=== PATIENT | male | born 1945 | race Caucasian/White ===

== ENCOUNTER 2016-09-15 10:58 | Emergency (ER) | payer OTHER ==
[~2016-09-15] VITALS: Wt 64.0 kg
[2016-09-15] MEDS ORDERED: ACETAMINOPHEN 500 MG TAB PO STA (11:46)
[2016-09-15] MEDS ORDERED: ACET500C5 PO (14:24)
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
== END 2016-09-15 14:50 | disposition home or self-care (01) ==
LOC: FTE 10:58
DX: S46.212A Strain of muscle, fascia and tendon of other parts of biceps, left arm, initial encounter (principal); V49.49XA Driver injured in collision with other motor vehicles in traffic accident, initial encounter
CPT/HCPCS: 72040; 73060; 73630

== ENCOUNTER 2018-10-30 17:58 | Inpatient (IN) | payer OTHER ==
[~2018-10-30] VITALS: Ht 167.6 cm; Wt 63.7 kg
[~2018-10-30 17:58] MED LIST: ACET500C5 PO
[2018-10-30] MEDS ORDERED: PIPER-TAZO 3.375 GM IV (PMX) 100 ML IVPB STA (23:57)
[2018-10-30] MEDS ORDERED: VANCOMYCIN 1 GM (PMX) 250 ML IVPB STA (23:57)
[2018-10-31] MEDS ORDERED: morphine 4 MG/ML VIAL IV STA (01:59)
[2018-10-31] MEDS ORDERED: ONDANSETRON 4 MG INJ IV PRN ×2 (02:00→04:00)
[2018-10-31] MEDS ORDERED: ACETAMINOPHEN 325 MG TAB PO PRN (02:00)
[2018-10-31 03:08] VITALS: Ht 167.6 cm; Wt 63.7 kg
[2018-10-31 03:32] VITALS: BP 159/72; PULSE 85; RESP 18
[2018-10-31] MEDS ORDERED: MTF1000T PO (03:39)
[2018-10-31] MEDS ORDERED: ASPI-831 PO (03:39)
[2018-10-31] MEDS ORDERED: HYDR-3980 PO (03:40)
[2018-10-31] MEDS ORDERED: ATOR20TA38 PO (03:41)
[2018-10-31] MEDS ORDERED: BENA20TA4 PO (03:43)
[2018-10-31] MEDS ORDERED: SITA100T11 PO (03:43)
[2018-10-31] MEDS ORDERED: GLIP10TA14 PO (03:43)
[2018-10-31] MEDS ORDERED: CLOP75TA27 PO (03:43)
[2018-10-31] MEDS ORDERED: GLUCOSE GEL 15 GRAM TUBE PO PRN ×2 (04:00)
[2018-10-31] MEDS ORDERED: DEXTROSE 50% 50 ML SYRINGE IV PRN ×2 (04:00)
[2018-10-31] MEDS ORDERED: HYDROCODONE/APAP (5/325) TAB PO PRN (04:00)
[2018-10-31] MEDS ORDERED: NACL 0.9% 3 ML SYG IV SCH (04:00)
[2018-10-31] MEDS ORDERED: GLUCAGON 1 MG INJ IM PRN (04:00)
[2018-10-31] MEDS ORDERED: GLUCOSE GEL 15 GRAM TUBE BUCCAL PRN (04:00)
[2018-10-31] MEDS ORDERED: PENDING SANTYL ORDER FOR WOUND CARE XX PRN (05:30)
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
--- NOTE | 2018-10-31 06:52 | HP ---
Date/Time of Note Date/Time of Note DATE: 10/31/18 TIME: 06:49 Assessment/Plan VTE Prophylaxis Pharmacological prophylaxis: heparin Lines/Catheters IV Catheter Type (from Nrsg): Saline Lock Assessment/Plan Assessment/Plan 1. Right great toe infection -IV antibiotic -Podiatry and ID consult -X-ray of foot. Additional imaging as needed 2. Hypertension: Continue home meds. Adjust as needed 3. Type 2 diabetes: Insulin while in-house Result Diagram: 10/31/18 0544 10/31/18 0010 Results 24hrs Laboratory Tests Test 10/31/18 00:10 10/31/18 05:44 White Blood Count 8.4 8.2 Red Blood Count 4.51 L 4.70 Hemoglobin 12.1 L 12.5 L Hematocrit 37.0 L 38.5 L Mean Corpuscular Volume 82.0 81.9 L Mean Corpuscular Hemoglobin 26.8 L 26.6 L Mean Corpuscular Hemoglobin Concent 32.7 32.5 Red Cell Distribution Width 13.2 13.3 Platelet Count 176 190 Mean Platelet Volume 10.8 H 11.3 H Immature Granulocytes % 0.400 0.400 Neutrophils % 55.0 60.2 Lymphocytes % 25.1 21.4 Monocytes % 6.6 6.4 Eosinophils % 12.3 H 11.1 H Basophils % 0.6 0.5 Nucleated Red Blood Cells % 0.0 0.0 Immature Granulocytes # 0.030 0.030 Neutrophils # 4.6 5.0 Lymphocytes # 2.1 1.8 Monocytes # 0.6 0.5 Eosinophils # 1.0 H 0.9 H Basophils # 0.1 0.0 Nucleated Red Blood Cells # 0.0 0.0 Prothrombin Time 12.7 Prothrombin Time Ratio 1.0 INR International Normalized Ratio 0.94 Activated Partial Thromboplast Time 27.0 Sodium Level 136 Potassium Level 4.1 Chloride Level 100 Carbon Dioxide Level 23 Anion Gap 13 Blood Urea Nitrogen 10 Creatinine 0.66 Est Glomerular Filtrat Rate mL/min Glucose Level 164 Calcium Level 9.3 Total Bilirubin 0.2 Direct Bilirubin 0.00 Indirect Bilirubin 0.2 Aspartate Amino Transf (AST/SGOT) 25 Alanine Aminotransferase (ALT/SGPT) 22 Alkaline Phosphatase 80 Total Protein 7.3 Albumin 4.3 Globulin 3.00 Albumin/Globulin Ratio 1.43 HPI/ROS Admit Date/Time Admit Date/Time Oct 31, 2018 at 02:00 Hx of Present Illness This is a 73-year-old male with a history of hypertension, type 2 diabetes, dyslipidemia who presented to the ER complaining of right great toe infection of almost 2 months duration. Patient denied trauma. Patient afebrile, normal WBC. PMH/Family/Social Past Medical History Past Surgical Hx: other (See HPI) Family History Significant Family History: no pertinent family hx Social History Alcohol Use: other Smoking Status: Never smoker Drug Use: none Exam/Review of Systems Vital Signs Exam Constitutional: alert, oriented, well developed, other (No acute distress. Answering questions appropriately) Head: normocephalic, atraumatic Eyes: EOMI, PERRL Respiratory: clear to auscultation, normal air movement Cardiovascular: regular rate and rhythm, nl pulses Gastrointestinal: soft, other (Tenderness in the epigastric area) Extremities: other (Trace pitting edema noted) Medications Current Medications Ondansetron HCl (Zofran Inj) 4 mg BRIDGE ORDER PRN IV NAUSEA/VOMITING; Start 10/31/18 at 02:00; Stop 11/01/18 at 01:59 Acetaminophen (Tylenol Tab) 650 mg ER BRIDGE PRN PO .MILD PAIN 1-3 OR TEMP; Start 10/31/18 at 02:00; Stop 11/01/18 at 01:59 IV Flush (NS 3 ml) 3 ml PER PROTOCOL IV ; Start 10/31/18 at 04:00 Ondansetron HCl (Zofran Inj) 4 mg Q6H PRN IV NAUSEA/VOMITING; Start 10/31/18 at 04:00 Acetaminophen (Tylenol Tab) 650 mg Q6H PRN PO .PAIN 1-3 OR TEMP; Start 10/31/18 at 04:00 Acetaminophen/ Hydrocodone Bitart ([place] (5/325)) 1 tab Q6H PRN PO .MOD PAIN 4- 6; Start 10/31/18 at 04:00 Acetaminophen/ Hydrocodone Bitart ([place] (5/325)) 2 tab Q6H PRN PO .SEVERE PAIN 7-10; Start 10/31/18 at 04:00 Heparin Sodium (Porcine) (Heparin (5000 Units/1ml)) 5,000 unit Q12 SC ; Start 10/31/18 at 09:00 Diagnostic Test (Pha) (Accu-Chek) 1 ea 02 XX ; Start 11/01/18 at 02:00 Insulin Glargine (Lantus) 10 units DAILY@2000 SC ; Start 10/31/18 at 20:00 Insulin Aspart (Novolog Insulin Pen) NOVOLOG *MODERATE* ALGORITHM WITH MEALS BEDTIME SC ; Start 10/31/18 at 08:00 Miscellaneous Information 1 ea NOTE XX ; Start 10/31/18 at 04:00 Glucose (Glutose) 15 gm Q15M PRN PO DECREASED GLUCOSE; Start 10/31/18 at 04:00 Glucose (Glutose) 22.5 gm Q15M PRN PO DECREASED GLUCOSE; Start 10/31/18 at 04:00 Dextrose (D50w Syringe) 25 ml Q15M PRN IV DECREASED GLUCOSE; Start 10/31/18 at 04:00 Dextrose (D50w Syringe) 50 ml Q15M PRN IV DECREASED GLUCOSE; Start 10/31/18 at 04:00 Glucagon (Glucagen) 1 mg Q15M PRN IM DECREASED GLUCOSE; Start 10/31/18 at 04:00 Glucose (Glutose) 15 gm Q15M PRN BUCCAL DECREASED GLUCOSE; Start 10/31/18 at 04:00 [facility]iscellaneous Information [facility] This patient emery... PRN PRN XX WOUND CARE; Start 10/31/18 at 05:30 Coded Allergies: No Known Allergy (Unverified , 10/30/18) Social History Smoking Status: Never smoker Exam/Review of Systems Vital Signs Vitals Vital Signs Date Temp Pulse Resp B/P (MAP) Pulse Ox O2 O2 Flow FiO2 Time Delivery Rate 10/31/18 98.0 85 18 159/72 97 Room Air 03:32 (101) TORRES ALMONTE MD Oct 31, 2018 06:52
[2018-10-31] MEDS: INSULIN ASPART [NOVOLOG] 3 ML PEN SC SCH ×4 (08:00→20:29)
[2018-10-31] MEDS: HEPARIN 5,000 UNIT/1 ML VIAL SC SCH ×2 (08:09→20:29)
[2018-10-31 08:26] VITALS: BP 159/72; PULSE 80; RESP 18
--- NOTE | 2018-10-31 12:54 | PN ---
Date/Time of Note Date/Time of Note DATE: 10/31/18 TIME: 12:50 Assessment/Plan VTE Prophylaxis Risk score (from Ns)>0 risk: 3 SCD applied (from Ns): Yes Pharmacological prophylaxis: other Lines/Catheters IV Catheter Type (from [facility]): [place] Assessment/Plan Hospital Course S: Patient had no acute events, waiting for MRI to be performed. O: VS - see below PE: Gen: No acute distress Head: Atraumatic Eyes: Normal Conjunctiva ENT: Normal External Ears, Nose and Mouth. Neck: Full range of motion. No meningismus. Resp: Clear to auscultation bilaterally Cardio: Regular rate and rhythm, no murmurs Abd: Soft, non tender, non distended. Normal bowel sounds Ext: Right big toe with necrotic tip and surrounding purulent drainage from the wound. Distal foot with erythema, warmth, swelling, and tenderness to palpation. Very faint DP and PT pulses bilaterally. Bilateral feet warm to touch. The rest of the legs are nonedematous. No cyanosis. Neur: No focal deficits Assessment/Plan: 73-year-old male who presents with: 1. Right great toe infection: No fevers, white blood cell count is normal -For now continue IV antibiotic -Follow-up recommendations from podiatry and ID consult -consider vascular surgery consult as patient states he does see a vascular surgeon as an outpatient but does not remember the name of this doctor. -Awaiting MRI of the foot, follow-up results of this 2. Hypertension: Presently stable - continue home meds. Adjust as needed 3. Type 2 diabetes: A1c was 6.7 -Monitor, continue insulin while in-house Result Diagram: 10/31/18 0544 10/31/18 0544 Results 24hrs Laboratory Tests Test 10/31/18 00:10 10/31/18 05:44 10/31/18 08:02 10/31/18 12:06 White Blood Count 8.4 8.2 Red Blood Count 4.51 L 4.70 Hemoglobin 12.1 L 12.5 L Hematocrit 37.0 L 38.5 L Mean Corpuscular 82.0 81.9 L Volume Mean Corpuscular 26.8 L 26.6 L Hemoglobin Mean Corpuscular 32.7 32.5 Hemoglobin Concent Red Cell 13.2 13.3 Distribution Width Platelet Count 176 190 Mean Platelet Volume 10.8 H 11.3 H Immature 0.400 0.400 Granulocytes % Neutrophils % 55.0 60.2 Lymphocytes % 25.1 21.4 Monocytes % 6.6 6.4 Eosinophils % 12.3 H 11.1 H Basophils % 0.6 0.5 Nucleated Red Blood 0.0 0.0 Cells % Immature 0.030 0.030 Granulocytes # Neutrophils # 4.6 5.0 Lymphocytes # 2.1 1.8 Monocytes # 0.6 0.5 Eosinophils # 1.0 H 0.9 H Basophils # 0.1 0.0 Nucleated Red Blood 0.0 0.0 Cells # Prothrombin Time 12.7 Prothrombin Time 1.0 Ratio INR International 0.94 Normalized Ratio Activated 27.0 Partial Thromboplast Time Sodium Level 136 142 Potassium Level 4.1 4.2 Chloride Level 100 106 Carbon Dioxide Level 23 25 Anion Gap 13 11 Blood Urea Nitrogen 10 10 Creatinine 0.66 0.63 Est Glomerular Filtrat Rate mL/min Glucose Level 164 67 #L Calcium Level 9.3 9.5 Total Bilirubin 0.2 0.2 Direct Bilirubin 0.00 0.00 Indirect Bilirubin 0.2 0.2 Aspartate Amino 25 21 Transf (AST/SGOT) Alanine 22 20 Aminotransferase (AL T/SGPT) Alkaline Phosphatase 80 78 Total Protein 7.3 7.0 Albumin 4.3 4.1 Globulin 3.00 2.90 Albumin/Globulin 1.43 1.41 Ratio Hemoglobin A1c 6.7 H Phosphorus Level 4.3 Magnesium Level 1.9 Triglycerides Level 111 Cholesterol Level 71 L LDL Cholesterol, 17 Calculated HDL Cholesterol 32 Cholesterol/HDL 2.2 Ratio Bedside Glucose 110 141 Exam/Review of Systems Exam Vitals Vital Signs Date Temp Pulse Resp B/P (MAP) Pulse Ox O2 O2 Flow FiO2 Time Delivery Rate 10/31/18 97.5 80 18 159/72 97 08:26 (101) 10/31/18 Room Air 03:32 Results Results 24hrs Laboratory Tests Test 10/31/18 00:10 10/31/18 05:44 10/31/18 08:02 10/31/18 12:06 White Blood Count 8.4 8.2 Red Blood Count 4.51 L 4.70 Hemoglobin 12.1 L 12.5 L Hematocrit 37.0 L 38.5 L Mean Corpuscular 82.0 81.9 L Volume Mean Corpuscular 26.8 L 26.6 L Hemoglobin Mean Corpuscular 32.7 32.5 Hemoglobin Concent Red Cell 13.2 13.3 Distribution Width Platelet Count 176 190 Mean Platelet Volume 10.8 H 11.3 H Immature 0.400 0.400 Granulocytes % Neutrophils % 55.0 60.2 Lymphocytes % 25.1 21.4 Monocytes % 6.6 6.4 Eosinophils % 12.3 H 11.1 H Basophils % 0.6 0.5 Nucleated Red Blood 0.0 0.0 Cells % Immature 0.030 0.030 Granulocytes # Neutrophils # 4.6 5.0 Lymphocytes # 2.1 1.8 Monocytes # 0.6 0.5 Eosinophils # 1.0 H 0.9 H Basophils # 0.1 0.0 Nucleated Red Blood 0.0 0.0 Cells # Prothrombin Time 12.7 Prothrombin Time 1.0 Ratio INR International 0.94 Normalized Ratio Activated 27.0 Partial Thromboplast Time Sodium Level 136 142 Potassium Level 4.1 4.2 Chloride Level 100 106 Carbon Dioxide Level 23 25 Anion Gap 13 11 Blood Urea Nitrogen 10 10 Creatinine 0.66 0.63 Est Glomerular Filtrat Rate mL/min Glucose Level 164 67 #L Calcium Level 9.3 9.5 Total Bilirubin 0.2 0.2 Direct Bilirubin 0.00 0.00 Indirect Bilirubin 0.2 0.2 Aspartate Amino 25 21 Transf (AST/SGOT) Alanine 22 20 Aminotransferase (AL T/SGPT) Alkaline Phosphatase 80 78 Total Protein 7.3 7.0 Albumin 4.3 4.1 Globulin 3.00 2.90 Albumin/Globulin 1.43 1.41 Ratio Hemoglobin A1c 6.7 H Phosphorus Level 4.3 Magnesium Level 1.9 Triglycerides Level 111 Cholesterol Level 71 L LDL Cholesterol, 17 Calculated HDL Cholesterol 32 Cholesterol/HDL 2.2 Ratio Bedside Glucose 110 141 Medications Medication Current Medications Ondansetron HCl (Zofran Inj) 4 mg BRIDGE ORDER PRN IV NAUSEA/VOMITING; Start 10/31/18 at 02:00; Stop 11/01/18 at 01:59 Acetaminophen (Tylenol Tab) 650 mg ER BRIDGE PRN PO .MILD PAIN 1-3 OR TEMP; Start 10/31/18 at 02:00; Stop 11/01/18 at 01:59 IV Flush (NS 3 ml) 3 ml PER PROTOCOL IV ; Start 10/31/18 at 04:00 Ondansetron HCl (Zofran Inj) 4 mg Q6H PRN IV NAUSEA/VOMITING; Start 10/31/18 at 04:00 Acetaminophen (Tylenol Tab) 650 mg Q6H PRN PO .PAIN 1-3 OR TEMP; Start 10/31/18 at 04:00 Acetaminophen/ Hydrocodone Bitart ([place] (5/325)) 1 tab Q6H PRN PO .MOD PAIN 4- 6; Start 10/31/18 at 04:00 Acetaminophen/ Hydrocodone Bitart ([place] (5/325)) 2 tab Q6H PRN PO .SEVERE PAIN 7-10; Start 10/31/18 at 04:00 Heparin Sodium (Porcine) (Heparin (5000 Units/1ml)) 5,000 unit Q12 SC Last administered on 10/31/18at 08:09; Admin Dose 5,000 UNIT; Start 10/31/18 at 09:00 Diagnostic Test (Pha) (Accu-Chek) 1 ea 02 XX ; Start 11/01/18 at 02:00 Insulin Glargine (Lantus) 10 units DAILY@2000 SC ; Start 10/31/18 at 20:00 Insulin Aspart (Novolog Insulin Pen) NOVOLOG *MODERATE* ALGORITHM WITH MEALS BEDTIME SC Last administered on 10/31/18at 12:12; Admin Dose 2 UNIT; Start 10/31/18 at 08:00 Miscellaneous Information 1 ea NOTE XX ; Start 10/31/18 at 04:00 Glucose (Glutose) 15 gm Q15M PRN PO DECREASED GLUCOSE; Start 10/31/18 at 04:00 Glucose (Glutose) 22.5 gm Q15M PRN PO DECREASED GLUCOSE; Start 10/31/18 at 04:00 Dextrose (D50w Syringe) 25 ml Q15M PRN IV DECREASED GLUCOSE; Start 10/31/18 at 04:00 Dextrose (D50w Syringe) 50 ml Q15M PRN IV DECREASED GLUCOSE; Start 10/31/18 at 04:00 Glucagon (Glucagen) 1 mg Q15M PRN IM DECREASED GLUCOSE; Start 10/31/18 at 04:00 Glucose (Glutose) 15 gm Q15M PRN BUCCAL DECREASED GLUCOSE; Start 10/31/18 at 04:00 Miscellaneous Information (Pending [facility] Order For Wound Care) This patient emery... PRN PRN XX WOUND CARE; Start 10/31/18 at 05:30 MARIANA PAUL Oct 31, 2018 12:54
--- NOTE | 2018-10-31 13:46 | CONS ---
Assessment/Plan Assessment/Plan Assessment/Plan (Daily) Known PVD s/p RLE angio in past few weeks, w/ improvement in R 1st toe wound/pain but now worsening symptoms again Plan: -Appreciate medial management -Agree w/ abx -Will plan for outpatient RLE angiogram - d/w pt who agrees w/ plan -Cont wound care as per Dr. Wilhelm -D/w Dr. Paul Consultation Date/Type/Reason Admit Date/Time Oct 31, 2018 at 02:00 Date of Consultation: Oct 31, 2018 Reason for Consultation R 1st toe wound Requesting Provider: MARIANA PAUL Date/Time of Note DATE: 10/31/18 TIME: 13:28 Hx of Present Illness 73-year-old male with hypertension, diabetes and known PVD s/p RLE angio w/ revascularization of R AT but poor pedal flow but improvement in R 1st toe wound/pain previously but now presents w/ worsening R 1st toe pain and wound w/ possible infection s/p abx now w/ improved symptoms. He denies issues w/ LLE. All systems reviewed and are negative except as per history of present illness. Past Medical History As per HPI Home Meds Active Scripts Acetaminophen* (Tylophen*) 500 Mg Capsule, 1 CAP PO Q6H PRN for PAIN AND OR ELEVATED TEMP, #18 CAP Prov:EVGENY ZUNIGA MD 09/15/16 Reported Medications Sitagliptin* (Januvia*) 100 Mg Tablet, 100 MG PO DAILY, #30 TAB 10/31/18 Glipizide* (Glipizide*) 10 Mg Tablet, 10 MG PO BID, TAB 10/31/18 Benazepril Hcl* (Benazepril Hcl*) 20 Mg Tablet, 20 MG PO DAILY, #30 TAB 10/31/18 Clopidogrel Bisulfate (Clopidogrel) 75 Mg Tablet, 75 MG PO DAILY, #30 TAB 10/31/18 Atorvastatin Calcium* (Atorvastatin Calcium*) 20 Mg Tablet, 1 MG PO QHS, #30 TAB 10/31/18 Hydrocodone/Acetaminophen ([place] 10-325 Tablet) 1 Each Tablet, 1 EACH PO Q6, TAB 10/31/18 Aspirin (Aspirin) 81 Mg Chew, 81 MG PO DAILY, TAB.CHEW 10/31/18 Metformin* (Glucophage*) 1,000 Mg Tablet, 1000 MG PO BID, TAB 10/31/18 Medications Current Medications Ondansetron HCl (Zofran Inj) 4 mg BRIDGE ORDER PRN IV NAUSEA/VOMITING; Start 10/31/18 at 02:00; Stop 11/01/18 at 01:59 Acetaminophen (Tylenol Tab) 650 mg ER BRIDGE PRN PO .MILD PAIN 1-3 OR TEMP; Start 10/31/18 at 02:00; Stop 11/01/18 at 01:59 IV Flush (NS 3 ml) 3 ml PER PROTOCOL IV ; Start 10/31/18 at 04:00 Ondansetron HCl (Zofran Inj) 4 mg Q6H PRN IV NAUSEA/VOMITING; Start 10/31/18 at 04:00 Acetaminophen (Tylenol Tab) 650 mg Q6H PRN PO .PAIN 1-3 OR TEMP; Start 10/31/18 at 04:00 Acetaminophen/ Hydrocodone Bitart ([place] (5/325)) 1 tab Q6H PRN PO .MOD PAIN 4- 6; Start 10/31/18 at 04:00 Acetaminophen/ Hydrocodone Bitart ([place] (5/325)) 2 tab Q6H PRN PO .SEVERE PAIN 7-10; Start 10/31/18 at 04:00 Heparin Sodium (Porcine) (Heparin (5000 Units/1ml)) 5,000 unit Q12 SC Last administered on 10/31/18at 08:09; Admin Dose 5,000 UNIT; Start 10/31/18 at 09:00 Diagnostic Test (Pha) (Accu-Chek) 1 ea 02 XX ; Start 11/01/18 at 02:00 Insulin Glargine (Lantus) 10 units DAILY@2000 SC ; Start 10/31/18 at 20:00 Insulin Aspart (Novolog Insulin Pen) NOVOLOG *MODERATE* ALGORITHM WITH MEALS BEDTIME SC Last administered on 10/31/18at 12:12; Admin Dose 2 UNIT; Start 10/31/18 at 08:00 Miscellaneous Information 1 ea NOTE XX ; Start 10/31/18 at 04:00 Glucose (Glutose) 15 gm Q15M PRN PO DECREASED GLUCOSE; Start 10/31/18 at 04:00 Glucose (Glutose) 22.5 gm Q15M PRN PO DECREASED GLUCOSE; Start 10/31/18 at 04:00 Dextrose (D50w Syringe) 25 ml Q15M PRN IV DECREASED GLUCOSE; Start 10/31/18 at 04:00 Dextrose (D50w Syringe) 50 ml Q15M PRN IV DECREASED GLUCOSE; Start 10/31/18 at 04:00 Glucagon (Glucagen) 1 mg Q15M PRN IM DECREASED GLUCOSE; Start 10/31/18 at 04:00 Glucose (Glutose) 15 gm Q15M PRN BUCCAL DECREASED GLUCOSE; Start 10/31/18 at 04:00 Miscellaneous Information (Pending Santyl Order For Wound Care) This patient emery... PRN PRN XX WOUND CARE; Start 10/31/18 at 05:30 Atorvastatin Calcium (Lipitor) 1 mg QHS PO ; Start 10/31/18 at 21:00; Status UNV Allergies: Coded Allergies: No Known Allergy (Unverified , 10/30/18) Past Surgical History RLE angiogram w/ revascularization to R SUDHAKAR but poor pedal flow Eye surgery Social History Alcohol Use: occasionally Smoking Status: Never smoker Exam/Review of Systems Exam Vitals Vital Signs Date Temp Pulse Resp B/P (MAP) Pulse Ox O2 O2 Flow FiO2 Time Delivery Rate 10/31/18 97.5 80 18 159/72 97 08:26 (101) 10/31/18 Room Air 03:32 Exam Gen: AAOx3, NAD Neck: supple Heart: Reg Lungs: clear Abd: soft, NT, ND Extr: BLE warm, no edema. R 1st toe tip gangrenous wound w/ mild erythema and tenderness, no drainage Pulses: 2+ bilateral femoral and popliteal pulses, non-palp pedal pulses bilaterally Results Result Diagram: 10/31/18 0544 10/31/18 0544 Results 24hrs Laboratory Tests Test 10/31/18 00:10 10/31/18 05:44 10/31/18 08:02 10/31/18 12:06 White Blood Count 8.4 8.2 Red Blood Count 4.51 L 4.70 Hemoglobin 12.1 L 12.5 L Hematocrit 37.0 L 38.5 L Mean Corpuscular 82.0 81.9 L Volume Mean Corpuscular 26.8 L 26.6 L Hemoglobin Mean Corpuscular 32.7 32.5 Hemoglobin Concent Red Cell 13.2 13.3 Distribution Width Platelet Count 176 190 Mean Platelet Volume 10.8 H 11.3 H Immature 0.400 0.400 Granulocytes % Neutrophils % 55.0 60.2 Lymphocytes % 25.1 21.4 Monocytes % 6.6 6.4 Eosinophils % 12.3 H 11.1 H Basophils % 0.6 0.5 Nucleated Red Blood 0.0 0.0 Cells % Immature 0.030 0.030 Granulocytes # Neutrophils # 4.6 5.0 Lymphocytes # 2.1 1.8 Monocytes # 0.6 0.5 Eosinophils # 1.0 H 0.9 H Basophils # 0.1 0.0 Nucleated Red Blood 0.0 0.0 Cells # Prothrombin Time 12.7 Prothrombin Time 1.0 Ratio INR International 0.94 Normalized Ratio Activated 27.0 Partial Thromboplast Time Sodium Level 136 142 Potassium Level 4.1 4.2 Chloride Level 100 106 Carbon Dioxide Level 23 25 Anion Gap 13 11 Blood Urea Nitrogen 10 10 Creatinine 0.66 0.63 Est Glomerular Filtrat Rate mL/min Glucose Level 164 67 #L Calcium Level 9.3 9.5 Total Bilirubin 0.2 0.2 Direct Bilirubin 0.00 0.00 Indirect Bilirubin 0.2 0.2 Aspartate Amino 25 21 Transf (AST/SGOT) Alanine 22 20 Aminotransferase (AL T/SGPT) Alkaline Phosphatase 80 78 Total Protein 7.3 7.0 Albumin 4.3 4.1 Globulin 3.00 2.90 Albumin/Globulin 1.43 1.41 Ratio Hemoglobin A1c 6.7 H Phosphorus Level 4.3 Magnesium Level 1.9 Triglycerides Level 111 Cholesterol Level 71 L LDL Cholesterol, 17 Calculated HDL Cholesterol 32 Cholesterol/HDL 2.2 Ratio Bedside Glucose 110 141 Medications Medication Current Medications Ondansetron HCl (Zofran Inj) 4 mg BRIDGE ORDER PRN IV NAUSEA/VOMITING; Start 10/31/18 at 02:00; Stop 11/01/18 at 01:59 Acetaminophen (Tylenol Tab) 650 mg ER BRIDGE PRN PO .MILD PAIN 1-3 OR TEMP; Start 10/31/18 at 02:00; Stop 11/01/18 at 01:59 IV Flush (NS 3 ml) 3 ml PER PROTOCOL IV ; Start 10/31/18 at 04:00 Ondansetron HCl (Zofran Inj) 4 mg Q6H PRN IV NAUSEA/VOMITING; Start 10/31/18 at 04:00 Acetaminophen (Tylenol Tab) 650 mg Q6H PRN PO .PAIN 1-3 OR TEMP; Start 10/31/18 at 04:00 Acetaminophen/ Hydrocodone Bitart ([place] (5/325)) 1 tab Q6H PRN PO .MOD PAIN 4- 6; Start 10/31/18 at 04:00 Acetaminophen/ Hydrocodone Bitart ([place] (5/325)) 2 tab Q6H PRN PO .SEVERE PAIN 7-10; Start 10/31/18 at 04:00 Heparin Sodium (Porcine) (Heparin (5000 Units/1ml)) 5,000 unit Q12 SC Last administered on 10/31/18at 08:09; Admin Dose 5,000 UNIT; Start 10/31/18 at 09:00 Diagnostic Test (Pha) (Accu-Chek) 1 ea 02 XX ; Start 11/01/18 at 02:00 Insulin Glargine (Lantus) 10 units DAILY@2000 SC ; Start 10/31/18 at 20:00 Insulin Aspart (Novolog Insulin Pen) NOVOLOG *MODERATE* ALGORITHM WITH MEALS BEDTIME SC Last administered on 10/31/18at 12:12; Admin Dose 2 UNIT; Start 10/31/18 at 08:00 Miscellaneous Information 1 ea NOTE XX ; Start 10/31/18 at 04:00 Glucose (Glutose) 15 gm Q15M PRN PO DECREASED GLUCOSE; Start 10/31/18 at 04:00 Glucose (Glutose) 22.5 gm Q15M PRN PO DECREASED GLUCOSE; Start 10/31/18 at 04:00 Dextrose (D50w Syringe) 25 ml Q15M PRN IV DECREASED GLUCOSE; Start 10/31/18 at 04:00 Dextrose (D50w Syringe) 50 ml Q15M PRN IV DECREASED GLUCOSE; Start 10/31/18 at 04:00 Glucagon (Glucagen) 1 mg Q15M PRN IM DECREASED GLUCOSE; Start 10/31/18 at 04:00 Glucose (Glutose) 15 gm Q15M PRN BUCCAL DECREASED GLUCOSE; Start 10/31/18 at 04:00 Miscellaneous Information (Pending Santyl Order For Wound Care) This patient emery... PRN PRN XX WOUND CARE; Start 10/31/18 at 05:30 Atorvastatin Calcium (Lipitor) 1 mg QHS PO ; Start 10/31/18 at 21:00; Status UN SAMANTA FROST MD Oct 31, 2018 13:45
[2018-10-31 14:54] VITALS: BP 158/72; PULSE 83; RESP 18
[2018-10-31] MEDS: HYDROCODONE/APAP (5/325) TAB PO PRN ×2 (17:51→22:01)
[2018-10-31] MEDS ORDERED: ATORVASTATIN 20 MG TAB ONE (19:50)
[2018-10-31 20:00] VITALS: BP 148/70; PULSE 78; RESP 18
[2018-10-31] MEDS: INSULIN GLARGINE [LANTus] (100 UNITS/ML) SYG SC SCH (20:29)
[2018-10-31] MEDS: ATORVASTATIN 20 MG TAB PO SCH (20:30)
--- NOTE | 2018-10-31 20:55 | CONS ---
Assessment/Plan Assessment/Plan Assessment/Plan (Daily) Dry gangrene right hallux Cellulitis right foot DM2 with peripheral neuropathy PAD Plan Discussed case with Dr. 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 Not advised for any debridements at this time. Recommend daily betadine with dry sterile dressings to the right hallux. Recommend surgical shoe during ambulation. Offload heels while resting in bed. Continue with IV abx. Consultation Date/Type/Reason Admit Date/Time Oct 31, 2018 at 02:00 Date/Time of Note DATE: 10/31/18 TIME: 20:54 Hx of Present Illness 73 y/o M patient presents to the floor with right distal gangrene of great toe. Patient states it's been present for nearly two months and had noticed redness around the toe. He notices aches and pains to the area. Patient had previous vascular work up done and was noted to have decreased blood flow to the lower extremities. Patient denies f/c/n/v no chest pains or shortness of breath. ROS Negative except for HPI Past Medical History hypertension, type 2 diabetes, dyslipidemia Home Meds Active Scripts Acetaminophen* (Tylophen*) 500 Mg Capsule, 1 CAP PO Q6H PRN for PAIN AND OR ELEVATED TEMP, #18 CAP Prov:EVGENY ZUNIGA MD 09/15/16 Reported Medications Sitagliptin* (Januvia*) 100 Mg Tablet, 100 MG PO DAILY, #30 TAB 10/31/18 Glipizide* (Glipizide*) 10 Mg Tablet, 10 MG PO BID, TAB 10/31/18 Benazepril Hcl* (Benazepril Hcl*) 20 Mg Tablet, 20 MG PO DAILY, #30 TAB 10/31/18 Clopidogrel Bisulfate (Clopidogrel) 75 Mg Tablet, 75 MG PO DAILY, #30 TAB 10/31/18 Atorvastatin Calcium* (Atorvastatin Calcium*) 20 Mg Tablet, 1 MG PO QHS, #30 TAB 10/31/18 Hydrocodone/Acetaminophen ([place] 10-325 Tablet) 1 Each Tablet, 1 EACH PO Q6, TAB 10/31/18 Aspirin (Aspirin) 81 Mg Chew, 81 MG PO DAILY, TAB.CHEW 10/31/18 Metformin* (Glucophage*) 1,000 Mg Tablet, 1000 MG PO BID, TAB 10/31/18 Medications Current Medications Ondansetron HCl (Zofran Inj) 4 mg BRIDGE ORDER PRN IV NAUSEA/VOMITING; Start 10/31/18 at 02:00; Stop 11/01/18 at 01:59 Acetaminophen (Tylenol Tab) 650 mg ER BRIDGE PRN PO .MILD PAIN 1-3 OR TEMP; Start 10/31/18 at 02:00; Stop 11/01/18 at 01:59 IV Flush (NS 3 ml) 3 ml PER PROTOCOL IV ; Start 10/31/18 at 04:00 Ondansetron HCl (Zofran Inj) 4 mg Q6H PRN IV NAUSEA/VOMITING; Start 10/31/18 at 04:00 Acetaminophen (Tylenol Tab) 650 mg Q6H PRN PO .PAIN 1-3 OR TEMP; Start 10/31/18 at 04:00 Acetaminophen/ Hydrocodone Bitart ([place] (5/325)) 1 tab Q6H PRN PO .MOD PAIN 4- 6; Start 10/31/18 at 04:00 Acetaminophen/ Hydrocodone Bitart ([place] (5/325)) 2 tab Q6H PRN PO .SEVERE PAIN 7-10 Last administered on 10/31/18at 17:51; Admin Dose 2 TAB; Start 10/31/18 at 04:00 Heparin Sodium (Porcine) (Heparin (5000 Units/1ml)) 5,000 unit Q12 SC Last administered on 10/31/18at 20:29; Admin Dose 5,000 UNIT; Start 10/31/18 at 09:00 Diagnostic Test (Pha) (Accu-Chek) 1 ea 02 XX ; Start 11/01/18 at 02:00 Insulin Glargine (Lantus) 10 units DAILY@2000 SC Last administered on 10/31/18at 20:29; Admin Dose 10 UNITS; Start 10/31/18 at 20:00 Insulin Aspart (Novolog Insulin Pen) NOVOLOG *MODERATE* ALGORITHM WITH MEALS BEDTIME SC Last administered on 10/31/18at 20:29; Admin Dose 1 UNIT; Start 10/31/18 at 08:00 Miscellaneous Information 1 ea NOTE XX ; Start 10/31/18 at 04:00 Glucose (Glutose) 15 gm Q15M PRN PO DECREASED GLUCOSE; Start 10/31/18 at 04:00 Glucose (Glutose) 22.5 gm Q15M PRN PO DECREASED GLUCOSE; Start 10/31/18 at 04:00 Dextrose (D50w Syringe) 25 ml Q15M PRN IV DECREASED GLUCOSE; Start 10/31/18 at 04:00 Dextrose (D50w Syringe) 50 ml Q15M PRN IV DECREASED GLUCOSE; Start 10/31/18 at 04:00 Glucagon (Glucagen) 1 mg Q15M PRN IM DECREASED GLUCOSE; Start 10/31/18 at 04:00 Glucose (Glutose) 15 gm Q15M PRN BUCCAL DECREASED GLUCOSE; Start 10/31/18 at 04:00 Miscellaneous Information (Pending Santyl Order For Wound Care) This patient emery... PRN PRN XX WOUND CARE; Start 10/31/18 at 05:30 Atorvastatin Calcium (Lipitor) 20 mg QHS PO Last administered on 10/31/18at 20:30; Admin Dose 20 MG; Start 10/31/18 at 21:00 Allergies: Coded Allergies: No Known Allergy (Unverified , 10/30/18) Past Surgical History Previous angiogram Social History Alcohol Use: occasionally Smoking Status: Never smoker Exam/Review of Systems Exam Vitals Vital Signs Date Temp Pulse Resp B/P (MAP) Pulse Ox O2 O2 Flow FiO2 Time Delivery Rate 10/31/18 98.1 78 18 148/70 96 Room Air 20:00 (96) Exam Non palpable pedal pulses Skin temperature gradient warm to cool Erythema at the hallux site of the right foot Dry gangrene to the distal tip of hallux 1.5 x 1.5cm indeterminate depth. Absent protective sensations mild pain on palpation to the hallux Muscle strength 5/5 in all compartments of the foot. Results Result Diagram: 10/31/18 0544 10/31/18 0544 Results 24hrs Laboratory Tests Test 10/31/18 00:10 10/31/18 05:44 10/31/18 08:02 10/31/18 12:06 White Blood Count 8.4 8.2 Red Blood Count 4.51 L 4.70 Hemoglobin 12.1 L 12.5 L Hematocrit 37.0 L 38.5 L Mean Corpuscular 82.0 81.9 L Volume Mean Corpuscular 26.8 L 26.6 L Hemoglobin Mean Corpuscular 32.7 32.5 Hemoglobin Concent Red Cell 13.2 13.3 Distribution Width Platelet Count 176 190 Mean Platelet Volume 10.8 H 11.3 H Immature 0.400 0.400 Granulocytes % Neutrophils % 55.0 60.2 Lymphocytes % 25.1 21.4 Monocytes % 6.6 6.4 Eosinophils % 12.3 H 11.1 H Basophils % 0.6 0.5 Nucleated Red Blood 0.0 0.0 Cells % Immature 0.030 0.030 Granulocytes # Neutrophils # 4.6 5.0 Lymphocytes # 2.1 1.8 Monocytes # 0.6 0.5 Eosinophils # 1.0 H 0.9 H Basophils # 0.1 0.0 Nucleated Red Blood 0.0 0.0 Cells # Prothrombin Time 12.7 Prothrombin Time 1.0 Ratio INR International 0.94 Normalized Ratio Activated 27.0 Partial Thromboplast Time Sodium Level 136 142 Potassium Level 4.1 4.2 Chloride Level 100 106 Carbon Dioxide Level 23 25 Anion Gap 13 11 Blood Urea Nitrogen 10 10 Creatinine 0.66 0.63 Est Glomerular Filtrat Rate mL/min Glucose Level 164 67 #L Calcium Level 9.3 9.5 Total Bilirubin 0.2 0.2 Direct Bilirubin 0.00 0.00 Indirect Bilirubin 0.2 0.2 Aspartate Amino 25 21 Transf (AST/SGOT) Alanine 22 20 Aminotransferase (AL T/SGPT) Alkaline Phosphatase 80 78 Total Protein 7.3 7.0 Albumin 4.3 4.1 Globulin 3.00 2.90 Albumin/Globulin 1.43 1.41 Ratio Hemoglobin A1c 6.7 H Phosphorus Level 4.3 Magnesium Level 1.9 Triglycerides Level 111 Cholesterol Level 71 L LDL Cholesterol, 17 Calculated HDL Cholesterol 32 Cholesterol/HDL 2.2 Ratio Bedside Glucose 110 141 Test 10/31/18 17:43 10/31/18 20:25 Bedside Glucose 127 185 Medications Medication Current Medications Ondansetron HCl (Zofran Inj) 4 mg BRIDGE ORDER PRN IV NAUSEA/VOMITING; Start 10/31/18 at 02:00; Stop 11/01/18 at 01:59 Acetaminophen (Tylenol Tab) 650 mg ER BRIDGE PRN PO .MILD PAIN 1-3 OR TEMP; Start 10/31/18 at 02:00; Stop 11/01/18 at 01:59 IV Flush (NS 3 ml) 3 ml PER PROTOCOL IV ; Start 10/31/18 at 04:00 Ondansetron HCl (Zofran Inj) 4 mg Q6H PRN IV NAUSEA/VOMITING; Start 10/31/18 at 04:00 Acetaminophen (Tylenol Tab) 650 mg Q6H PRN PO .PAIN 1-3 OR TEMP; Start 10/31/18 at 04:00 Acetaminophen/ Hydrocodone Bitart ([place] (5/325)) 1 tab Q6H PRN PO .MOD PAIN 4-6; Start 10/31/18 at 04:00 Acetaminophen/ Hydrocodone Bitart ([place] (5/325)) 2 tab Q6H PRN PO .SEVERE PAIN 7-10 Last administered on 10/31/18at 17:51; Admin Dose 2 TAB; Start 10/31/18 at 04:00 Heparin Sodium (Porcine) (Heparin (5000 Units/1ml)) 5,000 unit Q12 SC Last administered on 10/31/18at 20:29; Admin Dose 5,000 UNIT; Start 10/31/18 at 09:00 Diagnostic Test (Pha) (Accu-Chek) 1 ea 02 XX ; Start 11/01/18 at 02:00 Insulin Glargine (Lantus) 10 units DAILY@2000 SC Last administered on 10/31/18at 20:29; Admin Dose 10 UNITS; Start 10/31/18 at 20:00 Insulin Aspart (Novolog Insulin Pen) NOVOLOG *MODERATE* ALGORITHM WITH MEALS BEDTIME SC Last administered on 10/31/18at 20:29; Admin Dose 1 UNIT; Start 10/31/18 at 08:00 Miscellaneous Information 1 ea NOTE XX ; Start 10/31/18 at 04:00 Glucose (Glutose) 15 gm Q15M PRN PO DECREASED GLUCOSE; Start 10/31/18 at 04:00 Glucose (Glutose) 22.5 gm Q15M PRN PO DECREASED GLUCOSE; Start 10/31/18 at 04:00 Dextrose (D50w Syringe) 25 ml Q15M PRN IV DECREASED GLUCOSE; Start 10/31/18 at 04:00 Dextrose (D50w Syringe) 50 ml Q15M PRN IV DECREASED GLUCOSE; Start 10/31/18 at 04:00 Glucagon (Glucagen) 1 mg Q15M PRN IM DECREASED GLUCOSE; Start 10/31/18 at 04:00 Glucose (Glutose) 15 gm Q15M PRN BUCCAL DECREASED GLUCOSE; Start 10/31/18 at 04:00 Miscellaneous Information (Pending Santyl Order For Wound Care) This patient emery... PRN PRN XX WOUND CARE; Start 10/31/18 at 05:30 Atorvastatin Calcium (Lipitor) 20 mg QHS PO Last administered on 10/31/18at 20:30; Admin Dose 20 MG; Start 10/31/18 at 21:00 JESUS RAMÍREZ DPM Oct 31, 2018 20:55
[2018-11-01 02:00] VITALS: BP 134/61; PULSE 65; RESP 18
[2018-11-01] MEDS: ACCU-CHEK XX SCH (02:15)
[2018-11-01] MEDS: ACETAMINOPHEN 325 MG TAB PO PRN ×3 (02:16→15:31)
[2018-11-01] MEDS: HYDROCODONE/APAP (5/325) TAB PO PRN ×2 (05:19→20:11)
[2018-11-01 07:15] VITALS: BP 137/67; PULSE 66; RESP 18
[2018-11-01] MEDS: INSULIN ASPART [NOVOLOG] 3 ML PEN SC SCH ×4 (08:00→20:35)
[2018-11-01] MEDS: HEPARIN 5,000 UNIT/1 ML VIAL SC SCH ×2 (08:52→20:36)
[2018-11-01 14:00] VITALS: BP 138/67; PULSE 64; RESP 18
--- NOTE | 2018-11-01 16:55 | PN ---
Date/Time of Note Date/Time of Note DATE: 11/01/18 TIME: 16:50 Assessment/Plan VTE Prophylaxis Risk score (from Ns)>0 risk: 3 SCD applied (from [facility]): No SCD contraindicated: other Pharmacological prophylaxis: heparin Lines/Catheters IV Catheter Type (from [facility]): [place] Assessment/Plan Hospital Course S: Patient had no acute events, waiting for MRI to be performed. O: VS - see below PE: Gen: No acute distress Head: Atraumatic Eyes: Normal Conjunctiva ENT: Normal External Ears, Nose and Mouth. Neck: Full range of motion. No meningismus. Resp: Clear to auscultation bilaterally Cardio: Regular rate and rhythm, no murmurs Abd: Soft, non tender, non distended. Normal bowel sounds Ext: Right big toe with necrotic tip and surrounding purulent drainage from t he wound. Distal foot with erythema, warmth, swelling, and tenderness to palpation. Very faint DP and PT pulses bilaterally. Bilateral feet warm to touch. No cyanosis. Neur: No focal deficits MRI right foot: IMPRESSION: 1. Subcutaneous edema and skin ulcer in the first digit. 2. Diffuse reactive osteitis in the first distal phalanx with a focus of faint intermediate T1 signal, and early osteomyelitis cannot be completely excluded. 3. Diffuse muscle edema and areas of mild atrophy and fatty infiltration likely neuropathic. 4. Degenerative changes as above. Assessment/Plan: 73-year-old male who presents with: 1. Right great toe infection: No fevers, white blood cell count is normal. MRI results noted. -For now continue IV antibiotics -Follow-up recommendations from podiatry and ID consult -consider vascular surgery consult as patient states he does see a vascular surgeon as an outpatient but does not remember the name of this doctor. -Awaiting MRI of the foot, follow-up results of this 2. Hypertension: Presently stable - continue home meds. Adjust as needed 3. Type 2 diabetes: A1c was 6.7 -Monitor, continue insulin while in-house Result Diagram: 11/01/18 0509 11/01/18 0509 Results 24hrs Laboratory Tests Test 10/31/18 17:43 10/31/18 20:25 11/01/18 02:14 11/01/18 05:09 Bedside Glucose 127 185 89 White Blood Count 6.5 # Red Blood Count 4.41 L Hemoglobin 11.9 L Hematocrit 35.9 L Mean Corpuscular 81.4 L Volume Mean Corpuscular 27.0 L Hemoglobin Mean Corpuscular 33.1 Hemoglobin Concent Red Cell 13.2 Distribution Width Platelet Count 188 Mean Platelet Volume 11.4 H Immature 0.500 H Granulocytes % Neutrophils % 43.3 Lymphocytes % 34.0 Monocytes % 8.6 Eosinophils % 13.0 H Basophils % 0.6 Nucleated Red Blood 0.0 Cells % Immature 0.030 Granulocytes # Neutrophils # 2.8 Lymphocytes # 2.2 Monocytes # 0.6 Eosinophils # 0.9 H Basophils # 0.0 Nucleated Red Blood 0.0 Cells # Sodium Level 138 Potassium Level 4.3 Chloride Level 102 Carbon Dioxide Level 25 Anion Gap 11 Blood Urea Nitrogen 11 Creatinine 0.63 Est Glomerular Filtrat Rate mL/min Glucose Level 94 Calcium Level 9.4 Phosphorus Level 5.3 H Magnesium Level 1.9 Test 11/01/18 07:57 11/01/18 11:48 Bedside Glucose 109 183 Exam/Review of Systems Exam Vitals Vital Signs Date Temp Pulse Resp B/P (MAP) Pulse Ox O2 O2 Flow FiO2 Time Delivery Rate 11/01/18 98.3 64 18 138/67 95 Room Air 14:00 (90) Intake and Output 10/31/18 10/31/18 11/01/18 1515:00 23:00 07:00 IntakeIntake Total 480 ml 240 ml BalanceBalance 480 ml 240 ml Results Results 24hrs Laboratory Tests Test 10/31/18 17:43 10/31/18 20:25 11/01/18 02:14 11/01/18 05:09 Bedside Glucose 127 185 89 White Blood Count 6.5 # Red Blood Count 4.41 L Hemoglobin 11.9 L Hematocrit 35.9 L Mean Corpuscular 81.4 L Volume Mean Corpuscular 27.0 L Hemoglobin Mean Corpuscular 33.1 Hemoglobin Concent Red Cell 13.2 Distribution Width Platelet Count 188 Mean Platelet Volume 11.4 H Immature 0.500 H Granulocytes % Neutrophils % 43.3 Lymphocytes % 34.0 Monocytes % 8.6 Eosinophils % 13.0 H Basophils % 0.6 Nucleated Red Blood 0.0 Cells % Immature 0.030 Granulocytes # Neutrophils # 2.8 Lymphocytes # 2.2 Monocytes # 0.6 Eosinophils # 0.9 H Basophils # 0.0 Nucleated Red Blood 0.0 Cells # Sodium Level 138 Potassium Level 4.3 Chloride Level 102 Carbon Dioxide Level 25 Anion Gap 11 Blood Urea Nitrogen 11 Creatinine 0.63 Est Glomerular Filtrat Rate mL/min Glucose Level 94 Calcium Level 9.4 Phosphorus Level 5.3 H Magnesium Level 1.9 Test 11/01/18 07:57 11/01/18 11:48 Bedside Glucose 109 183 Medications Medication Current Medications IV Flush (NS 3 ml) 3 ml PER PROTOCOL IV ; Start 10/31/18 at 04:00 Ondansetron HCl (Zofran Inj) 4 mg Q6H PRN IV NAUSEA/VOMITING; Start 10/31/18 at 04:00 Acetaminophen (Tylenol Tab) 650 mg Q6H PRN PO .PAIN 1-3 OR TEMP Last administered on 11/01/18at 15:31; Admin Dose 650 MG; Start 10/31/18 at 04:00 Acetaminophen/ Hydrocodone Bitart ([place] (5/325)) 1 tab Q6H PRN PO .MOD PAIN 4- 6 Last administered on 11/01/18 11:53; Admin Dose 1 TAB; Start 10/31/18 at 04:00 Acetaminophen/ Hydrocodone Bitart ([place] (5/325)) 2 tab Q6H PRN PO .SEVERE PAIN 7-10 Last administered on 11/01/18 05:19; Admin Dose 2 TAB; Start 10/31/18 at 04:00 Heparin Sodium (Porcine) (Heparin (5000 Units/1ml)) 5,000 unit Q12 SC Last administered on 11/01/18 08:52; Admin Dose 5,000 UNIT; Start 10/31/18 at 09:00 Diagnostic Test (Pha) (Accu-Chek) 1 ea 02 XX Last administered on 11/01/18at 02:15; Admin Dose 1 EA; Start 11/01/18 at 02:00 Insulin Glargine (Lantus) 10 units DAILY@2000 SC Last administered on 10/31/18at 20:29; Admin Dose 10 UNITS; Start 10/31/18 at 20:00 Insulin Aspart (Novolog Insulin Pen) NOVOLOG *MODERATE* ALGORITHM WITH MEALS BEDTIME SC Last administered on 11/01/18at 12:00; Admin Dose 4 UNIT; Start at 08:00 Miscellaneous Information 1 ea NOTE XX ; Start 10/31/18 at 04:00 Glucose (Glutose) 15 gm Q15M PRN PO DECREASED GLUCOSE; Start 10/31/18 at 04:00 Glucose (Glutose) 22.5 gm Q15M PRN PO DECREASED GLUCOSE; Start 10/31/18 at 04:00 Dextrose (D50w Syringe) 25 ml Q15M PRN IV DECREASED GLUCOSE; Start 10/31/18 at 04:00 Dextrose (D50w Syringe) 50 ml Q15M PRN IV DECREASED GLUCOSE; Start 10/31/18 at 04:00 Glucagon (Glucagen) 1 mg Q15M PRN IM DECREASED GLUCOSE; Start 10/31/18 at 04:00 Glucose (Glutose) 15 gm Q15M PRN BUCCAL DECREASED GLUCOSE; Start 10/31/18 at 04:00 Miscellaneous Information (Pending Santyl Order For Wound Care) This patient emery... PRN PRN XX WOUND CARE; Start 10/31/18 at 05:30 Atorvastatin Calcium (Lipitor) 20 mg QHS PO Last administered on 10/31/18at 20:30; Admin Dose 20 MG; Start 10/31/18 at 21:00 MARIANA PAUL Nov 01, 2018 16:55
[2018-11-01] MEDS ORDERED: VANCOMYCIN IV PER PHARMACY XX SCH (17:00)
[2018-11-01] MEDS: PIPER-TAZO 3.375 GM IV (PMX) 100 ML IVPB SCH ×2 (17:17→23:32)
[2018-11-01] MEDS ORDERED: VANCOMYCIN HCL 1.25 GM in SOD CHLORIDE 0.9% 250 ML IVPB ONE (18:00)
[2018-11-01 20:00] VITALS: BP 177/74; PULSE 70; RESP 18
[2018-11-01] MEDS: INSULIN GLARGINE [LANTus] (100 UNITS/ML) SYG SC SCH (20:35)
[2018-11-01] MEDS: ATORVASTATIN 20 MG TAB PO SCH (20:39)
[2018-11-01 20:51] VITALS: BP 167/75; PULSE 65
[2018-11-02 02:00] VITALS: BP 144/67; PULSE 63; RESP 18
[2018-11-02] MEDS: ACCU-CHEK XX SCH (02:00)
[2018-11-02] MEDS: HYDROCODONE/APAP (5/325) TAB PO PRN (03:59)
[2018-11-02] MEDS: PIPER-TAZO 3.375 GM IV (PMX) 100 ML IVPB SCH ×2 (05:57→12:24)
[2018-11-02] MEDS ORDERED: morphine 4 MG/ML VIAL IV ONE (06:30)
[2018-11-02] MEDS: INSULIN ASPART [NOVOLOG] 3 ML PEN SC SCH ×2 (08:00→12:28)
[2018-11-02 08:24] VITALS: BP 123/59; PULSE 59; RESP 18
[2018-11-02] MEDS: HEPARIN 5,000 UNIT/1 ML VIAL SC SCH (08:33)
[2018-11-02] MEDS ORDERED: VANCOMYCIN 1 GM 250 ML IVPB SCH (12:00)
--- NOTE | 2018-11-02 12:02 | PDOCDIS ---
Discharge Instructions CONDITION [id number] Patient Condition: [id number] Stable HOME CARE INSTRUCTIONS: [id number] Diet Instructions: [id number] Low Fat /Cholesterol ACTIVITY: [id number] Activity Restrictions: [id number] Slowly Increase Activity Rest between Activity Avoid heavy lifting FOLLOW UP/APPOINTMENTS Follow-up Plan Please follow-up with your vascular surgeon in the clinic in the next few days for your outpatient appointment. Please take your medications as prescribed. MARIANA PAUL Nov 02, 2018 12:02
[2018-11-02] MEDS ORDERED: HYDR4TAB51 PO (12:03)
[2018-11-02] MEDS ORDERED: LEVO750T25 PO (12:03)
--- NOTE | 2018-11-02 12:08 | DS ---
Date/Time of Note Date/Time of Note DATE: 11/02/18 TIME: 12:05 Discharge Summary Admission/Discharge Info Admit Date/Time Oct 31, 2018 at 02:00 Discharge Date/Time Discharge Diagnosis 1. Dry gangrene right first digit: No fevers, white blood cell count is normal. MRI results noted. 2. Right first digit mild cellulitis: Improving 3. Hypertension: Presently stable - continue home meds. Adjust as needed 4. Type 2 diabetes: A1c was 6.7 -Monitor, continue insulin while in-house Patient Condition: Stable Procedures MRI right foot: IMPRESSION: 1. Subcutaneous edema and skin ulcer in the first digit. 2. Diffuse reactive osteitis in the first distal phalanx with a focus of faint intermediate T1 signal, and early osteomyelitis cannot be completely excluded. 3. Diffuse muscle edema and areas of mild atrophy and fatty infiltration likely neuropathic. 4. Degenerative changes as above. Hx of Present Illness 73-year-old male with hypertension, diabetes and known PVD s/p RLE angio w/ revascularization of R AT but poor pedal flow but improvement in R 1st toe wound/pain previously but now presents w/ worsening R 1st toe pain and wound w/ possible infection s/p abx now w/ improved symptoms. He denies issues w/ LLE. Hospital Course Patient was admitted and seen by both vascular surgery team and podiatry team. He was started on antibiotics and MRI of the right foot was performed and results noted above. Patient's cellulitis and gangrene slowly improved but the gangrenous was still present by the time of discharge. Upon discussion between vascular surgery and podiatry teams, they indicated no debridement at this time the patient would follow-up as an outpatient to get an angiogram for further evaluation. Patient agreed to this. In the meantime his pain symptoms were controlled with appropriate medications, vital signs are stable, labs are stable. After getting clearance from the corporate consultant teams he will be discharged home today in improved condition. See below for full list of discharge medications. Of note he will follow-up with vascular surgery team in the clinic in 5 days as well. Home Meds Active Scripts Levofloxacin* (Levaquin*) 750 Mg Tablet, 750 MG PO DAILY for 5 Days, #5 TAB Prov:MARIANA PAUL S. 11/02/18 Acetaminophen* (Tylophen*) 500 Mg Capsule, 1 CAP PO Q6H PRN for PAIN AND OR ELEVATED TEMP, #18 CAP Prov:EVGENY ZUNIGA MD 09/15/16 Reported Medications Sitagliptin* (Januvia*) 100 Mg Tablet, 100 MG PO DAILY, #30 TAB 10/31/18 Glipizide* (Glipizide*) 10 Mg Tablet, 10 MG PO BID, TAB 10/31/18 Benazepril Hcl* (Benazepril Hcl*) 20 Mg Tablet, 20 MG PO DAILY, #30 TAB 10/31/18 Clopidogrel Bisulfate (Clopidogrel) 75 Mg Tablet, 75 MG PO DAILY, #30 TAB 10/31/18 Atorvastatin Calcium* (Atorvastatin Calcium*) 20 Mg Tablet, 1 MG PO QHS, #30 TAB 10/31/18 Hydrocodone/Acetaminophen ([place] 10-325 Tablet) 1 Each Tablet, 1 EACH PO Q6, TAB 10/31/18 Aspirin (Aspirin) 81 Mg Chew, 81 MG PO DAILY, TAB.CHEW 10/31/18 Metformin* (Glucophage*) 1,000 Mg Tablet, 1000 MG PO BID, TAB 10/31/18 Follow-up Plan Please follow-up with your vascular surgeon in the clinic in the next few days for your outpatient appointment. Please take your medications as prescribed. Primary Care Provider Not On Staff Doctor Time spent on discharge: > 30 minutes Pending Labs Laboratory Tests Test 11/01/18 16:56 11/01/18 20:33 11/02/18 02:08 11/02/18 05:55 Bedside 231 218 114 Glucose mg/dL (70-220) mg/dL (70-220) mg/dL (70-220) White Blood 7.0 Count 10^3/ul (4.8-1 0.8) Red Blood 4.49 Count 10^6/ul (4.70- 6.10) Hemoglobin 12.0 g/dl (14.0-18. 0) Hematocrit 36.9 % (42.0-52.0) Mean 82.2 Corpuscular fl (82.0-101.0 Volume ) Mean 26.7 Corpuscular pg (29.0-33.0) Hemoglobin Mean 32.5 Corpuscular g/dl (32.0-37. Hemoglobin Conc 0) ent Red Cell 13.2 Distribution % (11.5-14.5) Width Platelet Count 186 10^3/UL (140-4 15) Mean Platelet 10.9 Volume fl (7.4-10.4) Immature 0.100 Granulocytes % % (0.001-0.429 ) Neutrophils % 44.0 % (39.0-77.0) Lymphocytes % 34.5 % (15.0-51.0) Monocytes % 8.6 % (0.0-11.0) Eosinophils % 12.1 % (0.0-7.0) Basophils % 0.7 % (0.0-2.0) Nucleated Red 0.0 Blood Cells % /100WBC (0.0-0 .0) Immature 0.010 Granulocytes # 10^3/ul (0.0-0 .031) Neutrophils # 3.1 10^3/ul (1.6-7 .5) Lymphocytes # 2.4 10^3/ul (0.8-2 .9) Monocytes # 0.6 10^3/ul (0.3-0 .9) Eosinophils # 0.9 10^3/ul (0.0-0 .5) Basophils # 0.1 10^3/ul (0.0-0 .1) Nucleated Red 0.0 Blood Cells # 10^3/ul (0.0-0 .0) Sodium Level 141 mmol/L (135-14 4) Potassium 4.7 Level mmol/L (3.5-5. 1) Chloride Level 106 mmol/L (97-110 ) Carbon Dioxide 27 Level mmol/L (21-31) Anion Gap 8 (5-13) Blood Urea 11 Nitrogen mg/dl (7-20) Creatinine 0.75 mg/dl (0.61-1. 24) Est Glomerular mL/min (>60) Filtrat Rate mL/min Glucose Level 127 mg/dl (70-220) Calcium Level 9.5 mg/dl (8.4-10. 2) Phosphorus 5.2 Level mg/dl (2.5-4.9 ) Magnesium 2.0 Level mg/dl (1.7-2.5 ) Test 11/02/18 07:55 11/02/18 11:47 Bedside 124 234 Glucose mg/dL (70-220) mg/dL (70-220) MARIANA PAUL Nov 02, 2018 12:08
[2018-11-02 14:42] VITALS: BP 120/60; PULSE 58; RESP 18
== END 2018-11-02 14:26 | disposition home or self-care (01) | DRG 300 ==
LOC: E/R 17:58 → PP2 10-31 02:00
PROVIDERS: ADMIT Internal Medicine; ATTEND Hospitalist
DX: E11.52 Type 2 diabetes mellitus with diabetic peripheral angiopathy with gangrene (principal); I70.261 Atherosclerosis of native arteries of extremities with gangrene, right leg; L03.031 Cellulitis of right toe; I10 Essential (primary) hypertension; E78.5 Hyperlipidemia, unspecified; Z79.4 Long term (current) use of insulin
CPT/HCPCS: 36415; 73718; 80048; 80053; 80061; 82962; 83036; 83735; 84100; 85025; 85610; 85730; 96374; 96375; J1644; J1815; J2270; J2543; J3370; J7050

== ENCOUNTER 2018-11-08 23:40 | Inpatient (IN) | payer OTHER ==
[~2018-11-08] VITALS: Ht 167.6 cm; Wt 66.0 kg
[~2018-11-08 23:40] MED LIST changes: +ASPI-831 PO; +ATOR20TA38 PO; +BENA20TA4 PO; +CLOP75TA27 PO; +GLIP10TA14 PO; +HYDR4TAB51 PO; +LEVO750T25 PO; +MTF1000T PO; +SITA100T11 PO
[2018-11-09] MEDS ORDERED: HYDROmorphONE 1 MG/ML SYG IV STA (01:58)
--- NOTE | 2018-11-09 02:59 | ERD ---
ER Documentation Chief Complaint Chief Complaint right foot pain/redness/swelling x 3 days HPI 73-year-old male with a history of diabetes, hypertension, and known peripheral arterial disease being managed by Dr. Feliz, presenting with pain in his right big toe. The patient was recently admitted for dry gangrene of the right big t oe and associated cellulitis. He was placed on IV antibiotics with improvement of his cellulitis and discharged on 5 days of Levaquin. After he finished the Levaquin about 2 days ago, he started noticing worsening of the redness of his right foot. He states that he has severe pain that is constant, throbbing, 10 out of 10, not alleviated with the Dilaudid that he was discharged with. His pain seems to be worsening as well. He has an appointment with the vascular physician in about 1 week but states that he cannot wait. He is complaining of pain in his left lower extremity as well with burning pain at the bottom of his left foot. Denies any numbness or tingling in the left lower extremity but has some tingling in the right foot. No weakness. His pain is worsened with ambulation, no alleviating factors. ROS All systems reviewed and are negative except as per history of present illness. Medications Home Meds Active Scripts Levofloxacin* (Levaquin*) 750 Mg Tablet, 750 MG PO DAILY for 5 Days, #5 TAB Prov:MARIANA PAUL S. 11/02/18 Hydromorphone Hcl* (Dilaudid*) 4 Mg Tablet, 4 MG PO Q6H PRN for PAIN, #30 TAB Prov:MARIANA PAUL S. 11/02/18 Acetaminophen* (Tylophen*) 500 Mg Capsule, 1 CAP PO Q6H PRN for PAIN AND OR ELEVATED TEMP, #18 CAP Prov:EVGENY ZUNIGA MD 09/15/16 Reported Medications Sitagliptin* (Januvia*) 100 Mg Tablet, 100 MG PO DAILY, #30 TAB 10/31/18 Glipizide* (Glipizide*) 10 Mg Tablet, 10 MG PO BID, TAB 10/31/18 Benazepril Hcl* (Benazepril Hcl*) 20 Mg Tablet, 20 MG PO DAILY, #30 TAB 10/31/18 Clopidogrel Bisulfate (Clopidogrel) 75 Mg Tablet, 75 MG PO DAILY, #30 TAB 10/31/18 Atorvastatin Calcium* (Atorvastatin Calcium*) 20 Mg Tablet, 1 MG PO QHS, #30 TAB 10/31/18 Aspirin (Aspirin) 81 Mg Chew, 81 MG PO DAILY, TAB.CHEW 10/31/18 Metformin* (Glucophage*) 1,000 Mg Tablet, 1000 MG PO BID, TAB 10/31/18 Discontinued Reported Medications Hydrocodone/Acetaminophen ([place] 10-325 Tablet) 1 Each Tablet, 1 EACH PO Q6, TAB 10/31/18 Allergies Allergies: Coded Allergies: No Known Allergy (Unverified , 10/30/18) PMhx/Soc History of Surgery: Yes (LASER EYE SX 2008, angiogram) Hx Neurological Disorder: No Hx Respiratory Disorders: No Hx Cardiac Disorders: Yes (HTN, 2008) Hx Psychiatric Problems: No Hx Miscellaneous Medical Probl: No Hx Alcohol Use: Yes (OCCASSIONAL DRINKER, LAST DRINK 3 MOS AGO ) Hx Substance Use: No Hx Tobacco Use: No Smoking Status: Never smoker FmHx Family History: diabetes Physical Exam Vitals Vital Signs Date Temp Pulse Resp B/P (MAP) Pulse Ox O2 O2 Flow FiO2 Time Delivery Rate 11/08/18 98.9 92 18 160/66 98 23:51 (97) Physical Exam Const: No acute distress Head: Atraumatic Eyes: Normal Conjunctiva ENT: Normal External Ears, Nose and Mouth. Neck: Full range of motion. Resp: Clear to auscultation bilaterally Cardio: Regular rate and rhythm, no murmurs Abd: Soft, non tender, non distended. Normal bowel sounds Skin: See extremity exam. No other petechiae or rashes Back: No midline or flank tenderness Ext: Unable to palpate DP or PT pulses bilaterally. Right big toe has dry gangrene of the tip of the toe. There is redness that extends from the toe to the midfoot. Cool to palpation with tenderness. Left lower extremity and foot with normal color, warmer to palpation in the right, no erythema or wounds noted. 2+ femoral and popliteal pulses bilaterally. Normal plantar and dorsiflexion bilaterally. Neur: Awake and alert, no facial asymmetry, normal speech, moving all extremities spontaneously. 5 out of 5 strength grossly in bilateral lower extremities. Psych: Normal Mood and Affect Result Diagram: 11/09/1820211/09/18202 Results 24 hrs Laboratory Tests Test 11/09/18 02:03 White Blood Count 9.2 10^3/ul Red Blood Count 4.41 10^6/ul Hemoglobin 11.8 g/dl Hematocrit 35.6 % Mean Corpuscular Volume 80.7 fl Mean Corpuscular Hemoglobin 26.8 pg Mean Corpuscular Hemoglobin Concent 33.1 g/dl Red Cell Distribution Width 12.9 % Platelet Count 169 10^3/UL Mean Platelet Volume 10.3 fl Immature Granulocytes % 0.400 % Neutrophils % 64.5 % Lymphocytes % 21.2 % Monocytes % 7.2 % Eosinophils % 6.4 % Basophils % 0.3 % Nucleated Red Blood Cells % 0.0 /100WBC Immature Granulocytes # 0.040 10^3/ul Neutrophils # 5.9 10^3/ul Lymphocytes # 2.0 10^3/ul Monocytes # 0.7 10^3/ul Eosinophils # 0.6 10^3/ul Basophils # 0.0 10^3/ul Nucleated Red Blood Cells # 0.0 10^3/ul Prothrombin Time 13.2 Sec Prothrombin Time Ratio 1.0 INR International Normalized Ratio 0.99 Activated Partial Thromboplast Time 25.6 Sec Sodium Level 136 mmol/L Potassium Level 4.6 mmol/L Chloride Level 102 mmol/L Carbon Dioxide Level 22 mmol/L Anion Gap 12 Blood Urea Nitrogen 11 mg/dl Creatinine 0.81 mg/dl Est Glomerular Filtrat Rate mL/min mL/min Glucose Level 133 mg/dl Calcium Level 9.4 mg/dl Current Medications Medications Dose Sig/Sheri Start Time Status Last (Trade) Ordered Route PRN Stop Time Admin Dose Reason Admin 1 mg ONCE STAT 11/09/18 DC 11/09/18 Hydromorphone IV 01:58 11/09/18 02:15 HCl 02:01 (Dilaudid) IV Flush 10 ml STK-MED 11/09/18 DC (NS 10 ml) ONCE .ROUTE 03:07 11/09/18 03:08 Sodium 100 ml @ ud STK-MED 11/09/18 DC Chloride ONCE .ROUTE 03:07 11/09/18 03:08 Iohexol 100 ml @ ud STK-MED 11/09/18 DC ONCE .ROUTE 03:07 11/09/18 03:08 Ondansetron 4 mg BRIDGE ORDER 11/09/18 HCl (Zofran PRN IV 05:30 11/10/18 Inj) NAUSEA/VOMITI 05:29 NG 650 mg ER BRIDGE 11/09/18 Acetaminophen PRN PO 05:30 11/10/18 (Tylenol .MILD PAIN 05:29 Tab) 1-3 OR TEMP Procedures/MDM EMERGENT LABS AND DIAGNOSTIC STUDIES: Lab Results above were reviewed and interpreted by me. CBC: Mild anemia. No evidence of infection BMP: No e/o clinically significant electrolyte abnormality severe acidosis, alkalosis, renal failure, diabetic ketoacidosis UA: no evidence of infection. Radiology Results as interpreted by Radiology below were reviewed by Clau Holden MD: CT angiogram right lower extremity: Pending Initial Nursing notes reviewed. Previous Medical Records requested via the Electronic Health Record. EMERGENCY DEPARTMENT COURSE / MEDICAL DECISION MAKING: Patient is presenting with likely chronic right limb ischemia that is not with pain that is not well controlled with home Dilaudid. He is hemodynamically stable. Although his foot is erythematous, I do not think this is due to infection as it is cool to touch. It is more likely secondary to chronic limb ischemia. He is neurovascularly intact on exam. I do not suspect acute critical ischemic limb. However patient will require admission for further work-up and management. A CT angiogram of the right lower extremity has been done and results are pending. I have notified his vascular surgeon of the patient being in the ER and the fact that he is being admitted. He agrees to see the patient. I do not think IV heparin drip is necessary at this time but the patient will likely require some type of intervention in order to alleviate his pain Accepting Care Team: Current data and ongoing care discussed. Time: Time of admission Primary Provider: Dr. Hunt Consulting: Dr. Feliz with vascular surgery Outstanding Data: none Departure Diagnosis: Primary Impression: Ischemia of right lower extremity Additional Impression: Intractable neuropathic pain of right lower extremity Condition: Serious JACQUELINE HOLDEN MD November 09, 2018 02:59
[2018-11-09] MEDS ORDERED: SOD CHLORIDE 0.9% 100 ML ONE (03:07)
[2018-11-09] MEDS ORDERED: IOHEXOL 100 ML ONE (03:07)
[2018-11-09] MEDS ORDERED: ACETAMINOPHEN 325 MG TAB PO PRN ×2 (05:30→07:00)
[2018-11-09] MEDS ORDERED: ONDANSETRON 4 MG INJ IV PRN ×2 (05:30→07:00)
--- NOTE | 2018-11-09 06:31 | HP ---
Date/Time of Note Date/Time of Note DATE: 11/09/18 TIME: 06:21 Assessment/Plan VTE Prophylaxis Pharmacological prophylaxis: heparin Lines/Catheters IV Catheter Type (from Nrsg): Saline Lock Assessment/Plan Assessment/Plan 1. 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 Feliz for angiogram. He is returning back complaining of pain. He finished a 5 days course of Levaquin -Dr. Feliz was notified in the ER 2. Hypertension: Continue home meds. Adjust as needed 3. Type 2 diabetes: Continue metformin and Januvia 4. Normocytic anemia: Likely of chronic disease. -Upon discharge, he will be instructed to follow-up with his PCP for FOBT and to check iron/ferritin 5. PVD: Continue antiplatelet and statin Result Diagram: 11/09/18 0203 11/09/18 0203 Results 24hrs Laboratory Tests Test 11/09/18 02:03 White Blood Count 9.2 # Red Blood Count 4.41 L Hemoglobin 11.8 L Hematocrit 35.6 L Mean Corpuscular Volume 80.7 L Mean Corpuscular Hemoglobin 26.8 L Mean Corpuscular Hemoglobin Concent 33.1 Red Cell Distribution Width 12.9 Platelet Count 169 Mean Platelet Volume 10.3 Immature Granulocytes % 0.400 Neutrophils % 64.5 Lymphocytes % 21.2 Monocytes % 7.2 Eosinophils % 6.4 Basophils % 0.3 Nucleated Red Blood Cells % 0.0 Immature Granulocytes # 0.040 H Neutrophils # 5.9 Lymphocytes # 2.0 Monocytes # 0.7 Eosinophils # 0.6 H Basophils # 0.0 Nucleated Red Blood Cells # 0.0 Prothrombin Time 13.2 Prothrombin Time Ratio 1.0 INR International Normalized Ratio 0.99 Activated Partial Thromboplast Time 25.6 Sodium Level 136 Potassium Level 4.6 Chloride Level 102 Carbon Dioxide Level 22 Anion Gap 12 Blood Urea Nitrogen 11 Creatinine 0.81 Est Glomerular Filtrat Rate mL/min Glucose Level 133 Calcium Level 9.4 HPI/ROS Admit Date/Time Admit Date/Time Hx of Present Illness This is a 73-year-old male with a history of hypertension, type 2 diabetes, PVD, dry gangrene of the right great toe. Patient was just admitted by myself last week for his gangrene with overlying cellulitis. At that time MRI shows Subcutaneous edema and skin ulcer in the first digit, diffuse reactive osteitis in the first distal phalanx with a focus of faint intermediate T1 signal, and early osteomyelitis cannot be completely excluded and diffuse muscle edema and areas of mild atrophy and fatty infiltration likely neuropathic. Patient was managed in consultation with Dr. Feliz. At the time of discharge, plan was for outpatient follow-up and also for angiogram. Patient returned back saying that his pain is not relieved with his pain medication, which includes Dilaudid 4 mg. He finished 5 days course of Le vaquin. He has an appointment with vascular surgeon the following week, but he said he could not wait until then. PMH/Family/Social Past Medical History Past Surgical Hx: other (see hpi) Family History Significant Family History: no pertinent family hx Social History Alcohol Use: heavy (2 beers a day) Smoking Status: Never smoker Drug Use: none Exam Constitutional: other (no acute distress) ENMT: nl external ears & nose Neck: supple, non-tender Respiratory: normal air movement Cardiovascular: nl pulses Gastrointestinal: soft Extremities: normal pulses Medications Current Medications Ondansetron HCl (Zofran Inj) 4 mg BRIDGE ORDER PRN IV NAUSEA/VOMITING; Start 11/09/18 at 05:30; Stop 11/10/18 at 05:29 Acetaminophen (Tylenol Tab) 650 mg ER BRIDGE PRN PO .MILD PAIN 1-3 OR TEMP; Start 11/09/18 at 05:30; Stop 11/10/18 at 05:29 Coded Allergies: No Known Allergy (Unverified , 10/30/18) Social History Smoking Status: Never smoker Exam/Review of Systems Vital Signs Vitals Vital Signs Date Temp Pulse Resp B/P (MAP) Pulse Ox O2 O2 Flow FiO2 Time Delivery Rate 11/08/18 98.9 92 18 160/66 98 23:51 (97) TORRES ALMONTE MD November 09, 2018 06:31
[2018-11-09] MEDS ORDERED: VANCOMYCIN IV PER PHARMACY XX SCH (07:00)
[2018-11-09] MEDS ORDERED: HYDROCODONE/APAP (5/325) TAB PO PRN (07:00)
[2018-11-09] MEDS ORDERED: NACL 0.9% 3 ML SYG IV SCH (07:00)
[2018-11-09] MEDS ORDERED: GLUCOSE GEL 15 GRAM TUBE PO PRN ×2 (08:00)
[2018-11-09] MEDS ORDERED: VANCOMYCIN HCL 1.25 GM in SOD CHLORIDE 0.9% 250 ML IVPB SCH (08:00)
[2018-11-09] MEDS ORDERED: GLUCAGON 1 MG INJ IM PRN (08:00)
[2018-11-09] MEDS ORDERED: DEXTROSE 50% 50 ML SYRINGE IV PRN ×2 (08:00)
[2018-11-09] MEDS ORDERED: GLUCOSE GEL 15 GRAM TUBE BUCCAL PRN (08:00)
[2018-11-09 08:22] VITALS: BP 145/64; PULSE 77; RESP 18
[2018-11-09 08:23] VITALS: BP 145/64; PULSE 77; RESP 18
[2018-11-09] MEDS: KETOROLAC 30 MG INJ IV PRN ×2 (09:33→15:26)
[2018-11-09] MEDS: BENAZEPRIL 20 MG TAB PO SCH (09:35)
[2018-11-09] MEDS: HYDROCODONE/APAP (5/325) TAB PO PRN ×2 (09:36→15:27)
[2018-11-09] MEDS: metFORMIN 500 MG TAB PO SCH ×2 (09:37→17:56)
[2018-11-09] MEDS: LINAGLIPTIN 5 MG TABLET PO SCH (09:37)
[2018-11-09] MEDS: ASPIRIN 81 MG TAB PO SCH (09:37)
[2018-11-09] MEDS: CLOPIDOGREL 75 MG TAB PO SCH (09:38)
[2018-11-09] MEDS: HEPARIN 5,000 UNIT/1 ML VIAL SC SCH ×2 (09:39→21:05)
--- NOTE | 2018-11-09 09:56 | PN ---
Date/Time of Note Date/Time of Note DATE: 11/09/18 TIME: 09:54 Assessment/Plan VTE Prophylaxis SCD applied (from Nsg): Yes Pharmacological prophylaxis: heparin Pharm contraindication: low risk/ambulating Lines/Catheters IV Catheter Type (from Nrsg): Saline Lock Assessment/Plan Problems: (1) Ischemia of right lower extremity Status: Acute Comment: Vascular surgery has been notified of the patient's admission. I will go ahead and give him gabapentin to try and help with the pain but he is going to need vascular intervention to truly help. I doubt that the usage of pentoxifylline or cilostazol will be of assistance here but we can try (2) Peripheral vascular disease due to secondary diabetes Status: Chronic Comment: As per vascular surgery (3) Diabetes mellitus type 2 with complications Status: Chronic Comment: He is actually had relatively good blood sugar control based on the records in the chart. Continue with treatment Qualifiers: Diabetes mellitus shelter insulin use: without terminal superintendent use Qualified Codes: E11.8 - Type 2 diabetes mellitus with unspecified complications (4) Essential hypertension Status: Chronic Comment: Stable control at this time (5) Hyperlipidemia associated with type 2 diabetes mellitus Status: Chronic Comment: Full dose statin therapy (6) Intractable neuropathic pain of right lower extremity Status: Acute Comment: Attempt to relieve pain Result Diagram: 11/09/18 0203 11/09/18 0203 Results 24hrs Laboratory Tests Test 11/09/18 02:03 11/09/18 08:31 White Blood Count 9.2 # Red Blood Count 4.41 L Hemoglobin 11.8 L Hematocrit 35.6 L Mean Corpuscular Volume 80.7 L Mean Corpuscular Hemoglobin 26.8 L Mean Corpuscular Hemoglobin Concent 33.1 Red Cell Distribution Width 12.9 Platelet Count 169 Mean Platelet Volume 10.3 Immature Granulocytes % 0.400 Neutrophils % 64.5 Lymphocytes % 21.2 Monocytes % 7.2 Eosinophils % 6.4 Basophils % 0.3 Nucleated Red Blood Cells % 0.0 Immature Granulocytes # 0.040 H Neutrophils # 5.9 Lymphocytes # 2.0 Monocytes # 0.7 Eosinophils # 0.6 H Basophils # 0.0 Nucleated Red Blood Cells # 0.0 Prothrombin Time 13.2 Prothrombin Time Ratio 1.0 INR International Normalized Ratio 0.99 Activated Partial Thromboplast Time 25.6 Sodium Level 136 Potassium Level 4.6 Chloride Level 102 Carbon Dioxide Level 22 Anion Gap 12 Blood Urea Nitrogen 11 Creatinine 0.81 Est Glomerular Filtrat Rate mL/min Glucose Level 133 Calcium Level 9.4 Bedside Glucose 75 Subjective 24 Hr Interval Summary Free Text/Dictation Patient is complaining of pain in the right great toe and distal right medial foot. Constitutional: no complaints (No fevers chills or sweats) Respiratory: no complaints Cardiovascular: no complaints Gastrointestinal: no complaints Genitourinary: no complaints Exam/Review of Systems Exam Vitals Vital Signs Date Temp Pulse Resp B/P (MAP) Pulse Ox O2 O2 Flow FiO2 Time Delivery Rate 11/09/18 98.2 77 18 145/64 98 Room Air 08:23 (91) Constitutional: alert, oriented Neck: supple, non-tender Respiratory: clear to auscultation, normal air movement Cardiovascular: regular rate and rhythm, nl pulses Gastrointestinal: soft, nl liver, spleen, non-tender Extremities: other (Right great toe with gangrenous tip, and cool to the touch) Results Results 24hrs Laboratory Tests Test 11/09/18 02:03 11/09/18 08:31 White Blood Count 9.2 # Red Blood Count 4.41 L Hemoglobin 11.8 L Hematocrit 35.6 L Mean Corpuscular Volume 80.7 L Mean Corpuscular Hemoglobin 26.8 L Mean Corpuscular Hemoglobin Concent 33.1 Red Cell Distribution Width 12.9 Platelet Count 169 Mean Platelet Volume 10.3 Immature Granulocytes % 0.400 Neutrophils % 64.5 Lymphocytes % 21.2 Monocytes % 7.2 Eosinophils % 6.4 Basophils % 0.3 Nucleated Red Blood Cells % 0.0 Immature Granulocytes # 0.040 H Neutrophils # 5.9 Lymphocytes # 2.0 Monocytes # 0.7 Eosinophils # 0.6 H Basophils # 0.0 Nucleated Red Blood Cells # 0.0 Prothrombin Time 13.2 Prothrombin Time Ratio 1.0 INR International Normalized Ratio 0.99 Activated Partial Thromboplast Time 25.6 Sodium Level 136 Potassium Level 4.6 Chloride Level 102 Carbon Dioxide Level 22 Anion Gap 12 Blood Urea Nitrogen 11 Creatinine 0.81 Est Glomerular Filtrat Rate mL/min Glucose Level 133 Calcium Level 9.4 Bedside Glucose 75 Medications Medication Current Medications IV Flush (NS 3 ml) 3 ml PER PROTOCOL IV ; Start 11/09/18 at 07:00 Ondansetron HCl (Zofran Inj) 4 mg Q6H PRN IV NAUSEA/VOMITING; Start 11/09/18 at 07:00 Acetaminophen (Tylenol Tab) 650 mg Q6H PRN PO .PAIN 1-3 OR TEMP; Start 11/09/18 at 07:00 Acetaminophen/ Hydrocodone Bitart ([place] (5/325)) 1 tab Q6H PRN PO .MOD PAIN 4- 6; Start 11/09/18 at 07:00 Acetaminophen/ Hydrocodone Bitart ([place] (5/325)) 2 tab Q6H PRN PO .SEVERE PAIN 7-10 Last administered on 11/09/18 09:36; Admin Dose 2 TAB; Start 11/09/18 at 07:00 Heparin Sodium (Porcine) (Heparin (5000 Units/1ml)) 5,000 unit Q12 SC Last administered on 11/09/18 09:39; Admin Dose 5,000 UNIT; Start 11/09/18 at 09:00 Ketorolac Tromethamine (Toradol) 30 mg Q6H PRN IV pain Last administered on 11/09/18 09:33; Admin Dose 30 MG; Start 11/09/18 at 07:00; Stop 11/12/18 at 06:59 Vancomycin HCl (Vanco Iv Per Pharmacy) VANCOMYCIN PER PHARMACY PER PROTOCOL XX ; Start 11/09/18 at 07:00 Aspirin (Aspirin) 81 mg DAILY PO Last administered on 11/09/18 09:37; Admin Dose 81 MG; Start 11/09/18 at 09:00 Atorvastatin Calcium (Lipitor) 20 mg QHS PO ; Start 11/09/18 at 21:00 Benazepril HCl (Lotensin) 20 mg DAILY PO Last administered on 11/09/18 09:35; Admin Dose 20 MG; Start 11/09/18 at 09:00 Clopidogrel Bisulfate (plaVIX) 75 mg DAILY PO Last administered on 11/09/18 09:38; Admin Dose 75 MG; Start 11/09/18 at 09:00 Metformin HCl (Glucophage) 1,000 mg BID WITH MEALS PO Last administered on 11/09 09:37; Admin Dose 1,000 MG; Start 11/09/18 at 08:00 Linagliptin (Tradjenta) 5 mg DAILY PO Last administered on 11/09/18 09:37; Admin Dose 5 MG; Start 11/09/18 at 09:00 Vancomycin HCl 1.25 gm/Sodium Chloride 250 ml @ 83.333 mls/ hr ONCE IVPB ; Start 11/09/18 at 08:00; Stop 11/09/18 at 10:59 Miscellaneous Information 1 ea NOTE XX ; Start 11/09/18 at 08:00 Glucose (Glutose) 15 gm Q15M PRN PO DECREASED GLUCOSE; Start 11/09/18 at 08:00 Glucose (Glutose) 22.5 gm Q15M PRN PO DECREASED GLUCOSE; Start 11/09/18 at 08:00 Dextrose (D50w Syringe) 25 ml Q15M PRN IV DECREASED GLUCOSE; Start 11/09/18 at 08:00 Dextrose (D50w Syringe) 50 ml Q15M PRN IV DECREASED GLUCOSE; Start 11/09/18 at 08:00 Glucagon (Glucagen) 1 mg Q15M PRN IM DECREASED GLUCOSE; Start 11/09/18 at 08:00 Glucose (Glutose) 15 gm Q15M PRN BUCCAL DECREASED GLUCOSE; Start 11/09/18 at 08:00 GLORIA NAVA MD November 09, 2018 09:56
[2018-11-09] MEDS: CILOSTAZOL 100 MG TAB PO SCH ×2 (11:53→21:03)
[2018-11-09] MEDS: PENTOXIFYLLINE (SR) 400 MG TAB PO SCH ×2 (13:51→21:03)
[2018-11-09] MEDS: ACCU-CHEK XX SCH ×3 (13:52→20:55)
[2018-11-09 15:03] VITALS: BP 138/72; PULSE 68; RESP 18
[2018-11-09 15:12] VITALS: Ht 167.6 cm; Wt 66.0 kg
[2018-11-09 19:56] VITALS: BP 138/60; PULSE 64; RESP 18
[2018-11-09] MEDS ORDERED: ATORVASTATIN 20 MG TAB PO SCH (21:00)
[2018-11-09] MEDS: ATORVASTATIN 80 MG TAB PO SCH (21:02)
[2018-11-09] MEDS: ACETYLCYSTEINE 600 MG CAP PO SCH (21:02)
[2018-11-09] MEDS: VANCOMYCIN 500 MG (PMX) 100 ML IVPB SCH (23:09)
[2018-11-10 01:44] VITALS: BP 118/57; PULSE 78; RESP 18
[2018-11-10] MEDS: VANCOMYCIN 500 MG (PMX) 100 ML IVPB SCH ×2 (07:31→19:03)
[2018-11-10 08:02] VITALS: BP 119/56; PULSE 91; RESP 18
[2018-11-10] MEDS: ACCU-CHEK XX SCH ×6 (08:36→20:58)
[2018-11-10] MEDS: HEPARIN 5,000 UNIT/1 ML VIAL SC SCH ×2 (08:38→21:02)
[2018-11-10] MEDS: metFORMIN 500 MG TAB PO SCH (08:39)
[2018-11-10] MEDS: ACETYLCYSTEINE 600 MG CAP PO SCH ×2 (08:41→20:59)
[2018-11-10] MEDS: CLOPIDOGREL 75 MG TAB PO SCH (08:41)
[2018-11-10] MEDS: ASPIRIN 81 MG TAB PO SCH (08:42)
[2018-11-10] MEDS: PENTOXIFYLLINE (SR) 400 MG TAB PO SCH ×3 (08:42→20:59)
[2018-11-10] MEDS: CILOSTAZOL 100 MG TAB PO SCH ×2 (08:42→20:59)
[2018-11-10] MEDS: LINAGLIPTIN 5 MG TABLET PO SCH (08:43)
[2018-11-10] MEDS: BENAZEPRIL 20 MG TAB PO SCH (08:43)
--- NOTE | 2018-11-10 10:22 | PN ---
Date/Time of Note Date/Time of Note DATE: 11/10/18 TIME: 10:19 Assessment/Plan VTE Prophylaxis Risk score (from Nsg)>0 risk: 4 SCD applied (from Nsg): Yes Pharmacological prophylaxis: heparin Lines/Catheters IV Catheter Type (from Nrsg): Saline Lock Assessment/Plan Hospital Course Subjective: no new issues, continues to have severe pain in R foot Objective: Constitutional: alert, oriented Head: atraumatic, normocephalic Neck: non-tender, supple Respiratory: clear to auscultation Cardiovascular: regular rate and rhythm Gastrointestinal: S/ NT / ND / +BS Extremities: Right foot ischemia with nonhealing ulcer to right 1st toe tip and rest pain. assessment and plan: 1. 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 Feliz for angiogram. He is returning back complaining of pain. He finished a 5 days course of Levaquin 2. Hypertension: Continue home meds. Adjust as needed 3. Type 2 diabetes: Continue metformin and Januvia 4. Normocytic anemia: Likely of chronic disease. 5. PVD: Continue antiplatelet and statin Dispo: Patient is still awaiting both podiatry as well as vascular surgery review. Will ensure that they are aware of patient's presence in the hospital. In the interim continue current regimen abx, wound care and pain control . If patient is to get angiogram, will need to be transitioned from oral hyp oglycemics Result Diagram: 11/10/18 0426 11/10/18 0426 Results 24hrs Laboratory Tests Test 11/09/18 13:57 11/09/18 21:00 11/10/18 04:26 11/10/18 08:36 Bedside Glucose 80 96 159 White Blood Count 8.4 Red Blood Count 4.09 L Hemoglobin 10.9 L Hematocrit 32.9 L Mean Corpuscular Volume 80.4 L Mean Corpuscular 26.7 L Hemoglobin Mean Corpuscular 33.1 Hemoglobin Concent Red Cell Distribution 13.1 Width Platelet Count 160 Mean Platelet Volume 11.0 H Immature Granulocytes % 0.500 H Neutrophils % 61.2 Lymphocytes % 22.2 Monocytes % 6.6 Eosinophils % 9.0 H Basophils % 0.5 Nucleated Red Blood 0.0 Cells % Immature Granulocytes # 0.040 H Neutrophils # 5.1 Lymphocytes # 1.9 Monocytes # 0.6 Eosinophils # 0.8 H Basophils # 0.0 Nucleated Red Blood 0.0 Cells # Sodium Level 132 L Potassium Level 4.3 Chloride Level 100 Carbon Dioxide Level 21 Anion Gap 11 Blood Urea Nitrogen 14 Creatinine 0.66 Est Glomerular Filtrat Rate mL/min Glucose Level 132 Hemoglobin A1c 6.7 H Calcium Level 8.9 Phosphorus Level 4.4 Magnesium Level 1.5 L Total Bilirubin 0.3 Direct Bilirubin 0.00 Indirect Bilirubin 0.3 Aspartate Amino 21 Transf (AST/SGOT) Alanine 27 Aminotransferase (ALT/SG PT) Alkaline Phosphatase 72 Total Protein 6.2 Albumin 3.3 Globulin 2.90 Albumin/Globulin Ratio 1.13 Exam/Review of Systems Exam Vitals Vital Signs Date Temp Pulse Resp B/P (MAP) Pulse Ox O2 O2 Flow FiO2 Time Delivery Rate 11/10/18 91 18 119/56 99 Room Air 08:02 (77) 11/10/18 97.9 01:44 Intake and Output 11/09/18 11/09/18 11/10/18 1414:59 22:59 06:59 IntakeIntake Total 970 ml 360 ml 0 ml OutputOutput Total 450 ml BalanceBalance 970 ml -90 ml 0 ml Results Results 24hrs Laboratory Tests Test 11/09/18 13:57 11/09/18 21:00 11/10/18 04:26 11/10/18 08:36 Bedside Glucose 80 96 159 White Blood Count 8.4 Red Blood Count 4.09 L Hemoglobin 10.9 L Hematocrit 32.9 L Mean Corpuscular Volume 80.4 L Mean Corpuscular 26.7 L Hemoglobin Mean Corpuscular 33.1 Hemoglobin Concent Red Cell Distribution 13.1 Width Platelet Count 160 Mean Platelet Volume 11.0 H Immature Granulocytes % 0.500 H Neutrophils % 61.2 Lymphocytes % 22.2 Monocytes % 6.6 Eosinophils % 9.0 H Basophils % 0.5 Nucleated Red Blood 0.0 Cells % Immature Granulocytes # 0.040 H Neutrophils # 5.1 Lymphocytes # 1.9 Monocytes # 0.6 Eosinophils # 0.8 H Basophils # 0.0 Nucleated Red Blood 0.0 Cells # Sodium Level 132 L Potassium Level 4.3 Chloride Level 100 Carbon Dioxide Level 21 Anion Gap 11 Blood Urea Nitrogen 14 Creatinine 0.66 Est Glomerular Filtrat Rate mL/min Glucose Level 132 Hemoglobin A1c 6.7 H Calcium Level 8.9 Phosphorus Level 4.4 Magnesium Level 1.5 L Total Bilirubin 0.3 Direct Bilirubin 0.00 Indirect Bilirubin 0.3 Aspartate Amino 21 Transf (AST/SGOT) Alanine 27 Aminotransferase (ALT/SG PT) Alkaline Phosphatase 72 Total Protein 6.2 Albumin 3.3 Globulin 2.90 Albumin/Globulin Ratio 1.13 Medications Medication Current Medications IV Flush (NS 3 ml) 3 ml PER PROTOCOL IV ; Start 11/09/18 at 07:00 Ondansetron HCl (Zofran Inj) 4 mg Q6H PRN IV NAUSEA/VOMITING; Start 11/09/18 at 07:00 Acetaminophen (Tylenol Tab) 650 mg Q6H PRN PO .PAIN 1-3 OR TEMP Last administered on 11/10/18at 09:00; Admin Dose 650 MG; Start 11/09/18 at 07:00 Acetaminophen/ Hydrocodone Bitart ([place] (5/325)) 1 tab Q6H PRN PO .MOD PAIN 4- 6; Start 11/09/18 at 07:00 Acetaminophen/ Hydrocodone Bitart ([place] (5/325)) 2 tab Q6H PRN PO .SEVERE PAIN 7-10 Last administered on 11/09/18at 15:27; Admin Dose 2 TAB; Start 11/09/18 at 07:00 Heparin Sodium (Porcine) (Heparin (5000 Units/1ml)) 5,000 unit Q12 SC Last administered on 11/10/18at 08:38; Admin Dose 5,000 UNIT; Start 11/09/18 at 09:00 Ketorolac Tromethamine (Toradol) 30 mg Q6H PRN IV pain Last administered on 11/09/18at 15:26; Admin Dose 30 MG; Start 11/09/18 at 07:00; Stop 11/12/18 at 06:59 Vancomycin HCl (Vanco Iv Per Pharmacy) VANCOMYCIN PER PHARMACY PER PROTOCOL XX ; Start 11/09/18 at 07:00 Aspirin (Aspirin) 81 mg DAILY PO Last administered on 11/10/18 08:42; Admin Dose 81 MG; Start 11/09/18 at 09:00 Benazepril HCl (Lotensin) 20 mg DAILY PO Last administered on 11/10/18at 08:43; Admin Dose 20 MG; Start 11/09/18 at 09:00 Clopidogrel Bisulfate (plaVIX) 75 mg DAILY PO Last administered on 11/10/18 08:41; Admin Dose 75 MG; Start 11/09/18 at 09:00 Metformin HCl (Glucophage) 1,000 mg BID WITH MEALS PO Last administered on 11/10/18at 08:39; Admin Dose 1,000 MG; Start 11/09/18 at 08:00 Linagliptin (Tradjenta) 5 mg DAILY PO Last administered on 11/10/18at 08:43; Admin Dose 5 MG; Start 11/09/18 at 09:00 Miscellaneous Information 1 ea NOTE XX ; Start 11/09/18 at 08:00 Glucose (Glutose) 15 gm Q15M PRN PO DECREASED GLUCOSE; Start 11/09/18 at 08:00 Glucose (Glutose) 22.5 gm Q15M PRN PO DECREASED GLUCOSE; Start 11/09/18 at 08:00 Dextrose (D50w Syringe) 25 ml Q15M PRN IV DECREASED GLUCOSE; Start 11/09/18 at 08:00 Dextrose (D50w Syringe) 50 ml Q15M PRN IV DECREASED GLUCOSE; Start 11/09/18 at 08:00 Glucagon (Glucagen) 1 mg Q15M PRN IM DECREASED GLUCOSE; Start 11/09/18 at 08:00 Glucose (Glutose) 15 gm Q15M PRN BUCCAL DECREASED GLUCOSE; Start 11/09/18 at 08:00 Acetylcysteine (Nac) 1,200 mg BID PO Last administered on 11/10/18at 08:41; Admin Dose 1,200 MG; Start 11/09/18 at 21:00; Stop 11/13/18 at 20:59 Atorvastatin Calcium (Lipitor) 80 mg QHS PO Last administered on 11/09/18at 21:02; Admin Dose 80 MG; Start 11/09/18 at 21:00 Cilostazol (Pletal) 100 mg BID PO Last administered on 11/10/18at 08:42; Admin Dose 100 MG; Start 11/09/18 at 11:30 Pentoxifylline (Trental) 400 mg TID PO Last administered on 11/10/18at 08:42; Admin Dose 400 MG; Start 11/09/18 at 13:00 Vancomycin HCl 100 ml @ 100 mls/hr Q12H IVPB Last administered on 11/10/18 07:31; Admin Dose 100 MLS/HR; Start 11/09/18 at 23:00 Diagnostic Test (Pha) (Accu-Chek) 1 ea AC MEALS XX Last administered on 11/10/18 08:36; Admin Dose 1 EA; Start 11/09/18 at 17:25 Diagnostic Test (Pha) (Accu-Chek) 1 ea 2 HOURS AFTER MEALS XX Last administered on 11/09/18 20:55; Admin Dose 1 EA; Start 11/09/18 at 13:40 BRENT JACKSON November 10, 2018 10:22
--- NOTE | 2018-11-10 12:15 | CONS ---
Assessment/Plan Assessment/Plan Assessment/Plan (Daily) Dry gangrene right hallux Cellulitis right foot DM2 with peripheral neuropathy PAD Plan Discussed case with Dr. Feliz and stated that he will need repeat angiogram. Not advised for any debridements at this time. Recommend daily betadine with dry sterile dressings to the right hallux. Recommend surgical shoe during ambulation. Offload heels while resting in bed. Continue with IV abx. Consultation Date/Type/Reason Admit Date/Time Date/Time of Note DATE: 11/10/18 TIME: 12:12 Hx of Present Illness 73 y/o M patient presents to the floor with right distal gangrene of great toe. Patient states it's been present for nearly two months and had noticed redness around the toe. He notices aches and pains to the area. Patient had previous vascular work up done and was noted to have decreased blood flow to the lower extremities. Patient denies f/c/n/v no chest pains or shortness of breath. ROS Negative except for HPI Past Medical History hypertension, type 2 diabetes, dyslipidemia Home Meds Active Scripts Levofloxacin* (Levaquin*) 750 Mg Tablet, 750 MG PO DAILY for 5 Days, #5 TAB Prov:KIRBY PAULP S. 11/02/18 Hydromorphone Hcl* (Dilaudid*) 4 Mg Tablet, 4 MG PO Q6H PRN for PAIN, #30 TAB Prov:RAAMAMARIANA S. 11/02/18 Acetaminophen* (Tylophen*) 500 Mg Capsule, 1 CAP PO Q6H PRN for PAIN AND OR ELEVATED TEMP, #18 CAP Prov:EVGENY ZUNIGA MD 09/15/16 Reported Medications Sitagliptin* (Januvia*) 100 Mg Tablet, 100 MG PO DAILY, #30 TAB 10/31/18 Glipizide* (Glipizide*) 10 Mg Tablet, 10 MG PO BID, TAB 10/31/18 Benazepril Hcl* (Benazepril Hcl*) 20 Mg Tablet, 20 MG PO DAILY, #30 TAB 10/31/18 Clopidogrel Bisulfate (Clopidogrel) 75 Mg Tablet, 75 MG PO DAILY, #30 TAB 10/31/18 Atorvastatin Calcium* (Atorvastatin Calcium*) 20 Mg Tablet, 1 MG PO QHS, #30 TAB 10/31/18 Aspirin (Aspirin) 81 Mg Chew, 81 MG PO DAILY, TAB.CHEW 10/31/18 Metformin* (Glucophage*) 1,000 Mg Tablet, 1000 MG PO BID, TAB 10/31/18 Medications Current Medications IV Flush (NS 3 ml) 3 ml PER PROTOCOL IV ; Start 11/09/18 at 07:00 Ondansetron HCl (Zofran Inj) 4 mg Q6H PRN IV NAUSEA/VOMITING; Start 11/09/18 at 07:00 Acetaminophen (Tylenol Tab) 650 mg Q6H PRN PO .PAIN 1-3 OR TEMP Last administered on 11/10/18 09:00; Admin Dose 650 MG; Start 11/09/18 at 07:00 Acetaminophen/ Hydrocodone Bitart ([place] (5/325)) 1 tab Q6H PRN PO .MOD PAIN 4- 6; Start 11/09/18 at 07:00 Acetaminophen/ Hydrocodone Bitart ([place] (5/325)) 2 tab Q6H PRN PO .SEVERE PAIN 7-10 Last administered on 11/09/18at 15:27; Admin Dose 2 TAB; Start 11/09/18 at 07:00 Heparin Sodium (Porcine) (Heparin (5000 Units/1ml)) 5,000 unit Q12 SC Last administered on 11/10/18at 08:38; Admin Dose 5,000 UNIT; Start 11/09/18 at 09:00 Ketorolac Tromethamine (Toradol) 30 mg Q6H PRN IV pain Last administered on 11/09/18 15:26; Admin Dose 30 MG; Start 11/09/18 at 07:00; Stop 11/12/18 at 06:59 Vancomycin HCl (Vanco Iv Per Pharmacy) VANCOMYCIN PER PHARMACY PER PROTOCOL XX ; Start 11/09/18 at 07:00 Aspirin (Aspirin) 81 mg DAILY PO Last administered on 11/10/18 08:42; Admin Dose 81 MG; Start 11/09/18 at 09:00 Benazepril HCl (Lotensin) 20 mg DAILY PO Last administered on 11/10/18 08:43; Admin Dose 20 MG; Start 11/09/18 at 09:00 Clopidogrel Bisulfate (plaVIX) 75 mg DAILY PO Last administered on 11/10/18at 08:41; Admin Dose 75 MG; Start 11/09/18 at 09:00 Metformin HCl (Glucophage) 1,000 mg BID WITH MEALS PO Last administered on 11/10/18 08:39; Admin Dose 1,000 MG; Start 11/09/18 at 08:00 Linagliptin (Tradjenta) 5 mg DAILY PO Last administered on 11/10/18at 08:43; Admin Dose 5 MG; Start 11/09/18 at 09:00 Miscellaneous Information 1 ea NOTE XX ; Start 11/09/18 at 08:00 Glucose (Glutose) 15 gm Q15M PRN PO DECREASED GLUCOSE; Start 11/09/18 at 08:00 Glucose (Glutose) 22.5 gm Q15M PRN PO DECREASED GLUCOSE; Start 11/09/18 at 08:00 Dextrose (D50w Syringe) 25 ml Q15M PRN IV DECREASED GLUCOSE; Start 11/09/18 at 08:00 Dextrose (D50w Syringe) 50 ml Q15M PRN IV DECREASED GLUCOSE; Start 11/09/18 at 08:00 Glucagon (Glucagen) 1 mg Q15M PRN IM DECREASED GLUCOSE; Start 11/09/18 at 08:00 Glucose (Glutose) 15 gm Q15M PRN BUCCAL DECREASED GLUCOSE; Start 11/09/18 at 08:00 Acetylcysteine (Nac) 1,200 mg BID PO Last administered on 11/10/18at 08:41; Admin Dose 1,200 MG; Start 11/09/18 at 21:00; Stop 11/13/18 at 20:59 Atorvastatin Calcium (Lipitor) 80 mg QHS PO Last administered on 11/09/18at 21:02; Admin Dose 80 MG; Start 11/09/18 at 21:00 Cilostazol (Pletal) 100 mg BID PO Last administered on 11/10/18 08:42; Admin Dose 100 MG; Start 11/09/18 at 11:30 Pentoxifylline (Trental) 400 mg TID PO Last administered on 11/10/18 08:42; Admin Dose 400 MG; Start 11/09/18 at 13:00 Diagnostic Test (Pha) (Accu-Chek) 1 ea AC MEALS XX Last administered on 11/10/18at 08:36; Admin Dose 1 EA; Start 11/09/18 at 17:25 Diagnostic Test (Pha) (Accu-Chek) 1 ea 2 HOURS AFTER MEALS XX Last administered on 11/10/18at 10:59; Admin Dose 1 EA; Start 11/09/18 at 13:40 Vancomycin HCl 100 ml @ 100 mls/hr Q12H IVPB ; Start 11/10/18 at 19:30 Allergies: Coded Allergies: No Known Allergy (Unverified , 10/30/18) Past Surgical History Previous angiogram Family History Significant Family History: no pertinent family hx Social History Smoking Status: Never smoker Exam/Review of Systems Exam Vitals Vital Signs Date Temp Pulse Resp B/P (MAP) Pulse Ox O2 O2 Flow FiO2 Time Delivery Rate 11/10/18 91 18 119/56 99 Room Air 08:02 (77) 11/10/18 97.9 01:44 Intake and Output 11/09/18 11/09/18 11/10/18 1515:00 23:00 07:00 IntakeIntake Total 970 ml 360 ml 0 ml OutputOutput Total 450 ml BalanceBalance 970 ml -90 ml 0 ml Exam Non palpable pedal pulses Skin temperature gradient warm to cool Erythema at the hallux site of the right foot Dry gangrene to the distal tip of hallux 1.5 x 1.5cm indeterminate depth. Absent protective sensations mild pain on palpation to the hallux Muscle strength 5/5 in all compartments of the foot. Lower extremity CTA IMPRESSION: Atherosclerotic change throughout the pelvic and right lower extremity vasculature. Short segment moderate stenosis with thrombus in the proximal popliteal artery. Possible lack of flow in the anterior tibial artery beginning just above the ankle and posterior tibial artery beginning at the level of the midcalf but delayed imaging was not obtained. Follow-up CT angiography study including delayed images or MR angiography including TRICKS sequence or conventional angiography could be obtained to better evaluate the distal vasculature if desired. Results Result Diagram: 11/10/18 0426 11/10/18 0426 Results 24hrs Laboratory Tests Test 11/09/18 13:57 11/09/18 21:00 11/10/18 04:26 11/10/18 08:36 Bedside Glucose 80 96 159 White Blood Count 8.4 Red Blood Count 4.09 L Hemoglobin 10.9 L Hematocrit 32.9 L Mean Corpuscular Volume 80.4 L Mean Corpuscular 26.7 L Hemoglobin Mean Corpuscular 33.1 Hemoglobin Concent Red Cell Distribution 13.1 Width Platelet Count 160 Mean Platelet Volume 11.0 H Immature Granulocytes % 0.500 H Neutrophils % 61.2 Lymphocytes % 22.2 Monocytes % 6.6 Eosinophils % 9.0 H Basophils % 0.5 Nucleated Red Blood 0.0 Cells % Immature Granulocytes # 0.040 H Neutrophils # 5.1 Lymphocytes # 1.9 Monocytes # 0.6 Eosinophils # 0.8 H Basophils # 0.0 Nucleated Red Blood 0.0 Cells # Sodium Level 132 L Potassium Level 4.3 Chloride Level 100 Carbon Dioxide Level 21 Anion Gap 11 Blood Urea Nitrogen 14 Creatinine 0.66 Est Glomerular Filtrat Rate mL/min Glucose Level 132 Hemoglobin A1c 6.7 H Calcium Level 8.9 Phosphorus Level 4.4 Magnesium Level 1.5 L Total Bilirubin 0.3 Direct Bilirubin 0.00 Indirect Bilirubin 0.3 Aspartate Amino 21 Transf (AST/SGOT) Alanine 27 Aminotransferase (ALT/SG PT) Alkaline Phosphatase 72 Total Protein 6.2 Albumin 3.3 Globulin 2.90 Albumin/Globulin Ratio 1.13 Test 11/10/18 10:55 Bedside Glucose 179 Medications Medication Current Medications IV Flush (NS 3 ml) 3 ml PER PROTOCOL IV ; Start 11/09/18 at 07:00 Ondansetron HCl (Zofran Inj) 4 mg Q6H PRN IV NAUSEA/VOMITING; Start 11/09/18 at 07:00 Acetaminophen (Tylenol Tab) 650 mg Q6H PRN PO .PAIN 1-3 OR TEMP Last administered on 11/10/18at 09:00; Admin Dose 650 MG; Start 11/09/18 at 07:00 Acetaminophen/ Hydrocodone Bitart ([place] (5/325)) 1 tab Q6H PRN PO .MOD PAIN 4- 6; Start 11/09/18 at 07:00 Acetaminophen/ Hydrocodone Bitart ([place] (5/325)) 2 tab Q6H PRN PO .SEVERE PAIN 7-10 Last administered on 11/09/18at 15:27; Admin Dose 2 TAB; Start 11/09/18 at 07:00 Heparin Sodium (Porcine) (Heparin (5000 Units/1ml)) 5,000 unit Q12 SC Last administered on 11/10/18at 08:38; Admin Dose 5,000 UNIT; Start 11/09/18 at 09:00 Ketorolac Tromethamine (Toradol) 30 mg Q6H PRN IV pain Last administered on 11/09/18at 15:26; Admin Dose 30 MG; Start 11/09/18 at 07:00; Stop 11/12/18 at 06:59 Vancomycin HCl (Vanco Iv Per Pharmacy) VANCOMYCIN PER PHARMACY PER PROTOCOL XX ; Start 11/09/18 at 07:00 Aspirin (Aspirin) 81 mg DAILY PO Last administered on 11/10/18at 08:42; Admin Dose 81 MG; Start 11/09/18 at 09:00 Benazepril HCl (Lotensin) 20 mg DAILY PO Last administered on 11/10/18at 08:43; Admin Dose 20 MG; Start 11/09/18 at 09:00 Clopidogrel Bisulfate (plaVIX) 75 mg DAILY PO Last administered on 11/10/18at 08:41; Admin Dose 75 MG; Start 11/09/18 at 09:00 Metformin HCl (Glucophage) 1,000 mg BID WITH MEALS PO Last administered on 11/10/18at 08:39; Admin Dose 1,000 MG; Start 11/09/18 at 08:00 Linagliptin (Tradjenta) 5 mg DAILY PO Last administered on 11/10/18at 08:43; Admin Dose 5 MG; Start 11/09/18 at 09:00 Miscellaneous Information 1 ea NOTE XX ; Start 11/09/18 at 08:00 Glucose (Glutose) 15 gm Q15M PRN PO DECREASED GLUCOSE; Start 11/09/18 at 08:00 Glucose (Glutose) 22.5 gm Q15M PRN PO DECREASED GLUCOSE; Start 11/09/18 at 08:00 Dextrose (D50w Syringe) 25 ml Q15M PRN IV DECREASED GLUCOSE; Start 11/09/18 at 08:00 Dextrose (D50w Syringe) 50 ml Q15M PRN IV DECREASED GLUCOSE; Start 11/09/18 at 08:00 Glucagon (Glucagen) 1 mg Q15M PRN IM DECREASED GLUCOSE; Start 11/09/18 at 08:00 Glucose (Glutose) 15 gm Q15M PRN BUCCAL DECREASED GLUCOSE; Start 11/09/18 at 08:00 Acetylcysteine (Nac) 1,200 mg BID PO Last administered on 11/10/18at 08:41; Admin Dose 1,200 MG; Start 11/09/18 at 21:00; Stop 11/13/18 at 20:59 Atorvastatin Calcium (Lipitor) 80 mg QHS PO Last administered on 11/09/18 21:02; Admin Dose 80 MG; Start 11/09/18 at 21:00 Cilostazol (Pletal) 100 mg BID PO Last administered on 11/10/18 08:42; Admin Dose 100 MG; Start 11/09/18 at 11:30 Pentoxifylline (Trental) 400 mg TID PO Last administered on 11/10/18 08:42; Admin Dose 400 MG; Start 11/09/18 at 13:00 Diagnostic Test (Pha) (Accu-Chek) 1 ea AC MEALS XX Last administered on 11/10/18 08:36; Admin Dose 1 EA; Start 11/09/18 at 17:25 Diagnostic Test (Pha) (Accu-Chek) 1 ea 2 HOURS AFTER MEALS XX Last administered on 11/10/18at 10:59; Admin Dose 1 EA; Start 11/09/18 at 13:40 Vancomycin HCl 100 ml @ 100 mls/hr Q12H IVPB ; Start 11/10/18 at 19:30 JESUS RAMÍREZ DPKim November 10, 2018 12:15
--- NOTE | 2018-11-10 14:08 | CONS ---
DATE OF ADMISSION: 11/09/2018 DATE OF CONSULTATION: 11/10/2018 TYPE OF CONSULTATION: Vascular. REFERRING PHYSICIAN: Jeremi Bal MD REASON FOR CONSULTATION: Vascular evaluation of ischemic right foot with chronic nonhealing ulcer of the tip of 1st toe. HISTORY OF PRESENT ILLNESS: This is a 73-year-old hypertensive, diabetic gentleman with peripheral a rterial disease. He has had an ulcer at the tip of the right 1st toe for several months. I spoke to Dr. Feliz. He has one of my partners who has been seeing him as an outpatient. He did an arteriogr am of the right lower extremity just a few weeks ago and essentially there is no runoff. He angiopla stied anterior tibial artery, but there are really no pedal vessels. He saw Dr. Feliz last week and it sounds like he was actually improving but since then he has had recurrent severe pain in the right 1st toe and is basically not able to walk on it because of severe pain. He came back to the emergen cy room here for further evaluation. PAST MEDICAL HISTORY: Again is significant for diabetes, hypertension, peripheral arterial disease. MEDICATIONS: Consist of: 1. Vancomycin. 2. Lipitor. 3. Mucomyst. 4. Trental. 5. Pletal. 6. Subcutaneous heparin. 7. Aspirin. 8. Lotensin. 9. Plavix. 10. Tradjenta. 11. Glucophage. ALLERGIES: HE HAS NO KNOWN DRUG ALLERGIES. SOCIAL HISTORY: He is a nonsmoker. FAMILY HISTORY: Noncontributory. REVIEW OF SYSTEMS: He says the foot is better than when he came in. He says toes are kind of throbb ing. When he came back to the emergency room yesterday, he was in severe pain in the 1st toe which h as gotten a little better. He has no chest pain, no shortness of breath, no nausea, vomiting, diarrh ea. No fever, no chills, no recent weight gain or weight loss. PHYSICAL EXAMINATION GENERAL: He is an elderly gentleman. He speaks mostly [place] but the nurse translated for me. VITAL SIGNS: He has been afebrile. His blood pressure is 119/56, heart rate is 91, respiratory rate is 18, he is 99% sat on room air. PERIPHERAL VASCULAR: He has 2+ carotid, radial and brachial pulses bilaterally. LUNGS: Clear. HEART: Regular rate and rhythm. ABDOMEN: Soft, nontender, nondistended. EXTREMITIES: He has 2+ femoral and popliteal pulses bilaterally. I do not feel pedal pulses on eith er foot. Left foot, however, is warm and there are no ulcerations, no discoloration. On the right, the 1st toe is clearly ischemic. There is a dry eschar at the tip of the 1st toe with is pale, some ischemic looking tissue around it. He has got some ischemic dermatitis over the forefoot as well. I t is very tender. There is a palpable popliteal pulse. DIAGNOSTIC DATA: He had a CT angiogram done yesterday which shows essentially severe tibial disease on the right that is consistent with the previous angiogram. He also got a moderate stenosis in the popliteal. LABORATORY DATA: Normal with normal kidney function. IMPRESSION: Right foot ischemia with nonhealing ulcer to right 1st toe tip and rest pain. He had re cent angiography that showed really limited revascularization options, so I discussed the case with Vipul Feliz who is his primary vascular surgeon. He is going to schedule him for an arteriogram some ti me in the next day or 2 and take it from there as far as what further options he has. Dictated By: LEFTY NICHOLAS/AKI Conf#: [id number] DID#: [id number] CC: TORRES ALMONTE MD; SAMANTA Alvarez; JEREMI BAL MD; BRENT JACKSON MD;*EndCC*
[2018-11-10 14:27] VITALS: BP 114/56; PULSE 78; RESP 18
[2018-11-10] MEDS: DEXTROSE 5%-0.45% NACL 1,000 ML IV SCH ×2 (15:30→23:27)
[2018-11-10 20:34] VITALS: BP 122/56; PULSE 88; RESP 18
[2018-11-10] MEDS: DOCUSATE SODIUM 100 MG CAP PO SCH (20:59)
[2018-11-10] MEDS: ATORVASTATIN 80 MG TAB PO SCH (20:59)
[2018-11-10] MEDS: HYDROCODONE/APAP (5/325) TAB PO PRN (21:00)
[2018-11-10] MEDS: morphine 4 MG/ML VIAL IV PRN (23:32)
[2018-11-11] VITALS (9 sets, daily range): BP systolic 110–139; BP diastolic 56–76; PULSE 76–88; RESP 18–19
[2018-11-11] MEDS: DEXTROSE 5%-0.45% NACL 1,000 ML IV SCH ×3 (01:30→20:13)
[2018-11-11] MEDS: VANCOMYCIN 500 MG (PMX) 100 ML IVPB SCH (08:01)
[2018-11-11] MEDS: ACCU-CHEK XX SCH ×6 (08:02→20:02)
[2018-11-11] MEDS: ASPIRIN 81 MG TAB PO SCH (08:04)
[2018-11-11] MEDS: HEPARIN 5,000 UNIT/1 ML VIAL SC SCH ×2 (08:05→20:13)
[2018-11-11] MEDS: CLOPIDOGREL 75 MG TAB PO SCH (08:05)
[2018-11-11] MEDS: PENTOXIFYLLINE (SR) 400 MG TAB PO SCH ×3 (09:00→20:13)
[2018-11-11] MEDS: DOCUSATE SODIUM 100 MG CAP PO SCH ×2 (09:00→20:13)
[2018-11-11] MEDS: ACETYLCYSTEINE 600 MG CAP PO SCH ×2 (09:00→20:13)
[2018-11-11] MEDS: CILOSTAZOL 100 MG TAB PO SCH ×2 (10:52→20:13)
[2018-11-11] MEDS ORDERED: LIDOCAINE 1% (MDV) 20 ML INJ ONE (11:13)
[2018-11-11] MEDS ORDERED: IODIXANOL LOCM 100 ML BTL ONE (11:13)
[2018-11-11] MEDS ORDERED: FENTAnyl 50 MCG/ML VIAL ONE (11:22)
[2018-11-11] MEDS ORDERED: MIDAZOLAM 1 MG/ML 2 ML INJ ONE (11:22)
[2018-11-11] MEDS ORDERED: SOD CHLORIDE 0.9% 1,000 ML IV SCH (12:40)
--- NOTE | 2018-11-11 12:40 | SIPON ---
Date/Time of Note Date/Time of Note DATE: 11/11/18 TIME: 12:38 Operative Report Preoperative Diagnosis Right 1st toe gangrene/rest pain Postoperative Diagnosis same Operation/Procedure Performed Aortogram, BLE angiogram, angioplasty of distal AT and proximal peroneal occlus ions, mid AT and peroneal stenotic lesions Surgeon see signature line assisted living coordinator n/a Anesthesia: moderate sedation, other (local) Estimated blood loss: minimal Transfusion Required none Specimen n/a Grafts/Implants none Complications none SAMANTA RECINOS MD November 11, 2018 12:40
[2018-11-11] MEDS ORDERED: HEPARIN 1000 UNITS/ML 10 ML INJ ONE (12:47)
--- NOTE | 2018-11-11 14:59 | OPR ---
DATE OF OPERATION: 11/11/2018 PREOPERATIVE DIAGNOSIS: Right 1st toe gangrene and rest pain. POSTOPERATIVE DIAGNOSIS: Right 1st toe gangrene and rest pain. PROCEDURES: 1. Aortogram. 2. Bilateral lower extremity angiograms. 3. Angioplasty of right anterior tibial and peroneal artery occlusions. SURGEON: Samanta Feliz MD ANESTHESIA: Moderate sedation and local. ESTIMATED BLOOD LOSS: Minimal. SPECIMENS: None. COMPLICATIONS: None. PREOPERATIVE INDICATIONS: This is a 73-year-old gentleman with diabetes and severe peripheral vascular disease with right 1st toe gangrene that had not been healing despite previous angiogram with opening of the distal anterior tibial artery. The patient had poor pedal flow in general. He now presents with worsening rest pain. He now presents to the angiography suite for angiogram with possible intervention. The indications, risks and benefits of the procedure were discussed with the patient who understood and agreed to proceed. ANGIOGRAPHIC FINDINGS: 1. Patent infrarenal abdominal aorta without any aneurysmal degeneration. 2. Patent bilateral common iliac, internal iliac and external iliac arteries. 3. Patent left common femoral, proximal superficial femoral and profunda femoral arteries. 4. Patent right common femoral, superficial femoral and profunda femoral arteries. 5. Patent right popliteal artery with approximately 40% to 50% focal stenosis but no flow-limiting lesion at the mid popliteal artery. 6. Patent proximal right anterior tibial artery with some scattered stenotic lesions at the mid anterior tibial artery along with subtotal occlusion at the distal anterior tibial artery. The anterior tibial artery goes into the foot as it was very small lateral tarsal branch. There is no visible DP. 7. Patent tibioperoneal trunk that gives off very proximal origin of the peroneal artery which then occludes shortly thereafter and then reconstitutes more distally and around the proximal/mid calf. The peroneal artery is small throughout its entire course with possible stenotic lesions in the mid and distal area as well. 8. The posterior tibial artery is patent at the origin; however occludes very quickly after that and has long segment occlusions throughout the calf and distally. There is reconstitution of very small plantar artery via collaterals down into the foot. 9. There was catholic of inline flow mainly through the peroneal artery and somewhat through the anterior tibial artery. The flow is dominant via the peroneal artery into the collaterals into the plantar. This was markedly improved after intervention. DESCRIPTION OF PROCEDURE: The patient was properly identified, brought to the angiography suite and placed in supine position. Bilateral groins were prepped and draped in the usual sterile fashion. Ultrasound was used to guide access to the left common femoral artery which was noted to be patent but with some calcifications. A micropuncture needle was inserted after local anesthesia was injected. The micropuncture wire was then advanced under fluoroscopy. A micropuncture sheath was placed. J-wire was then advanced and a 5-Sammarinese sheath was placed. Floppy wire and flush catheter were then placed up into the infrarenal aorta and aortogram was performed with findings as above. The wire and catheter were used to select the right iliac system. We then proceeded with right lower extremity angiogram with findings as above. Intervention was planned and a stiff wire was advanced over a glide cath and the sheath was exchanged for 6-Sammarinese by 70 cm sheath. A 6500 units of heparin was administered intravenously. The anterior tibial artery was selected using the floppy wire and the lesions distally were crossed. The glide cath was then used to exchange for an 0.014 Command wire which was placed in lateral tarsal artery. The distal lesions were ballooned using a 2.5 mm balloon and the more proximal/mid lesions were ballooned using a 3-mm balloon. Angiography afterwards demonstrated marked improvement in the lesions; however there was still sluggish flow into the foot due to poor outflow overall. Therefore, decision was made to intervene on the peroneal artery and so the 0.014 wire was retracted and used to select the peroneal artery and the tibioperoneal trunk. Using a Greer 0.014 catheter for support, occlusion was crossed and the wire was placed in the distal peroneal artery. A 3 mm x 200 mm balloon was then advanced and used for angioplasty of the entire peroneal artery stenotic lesions including the proximal occlusions. Completion angiogram demonstrated marked improvement with catholic of inline flow via the peroneal artery to the foot via collaterals to the plantar. There was still improved perfusion to the anterior tibial artery; however due to the poor outflow the peroneal was dominant. The procedure was terminated here and the 0.035 wire was changed and the sheath was retracted back into the left iliac system. Angiography of the left leg was then performed with findings as above. It was amenable to a closure device for the access site. Therefore, the sheath was exchanged for a 6-Sammarinese Angio-Seal. This was deployed with good hemostasis. Manual compression was applied for additional hemostasis. The patient tolerated the procedure well without any immediate complications. He was transferred to recovery room in good condition. Dictated By: SAMANTA INFANTE/AKI Conf#: [id number] DID#: [id number] CC: TORRES ALMONTE MD; BRENT JACKSON MD;*GeraCC* MTDD
[2018-11-11] MEDS: DAKINS 0.0125%(1/40) 473 ML SOLUTION TP SCH (16:56)
[2018-11-11] MEDS ORDERED: VANCOMYCIN 1 GM (PMX) 250 ML IVPB SCH (19:30)
[2018-11-11] MEDS: ATORVASTATIN 80 MG TAB PO SCH (20:13)
[2018-11-12 02:21] VITALS: BP 125/58; PULSE 95; RESP 18
[2018-11-12] MEDS: morphine 4 MG/ML VIAL IV PRN ×3 (02:50→11:47)
[2018-11-12] MEDS: ACCU-CHEK XX SCH ×4 (07:20→13:40)
[2018-11-12] MEDS: DEXTROSE 5%-0.45% NACL 1,000 ML IV SCH (07:30)
[2018-11-12] MEDS ORDERED: VANCOMYCIN 750 MG (PMX) 250 ML IVPB SCH (08:00)
[2018-11-12] MEDS: ACETYLCYSTEINE 600 MG CAP PO SCH (08:32)
[2018-11-12] MEDS: PENTOXIFYLLINE (SR) 400 MG TAB PO SCH ×2 (08:32→13:05)
[2018-11-12] MEDS: ASPIRIN 81 MG TAB PO SCH (08:32)
[2018-11-12] MEDS: CLOPIDOGREL 75 MG TAB PO SCH (08:32)
[2018-11-12] MEDS: DAKINS 0.0125%(1/40) 473 ML SOLUTION TP SCH (08:33)
[2018-11-12 08:34] VITALS: BP 109/67; PULSE 102; RESP 18
[2018-11-12] MEDS: HEPARIN 5,000 UNIT/1 ML VIAL SC SCH (08:39)
[2018-11-12] MEDS: CILOSTAZOL 100 MG TAB PO SCH (09:44)
[2018-11-12] MEDS: DOCUSATE SODIUM 100 MG CAP PO SCH (09:44)
--- NOTE | 2018-11-12 10:54 | PDOCDIS ---
Discharge Instructions CONDITION [id number] Patient Condition: [id number] Stable HOME CARE INSTRUCTIONS: [id number] Diet Instructions: [id number] Special Diet: Qudip0f Diabetic diet, preferably 1800-calorie or less ACTIVITY: [id number] Activity Restrictions: [id number] Slowly Increase Activity Rest between Activity Avoid heavy lifting Do not Drive Do not operate Machinery Do not operate Power Tool Avoid Heavy Housework [id number] Bathing Restrictions: [id number] Shower FOLLOW UP/APPOINTMENTS Follow-up Plan Please call the vascular surgeon as well as the litigation legal secretary's office as you have previously done for continued follow-up. Llame al cirujano vascular y al consultorio del podlogo, kathia lo hizo anteriormente para un seguimiento continuo. . OTHER ORDERS: Other Orders: You cannot take your metformin until after November 14, 2018. I have given you to new insulins to cover you until then. 1. The first is Lantus, you will take that every day at the same time for the next 2 days 2. The second one is NovoLog, he will take that before every meal for the next 2 days. You may safely resume your metformin on Thursday, November 15, 2018 No puede zi krause metformina hasta despus del 2018. Le he dado nuevas insulinas para que lo cubran hasta chaz momento. 1. El parveen es Lantus, lo zi todos los sheriff a la misma hora pipe los prximos 2 sheriff. 2. El jerri es NovoLog, lo zi antes de cada comida pipe los prximos 2 sheriff. Puede reanudar krause metformina de manera sierra el sbado 11 2018 BRENT JACKSON November 12, 2018 10:54
--- NOTE | 2018-11-12 10:59 | DS ---
Date/Time of Note Date/Time of Note DATE: 11/12/18 TIME: 10:55 Discharge Summary Admission/Discharge Info Admit Date/Time November 09, 2018 at 05:28 Discharge Date/Time Discharge Diagnosis 1. Right great toe dry gangrene/cellulitis and pain -Status post antibiotic therapy and angiogram November 11, 2018. 2. Hypertension: 3. Type 2 diabetes - Due to recent contrast study, oral hypoglycemics on hold for the next 2 days 4. Normocytic anemia: Likely of chronic disease. 5. PVD Patient Condition: Stable Consults Vascular Surgery: Dr. Feliz Podiatry: Abhijit Wilhelm . Procedures DATE OF OPERATION: 11/11/2018 PREOPERATIVE DIAGNOSIS: Right 1st toe gangrene and rest pain. POSTOPERATIVE DIAGNOSIS: Right 1st toe gangrene and rest pain. PROCEDURES: 1. Aortogram. 2. Bilateral lower extremity angiograms. 3. Angioplasty of right anterior tibial and peroneal artery occlusions. SURGEON: Hernandez Feliz MD ANESTHESIA: Moderate sedation and local. ESTIMATED BLOOD LOSS: Minimal. SPECIMENS: None. COMPLICATIONS: None. PREOPERATIVE INDICATIONS: This is a 73-year-old gentleman with diabetes and severe peripheral vascular disease with right 1st toe gangrene that had not been healing despite previous angiogram with opening of the distal anterior tibial artery. The patient had poor pedal flow in general. He now presents with worsening rest pain. He now presents to the angiography suite for angiogram with possible intervention. The indications, risks and benefits of the procedure were discussed with the patient who understood and agreed to proceed. ANGIOGRAPHIC FINDINGS: 1. Patent infrarenal abdominal aorta without any aneurysmal degeneration. 2. Patent bilateral common iliac, internal iliac and external iliac arteries. 3. Patent left common femoral, proximal superficial femoral and profunda femoral arteries. 4. Patent right common femoral, superficial femoral and profunda femoral arteries. 5. Patent right popliteal artery with approximately 40% to 50% focal stenosis but no flow-limiting lesion at the mid popliteal artery. 6. Patent proximal right anterior tibial artery with some scattered stenotic lesions at the mid anterior tibial artery along with subtotal occlusion at the distal anterior tibial artery. The anterior tibial artery goes into the foot as it was very small lateral tarsal branch. There is no visible DP. 7. Patent tibioperoneal trunk that gives off very proximal origin of the peroneal artery which then occludes shortly thereafter and then reconstitutes more distally and around the proximal/mid calf. The peroneal artery is small throughout its entire course with possible stenotic lesions in the mid and distal area as well. 8. The posterior tibial artery is patent at the origin; however occludes very quickly after that and has long segment occlusions throughout the calf and distally. There is reconstitution of very small plantar artery via collaterals down into the foot. 9. There was buddhist of inline flow mainly through the peroneal artery and somewhat through the anterior tibial artery. The flow is dominant via the peroneal artery into the collaterals into the plantar. This was markedly improved after intervention. . Hospital Course Very pleasant 73-year-old male with right great toe dry gangrene and pain on antibiotic therapy. He was discharged recently and was supposed to follow-up as outpatient with vascular surgery for angiogram, but patient returned to the ER because of persistent non-resolving pain. He did complete antibiotic therapy for cellulitis. He was readmitted and underwent angiogram in-house November 11, 2018. Angiogram findings as summarized above. At this time, the patient has been cleared for discharge by vascular surgery, his pain is much better, and he will follow-up with post vascular surgery, podiatry as well as his primary care doctor in the next 1 to 2 weeks. Patient may require further surgical intervention on his toe, but podiatry wants to give time for demarcation. No further antibiotic therapy is necessary at this time. Patient has been assessed by myself and is in stable condition for discharge. . Home Meds Active Scripts Insulin Glargine* (Lantus*) 100 Unit/Ml Soln, 20 UNIT SC DAILY for 2 Days, #1 VIAL Prov:BRENT JACKSON M. 11/12/18 Syringe W-Needle,Disposab,3 ml (Luer-Lul Syringe-Needle) 1 Each Disp.syrin, EACH MC AC MEALS AND BEDTIME, #20 Prov:BRENT JACKSON M. 11/12/18 Insulin Aspart* (Novolog Insulin Pen*) 100 Unit/Ml Soln, 5 UNIT SC WITH MEALS for 2 Days, #1 VIAL Prov:MANUELADOLFOATITO M. 11/12/18 Acetaminophen* (Tylophen*) 500 Mg Capsule, 1 CAP PO Q6H PRN for PAIN AND OR ELEVATED TEMP, #18 CAP Prov:EVGENY ZUNIGA MD 09/15/16 Reported Medications Sitagliptin* (Januvia*) 100 Mg Tablet, 100 MG PO DAILY, #30 TAB 10/31/18 Glipizide* (Glipizide*) 10 Mg Tablet, 10 MG PO BID, TAB 10/31/18 Benazepril Hcl* (Benazepril Hcl*) 20 Mg Tablet, 20 MG PO DAILY, #30 TAB 10/31/18 Clopidogrel Bisulfate (Clopidogrel) 75 Mg Tablet, 75 MG PO DAILY, #30 TAB 10/31/18 Atorvastatin Calcium* (Atorvastatin Calcium*) 20 Mg Tablet, 1 MG PO QHS, #30 TAB 10/31/18 Aspirin (Aspirin) 81 Mg Chew, 81 MG PO DAILY, TAB.CHEW 10/31/18 Metformin* (Glucophage*) 1,000 Mg Tablet, 1000 MG PO BID, TAB 10/31/18 Discontinued Scripts Levofloxacin* (Levaquin*) 750 Mg Tablet, 750 MG PO DAILY for 5 Days, #5 TAB Prov:MARIANA PAUL S. 11/02/18 Hydromorphone Hcl* (Dilaudid*) 4 Mg Tablet, 4 MG PO Q6H PRN for PAIN, #30 TAB Prov:MARIANA PAUL S. 11/02/18 Follow-up Plan 1. Followup with your primary doctor within the next 1-2 weeks. 1. Siga con krause mdico de cabecera en las prximas 1-2 semanas. 2. Review your medication list with your nurse before leaving and if you need new prescriptions please let your nurse know. 2. Revise krause lista de medicamentos con krause enfermera antes de salir y si necesita recetas nuevas, por favor Hle saber a krause enfermera. 3. I may have made changes to your home medications or given you new prescriptions, please let your primary doctor know as well. 3. puede que haya hecho cambios en marah medicamentos caseros o le haya dado nuevas prescripciones, por favor Hle saber a krause mdico de cabecera tambin. 4. Stay compliant with your medications and report any side effects to your PCP or pharmacist. 4. cumpla con marah medicamentos e informe de cualquier efecto secundario a krause PCP o farmacutico. 5. Return to the ER if you have any concerns and cannot reach your doctors or call your insurance company, they usually have a nurse that can help you. 5. Regrese a la ER si tiene alguna inquietud y no puede comunicarse con marah doctores o llamar a krause compaa de seguros, usualmente tienen joseph enfermera que puede ayudarlo. Primary Care Provider Not On Staff Doctor Time spent on discharge: > 30 minutes Pending Labs Laboratory Tests Test 11/11/18 14:33 11/11/18 17:53 11/11/18 18:10 11/11/18 19:47 Bedside 162 150 187 Glucose mg/dL (70-220) mg/dL (70-220) mg/dL (70-220) Vancomycin 6.6 Level Trough ug/ml (10.0-20 .0) Test 11/12/18 08:35 11/12/18 10:03 Bedside 152 310 Glucose mg/dL (70-220) mg/dL (70-220) BRENT JACKSON November 12, 2018 10:59
[2018-11-12] MEDS ORDERED: INSULIN ASPART [NOVOLOG] 3 ML PEN SC SCH (11:40)
[2018-11-12] MEDS ORDERED: INSULIN GLARGINE [LANTus] (100 UNITS/ML) SYG SC SCH (12:00)
--- NOTE | 2018-11-12 12:53 | PN ---
DATE: 11/11/2018 SUBJECTIVE: The patient currently has been no pain, he did undergo angiogram earlier today without c omplications. PHYSICAL EXAMINATION: VITAL SIGNS: Temperature 98.2, pulse is 78, respirations 19, blood pressure 139/76, saturations 98% on room air. GENERAL: He is alert, is oriented, in no distress. HEENT: Head is normocephalic. Pupils equal and reactive. NECK: Supple. CHEST: Clear. CARDIOVASCULAR: S1 and S2, no murmurs. ABDOMEN: Soft, nontender. GENITOURINARY: Groin exam, angiogram site has minimal oozing, covered with Tegaderm. EXTREMITIES: Physically right great toe remains unchanged, but there is no edema. There is no evide nce of cellulitis or bleeding at this time. No gross evidence of postoperative complications. LABORATORY VALUES: His blood glucose levels have been steady. IMPRESSION: A 73-year-old male with known right toe dry gangrene, status post cellulitis but with a nonradiating pain, who was admitted because he was unable to wait for outpatient angiogram due to sev ere pain. 1. He is status post angiogram of the patient today. 2. Hypertension with good control. 3. Diabetes type 2. We withheld his oral hypoglycemic due to contrast study. The patient is transi tioning to subcutaneous insulin just for a few days. 4. Chronic normocytic anemia. 5. Peripheral arterial disease. DISPOSITION: For now, will continue to monitor the patient in house to ensure no significant complic ations from this procedure, also to ensure that his pain remains better controlled. We will plan to discharge him home tomorrow if cleared by vascular surgery. In the interim resume a diabetic diet an d continue all supportive care. Dictated By: BRENT JACKSON MD BA/NTS Conf#: [id number] DID#: [id number]
[2018-11-12 14:00] VITALS: BP 116/68; PULSE 88; RESP 18
[2018-11-12] MEDS ORDERED: NOVO3I SC (17:27)
[2018-11-12] MEDS ORDERED: [UNRECOGNIZED DRUG - CODE] MC (17:27)
[2018-11-12] MEDS ORDERED: Insulin Glargine SC (17:27)
[2018-11-12] MEDS ORDERED: LANT3I SC (17:28)
== END 2018-11-12 17:10 | disposition home health service (06) | DRG 254 ==
LOC: E/R 23:40 → MS1 11-09 05:28
PROVIDERS: ADMIT Internal Medicine; ATTEND Family Medicine
PROC: B41DYZZ Fluoroscopy of Aorta and Bilateral Lower Extremity Arteries using Other Contrast (ICD-10-PCS; 2018-11-11)
PROC: 047P3ZZ Dilation of Right Anterior Tibial Artery, Percutaneous Approach (ICD-10-PCS; principal; 2018-11-11 11:00)
PROC: 047T3ZZ Dilation of Right Peroneal Artery, Percutaneous Approach (ICD-10-PCS; 2018-11-11 11:00)
DX: E11.52 Type 2 diabetes mellitus with diabetic peripheral angiopathy with gangrene (principal); I70.228 Atherosclerosis of native arteries of extremities with rest pain, other extremity; L03.031 Cellulitis of right toe; I10 Essential (primary) hypertension; D63.8 Anemia in other chronic diseases classified elsewhere; E78.5 Hyperlipidemia, unspecified; E11.42 Type 2 diabetes mellitus with diabetic polyneuropathy; E11.621 Type 2 diabetes mellitus with foot ulcer; L97.519 Non-pressure chronic ulcer of other part of right foot with unspecified severity; Z79.4 Long term (current) use of insulin; Z79.82 Long term (current) use of aspirin
CPT/HCPCS: 36415; 73706; 75630; 80048; 80053; 80202; 82962; 83036; 83735; 84100; 85025; 85610; 85730; 86592; 86803; 87081; 87340; 96374; C1725; C1760; C1769; C1887; C1894; J1170; J1644; J1815; J1885; J2250; J2270; J3010; J3370; J7030; J7042; J7050; L3260; Q9967

== ENCOUNTER 2019-02-15 23:40 | Inpatient (IN) | payer OTHER ==
[~2019-02-15] VITALS: Ht 170.2 cm; Wt 68.0 kg
[~2019-02-15 23:40] MED LIST changes: +AMOX1TAB10 PO; +Docusate Sodium PO; +HYDR-4012 PO; -HYDR4TAB51 PO; +LACT1CAP28 PO; +LANT3I SC; -LEVO750T25 PO; +MORP15TA92 PO; +NOVO3I SC; +POVIDONE IODINE 10% TOP; +PREG50CA PO; +SODI473S5 TP; +VANC750F2 IV; +[UNRECOGNIZED DRUG - CODE] MC
[2019-02-15] MEDS ORDERED: SODIUM CHLORIDE 0.9% 1L BAG IV* STA (23:56)
[2019-02-15] MEDS ORDERED: morphine 4 MG/ML VIAL IV STA (23:56)
[2019-02-15] MEDS ORDERED: CEFEPIME 2GM/50 ML (PMX) 50 ML IVPB STA (23:56)
[2019-02-15] MEDS ORDERED: CLINDAMYCIN 900 MG/D5W (PMX) 50 ML IVPB STA (23:56)
[2019-02-15] MEDS ORDERED: ONDANSETRON 4 MG INJ IV STA (23:56)
[2019-02-16] MEDS ORDERED: VANCOMYCIN 1 GM (PMX) 250 ML IVPB ONE
--- NOTE | 2019-02-16 00:07 | ERD ---
ER Documentation Chief Complaint Chief Complaint TOE INFECTION; HX OF DM; X2 MONTH HPI Translation services were utilized during this patient's encounter Language: Mongolian Source: In person 73-year-old male who presents with persistent pain to ulceration of the right great toe. The patient was seen here in November during which time he was diagnosed with severe peripheral arterial disease with prior intervention. He is also diabetic. Patient did not have emergent surgical intervention at that time. The patient has noted pain ever since then. The pain is worsening over the last week or so. He states that he is having trouble sleeping because of the pain that is 8 out of 10. He denies any fevers or chills. He states that he saw his vascular surgeon or law firm consultant this past week who thought there might be an infection and started him on Augmentin. He completed the course but has no improved symptomatology. He presents because of persistence of symptoms. No acute exacerbation within the past 24 to 48 hours. ROS All systems reviewed and are negative except as per history of present illness. Medications Home Meds Active Scripts Insulin Glargine* (Lantus*) 100 Unit/Ml Soln, 20 UNIT SC DAILY for 2 Days, #1 VIAL Prov:BRENT JACKSON M. 11/12/18 Syringe W-Needle,Disposab,3 ml (Luer-Lul Syringe-Needle) 1 Each Disp.syrin, EACH MC AC MEALS AND BEDTIME, #20 Prov:MANUELADOLFO MorenoATITNavarro M. 11/12/18 Insulin Aspart* (Novolog Insulin Pen*) 100 Unit/Ml Soln, 5 UNIT SC WITH MEALS for 2 Days, #1 VIAL Prov:BRENT JACKSON M. 11/12/18 Acetaminophen* (Tylophen*) 500 Mg Capsule, 1 CAP PO Q6H PRN for PAIN AND OR ELEVATED TEMP, #18 CAP Prov:EVGENY ZUNIGA MD 09/15/16 Reported Medications Sitagliptin* (Januvia*) 100 Mg Tablet, 100 MG PO DAILY, #30 TAB 10/31/18 Glipizide* (Glipizide*) 10 Mg Tablet, 10 MG PO BID, TAB 10/31/18 Benazepril Hcl* (Benazepril Hcl*) 20 Mg Tablet, 20 MG PO DAILY, #30 TAB 10/31/18 Clopidogrel Bisulfate (Clopidogrel) 75 Mg Tablet, 75 MG PO DAILY, #30 TAB 10/31/18 Atorvastatin Calcium* (Atorvastatin Calcium*) 20 Mg Tablet, 1 MG PO QHS, #30 TAB 10/31/18 Aspirin (Aspirin) 81 Mg Chew, 81 MG PO DAILY, TAB.CHEW 10/31/18 Metformin* (Glucophage*) 1,000 Mg Tablet, 1000 MG PO BID, TAB 10/31/18 Allergies Allergies: Coded Allergies: No Known Allergy (Unverified , 10/30/18) PMhx/Soc History of Surgery: No Anesthesia Reaction: No Hx Neurological Disorder: No Hx Respiratory Disorders: No Hx Cardiac Disorders: No Hx Psychiatric Problems: No Hx Miscellaneous Medical Probl: No Hx Alcohol Use: No Hx Substance Use: No Hx Tobacco Use: No FmHx Family History: diabetes Physical Exam Vitals Vital Signs Date Temp Pulse Resp B/P (MAP) Pulse Ox O2 O2 Flow FiO2 Time Delivery Rate 02/15/19 97.0 79 19 187/82 97 23:45 (117) Physical Exam General: Well developed, well nourished, no acute distress Head: Normocephalic, atraumatic. Eyes: Pupils equally reactive, EOM intact ENT: Moist mucous membranes Neck: Supple, no lymphadenopathy Respiratory: Lungs clear bilaterally, no distress Cardiovascular: RRR, no murmurs, rubs, or gallops Abdominal: Soft, non-tender, non-distended, no peritoneal signs : Deferred MSK: Decreased dorsalis pedis and posterior tibial pulses to bilateral lower extremities. No temperature deficit bilaterally. Right great toe has ulceration to the tip of the toe with surrounding hyperemia and erythema, no significant warmth or crepitus. Neurologic: Alert and oriented, moving all extremities, normal speech, no focal weakness, no cerebellar signs Skin: As described above Psych: Normal mood Result Diagram: 02/16/19702/16/197 Results 24 hrs Laboratory Tests Test 02/16/19 00:07 02/16/19 00:08 POC Venous Lactate 1.4 mmol/L White Blood Count 7.9 10^3/ul Red Blood Count 4.40 10^6/ul Hemoglobin 11.3 g/dl Hematocrit 35.3 % Mean Corpuscular Volume 80.2 fl Mean Corpuscular Hemoglobin 25.7 pg Mean Corpuscular Hemoglobin Concent 32.0 g/dl Red Cell Distribution Width 15.1 % Platelet Count 196 10^3/UL Mean Platelet Volume 9.1 fl Immature Granulocytes % 0.500 % Neutrophils % 44.4 % Lymphocytes % 28.7 % Monocytes % 7.7 % Eosinophils % 18.3 % Basophils % 0.4 % Nucleated Red Blood Cells % 0.0 /100WBC Immature Granulocytes # 0.040 10^3/ul Neutrophils # 3.5 10^3/ul Lymphocytes # 2.3 10^3/ul Monocytes # 0.6 10^3/ul Eosinophils # 1.4 10^3/ul Basophils # 0.0 10^3/ul Nucleated Red Blood Cells # 0.0 10^3/ul Erythrocyte Sedimentation Rate 7 mm/Hr Prothrombin Time 13.5 Sec Prothrombin Time Ratio 1.1 INR International Normalized Ratio 1.02 Activated Partial Thromboplast Time 27.2 Sec Sodium Level 135 mmol/L Potassium Level 4.1 mmol/L Chloride Level 102 mmol/L Carbon Dioxide Level 24 mmol/L Anion Gap 9 Blood Urea Nitrogen 7 mg/dl Creatinine 0.67 mg/dl Est Glomerular Filtrat Rate mL/min mL/min Glucose Level 60 mg/dl Calcium Level 9.7 mg/dl C-Reactive Protein 0.7 mg/dl Current Medications Medications Dose Sig/Sheri Start Time Status Last (Trade) Ordered Route PRN Stop Time Admin Dose Reason Admin Sodium 2,040 ml BOLUS OVER 2 02/15/19 DC 02/16/19 Chloride HOURS STAT 23:56 00:41 (NS) IV* 02/15/19 23:59 Morphine 4 mg ONCE STAT 02/15/19 DC 02/16/19 Sulfate IV 23:56 00:39 (morphine) 02/15/19 23:59 Ondansetron 4 mg ONCE STAT 02/15/19 DC 02/16/19 HCl (Zofran IV 23:56 00:39 Inj) 02/15/19 23:59 Cefepime HCl 50 ml @ ONCE STAT 02/15/19 DC 02/16/19 100 mls/hr IVPB 23:56 01:04 02/16/19 00:25 Vancomycin 250 ml @ ONCE ONCE 02/16/19 02/16/19 HCl 125 mls/hr IVPB 00:00 01:27 02/16/19 01:59 Clindamycin 50 ml @ 50 ONCE STAT 02/15/19 DC 02/16/19 HCl/ mls/hr IVPB 23:56 00:42 Dextrose 02/16/19 00:55 Ondansetron 4 mg BRIDGE ORDER 02/16/19 HCl (Zofran PRN IV 02:00 Inj) NAUSEA/VOMITI 02/17/19 01:59 NG 650 mg ER BRIDGE 02/16/19 Acetaminophen PRN PO 02:00 (Tylenol .MILD PAIN 02/17/19 01:59 Tab) 1-3 OR TEMP Procedures/MDM EKG, MONITORS, & DIAGNOSTIC IMAGING: X-ray right great toe IMPRESSION: 1. No evidence of bone destruction involving the great toe. 2. Tissue loss involving the distal great toe, new from 2017. 3. No soft tissue gas LAB INTERPRETATION: I reviewed the laboratory testing and it shows no evidence of acute process MEDICAL DECISION MAKING: Clinical exam is consistent with progression of peripheral arterial disease and likely diabetic foot ulcer leading to possible osteomyelitis. Patient has no evidence of acute vascular occlusion given the chronicity of symptoms and seem to be persistent since November. Patient likely warrants further hospitalization, IV antibiotics, podiatry and vascular surgery consultations not emergently. Empiric antibiotics will be provided. No evidence of systemic illness ER COURSE: * Laboratory testing is reassuring. Patient was given antibiotics. No evidence of systemic illness. The patient can receive nonemergent consultations as an inpatient. CONSULTATION: None DISPOSITION PLAN: Medical surgical admission Accepting care team and consultations: I discussed the current laboratory data, diagnostic imaging and emergency care provided. Admitting team: Dr. Carmona Admitting team indication: Insurance directed Departure Diagnosis: Primary Impression: Diabetic ulcer of right foot Diabetic foot ulcer location: toe Diabetes mellitus type: type 2 Non- pressure ulcer stage: unspecified non-pressure ulcer stage Qualified Codes: E11.621 - Type 2 diabetes mellitus with foot ulcer; L97.519 - Non-pressure chronic ulcer of other part of right foot with unspecified severity Additional Impression: Peripheral vascular disease due to secondary diabetes Condition: SHAILESH Nobles MD Feb 16, 2019 00:07
[2019-02-16] MEDS ORDERED: ACETAMINOPHEN 325 MG TAB PO PRN ×2 (02:00→02:30)
[2019-02-16] MEDS ORDERED: ONDANSETRON 4 MG INJ IV PRN ×2 (02:00→02:30)
[2019-02-16] MEDS ORDERED: VANCOMYCIN IV PER PHARMACY XX SCH (02:30)
[2019-02-16] MEDS ORDERED: DOCUSATE SODIUM 100 MG CAP PO PRN (02:30)
[2019-02-16] MEDS ORDERED: DEXTROSE 50% 50 ML SYRINGE IV PRN ×2 (02:30)
[2019-02-16] MEDS ORDERED: GLUCAGON 1 MG INJ IM PRN (02:30)
[2019-02-16] MEDS ORDERED: GLUCOSE GEL 15 GRAM TUBE BUCCAL PRN (02:30)
[2019-02-16] MEDS ORDERED: NACL 0.9% 3 ML SYG IV SCH (02:30)
[2019-02-16] MEDS ORDERED: GLUCOSE GEL 15 GRAM TUBE PO PRN ×2 (02:30)
[2019-02-16] MEDS ORDERED: BISACODYL (EC) 5 MG TAB PO PRN (02:30)
[2019-02-16] MEDS ORDERED: hydrALAzine 20 MG INJ IV PRN (02:30)
[2019-02-16 03:16] VITALS: BP 147/67; PULSE 95; RESP 18
[2019-02-16] MEDS: SOD CHLORIDE 0.9% 1,000 ML IV SCH ×3 (03:29→23:31)
[2019-02-16] MEDS: morphine 2 MG INJ IV PRN ×4 (03:33→19:52)
[2019-02-16 03:42] VITALS: Ht 170.2 cm; Wt 68.0 kg
[2019-02-16] MEDS: INSULIN ASPART [NOVOLOG] 3 ML PEN SC SCH ×8 (05:26→21:00)
--- NOTE | 2019-02-16 05:50 | HP ---
Date/Time of Note Date/Time of Note DATE: 02/16/19 TIME: 05:48 Assessment/Plan VTE Prophylaxis SCD applied (from Nsg): Yes (Left lower extremity) Pharmacological prophylaxis: NA/contraindicated Pharm contraindication: low risk/ambulating Lines/Catheters IV Catheter Type (from Nrsg): Peripheral IV Urinary Cath still in place: No Assessment/Plan Hospital Course This is a 73-year male being admitted to the [facility] floor for: 1. 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 Does not have any fevers or elevated white blood cell count, nonetheless will start the patient on vancomycin and Zosyn in the meantime. Pain management. We will keep the patient n.p.o. except meds in case any procedure needs to be performed by the specialist. Will check bilateral venous Dopplers and arterial Dopplers to assess vessel patency. Will consult podiatry , will also need to consult patient's vascular surgeon I will defer this to the day team. 2. Hypertension: Continue home meds. Adjust as needed 3. Type 2 diabetes: We will hold home oral medications, continue home insulin, insulin sliding scale, will check hemoglobin A1c 4. Normocytic anemia: Likely of chronic disease. Continue to monitor. 5. PVD: We will hold Plavix and aspirin in case any interventions need to perform if not then we will resume. Will continue statin. 6. Hyperlipidemia: Continue statin 7. DVT GI prophylaxis: SCDs to the left lower extremity, no GI prophylaxis ind icated next Further treatment strategy will be implemented as per the clinical course Result Diagram: 02/16/19 0008 02/16/19 0008 Results 24hrs Laboratory Tests Test 02/16/19 00:07 02/16/19 00:08 02/16/19 02:15 02/16/19 02:32 POC Venous Lactate 1.4 White Blood Count 7.9 Red Blood Count 4.40 L Hemoglobin 11.3 L Hematocrit 35.3 L Mean Corpuscular 80.2 L Volume Mean Corpuscular 25.7 L Hemoglobin Mean Corpuscular 32.0 Hemoglobin Concent Red Cell 15.1 H Distribution Width Platelet Count 196 # Mean Platelet Volume 9.1 Immature 0.500 H Granulocytes % Neutrophils % 44.4 Lymphocytes % 28.7 Monocytes % 7.7 Eosinophils % 18.3 H Basophils % 0.4 Nucleated Red Blood 0.0 Cells % Immature 0.040 H Granulocytes # Neutrophils # 3.5 Lymphocytes # 2.3 Monocytes # 0.6 Eosinophils # 1.4 H Basophils # 0.0 Nucleated Red Blood 0.0 Cells # Erythrocyte 7 Sedimentation Rate Prothrombin Time 13.5 Prothrombin Time 1.1 Ratio INR International 1.02 Normalized Ratio Activated 27.2 Partial Thromboplast Time Sodium Level 135 Potassium Level 4.1 Chloride Level 102 Carbon Dioxide Level 24 Anion Gap 9 Blood Urea Nitrogen 7 Creatinine 0.67 Est Glomerular Filtrat Rate mL/min Glucose Level 60 L Calcium Level 9.7 C-Reactive Protein 0.7 Lactic Acid Level 1.5 Bedside Glucose 85 Test 02/16/19 05:13 Bedside Glucose 160 HPI/ROS Admit Date/Time Admit Date/Time Feb 16, 2019 at 01:51 Hx of Present Illness Chief complaint right toe pain This is a 73-year-old male who presents with persistent pain to ulceration of the right great toe. The patient was seen here in November during which time he was diagnosed with severe peripheral arterial disease with prior intervention. He is also diabetic. Patient did not have emergent surgical intervention at that time. The patient has noted pain ever since then. The pain is worsening over the last week or so. He states that he is having trouble sleeping because of the pain that is 8 out of 10. He denies any fevers or chills. He states that he saw his vascular surgeon or assistant clinical director this past week who thought there might be an infection and started him on Augmentin. He completed the course but has no improved symptomatology. He reports that his pain got worse and as of brought him to the emergency department. He states that he actually has an appointment with his specialist later today but because the pain was bad he came into the emergency department. Allergies: NKDA Medications: Acetaminophen 500 mg p.o. every 6 hours as needed Aspirin 81 mg p.o. daily Plavix 75 mg p.o. daily Glipizide 10 mg p.o. twice daily Metformin 1000 mg p.o. twice daily Januvia 100 mg daily Atorvastatin 20 mg p.o. nightly Benazepril HCL 20 mg p.o. daily Insulin aspart 5 units with meals Insulin glargine 20 units subcu daily ROS Const: As per HPI Eyes : No pain discharge or redness or change in visual acuity ENT: No pain, sore throat, congestion, congestion, dysphagia or discharge Respiratory: No shortness of breath, cough, sputum, wheezing, or pleuritic pain Cardiovascular: No chest pain, palpitation, PND, or edema GI : no change in appetite, abdominal pain, nausea, vomiting, diarrhea, constipation, or change in the color his stool Genitourinary: No dysuria, hematuria, flank pain , discharge or CVA tenderness Musculoskeletal: As per HPI Skin: As per HPI Neuro: No headache, dizziness, syncope, seizure, focal weakness Endocrine: No polyuria, polydipsia, temperature intolerance Psych: No hallucination, depression, anxiety or suicidal ideation PMH/Family/Social Past Medical History Peripheral vascular disease Diabetes mellitus with peripheral neuropathy Hypertension Hyperlipidemia Right great toe gangrene/diabetic wound Medications Current Medications Ondansetron HCl (Zofran Inj) 4 mg BRIDGE ORDER PRN IV NAUSEA/VOMITING; Start 02/16/19 at 02:00; Stop 02/17/19 at 01:59 Acetaminophen (Tylenol Tab) 650 mg ER BRIDGE PRN PO .MILD PAIN 1-3 OR TEMP; Start 02/16/19 at 02:00; Stop 02/17/19 at 01:59 Sodium Chloride 1,000 ml @ 75 mls/hr [id number] IV Last administered on 02/16/19at 03:29; Admin Dose 75 MLS/HR; Start 02/16/19 at 02:16 IV Flush (NS 3 ml) 3 ml PER PROTOCOL IV ; Start 02/16/19 at 02:30 Ondansetron HCl (Zofran Inj) 4 mg Q6H PRN IV NAUSEA/VOMITING; Start 02/16/19 at 02:30 Acetaminophen (Tylenol Tab) 650 mg Q6H PRN PO .PAIN 1-3 OR TEMP; Start 02/16/19 at 02:30 Morphine Sulfate (morphine) 2 mg Q4H PRN IV .SEVERE PAIN 7-10 Last administered on 02/16/19at 03:33; Admin Dose 2 MG; Start 02/16/19 at 02:30 Docusate Sodium (Colace) 100 mg Q12H PRN PO .CONSTIPATION; Start 02/16/19 at 02:30 Bisacodyl (Dulcolax) 5 mg DAILY PRN PO .CONSTIPATION; Start 02/16/19 at 02:30 Vancomycin HCl (Vanco Iv Per Pharmacy) VANCOMYCIN PER PHARMACY PER PROTOCOL XX ; Start 02/16/19 at 02:30 Piperacillin Sod/ Tazobactam Sod 100 ml @ 200 mls/hr Q6 IVPB ; Start 02/16/19 at 06:00 Atorvastatin Calcium (Lipitor) 20 mg QHS PO ; Start 02/16/19 at 21:00 Benazepril HCl (Lotensin) 20 mg DAILY PO ; Start 02/16/19 at 09:00 Insulin Aspart (Novolog Insulin Pen) 5 unit WITH MEALS SC ; Start 02/16/19 at 07:35 Insulin Glargine (Lantus) 20 units DAILY SC ; Start 02/16/19 at 09:00 Hydralazine HCl (Apresoline) 10 mg Q4H PRN IV ELEVATED BLOOD PRESSURE; Start 02/16/19 at 02:30 Diagnostic Test (Pha) (Accu-Chek) 1 ea 02 XX ; Start 02/17/19 at 02:00 Insulin Aspart (Novolog Insulin Pen) NOVOLOG *MILD* ALGORI... Q4 SC Last a dministered on 02/16/19at 05:26; Admin Dose 1 UNIT; Start 02/16/19 at 05:00 Miscellaneous Information 1 ea NOTE XX ; Start 02/16/19 at 02:30 Glucose (Glutose) 15 gm Q15M PRN PO DECREASED GLUCOSE; Start 02/16/19 at 02:30 Glucose (Glutose) 22.5 gm Q15M PRN PO DECREASED GLUCOSE; Start 02/16/19 at 02:3 0 Dextrose (D50w Syringe) 25 ml Q15M PRN IV DECREASED GLUCOSE; Start 02/16/19 at 02:30 Dextrose (D50w Syringe) 50 ml Q15M PRN IV DECREASED GLUCOSE; Start 02/16/19 at 02:30 Glucagon (Glucagen) 1 mg Q15M PRN IM DECREASED GLUCOSE; Start 02/16/19 at 02:30 Glucose (Glutose) 15 gm Q15M PRN BUCCAL DECREASED GLUCOSE; Start 02/16/19 at 02:30 Vancomycin/Sodium Chloride 250 ml @ 125 mls/hr Q12H IVPB ; Start 02/16/19 at 12:00 Coded Allergies: No Known Allergy (Unverified , 10/30/18) Past Surgical History Angioplasty right lower extremity Family History Significant Family History: no pertinent family hx Social History Alcohol Use: none Smoking Status: Never smoker Drug Use: none Exam/Review of Systems Vital Signs Vitals Vital Signs Date Temp Pulse Resp B/P (MAP) Pulse Ox O2 O2 Flow FiO2 Time Delivery Rate 02/16/19 98.4 95 18 147/67 98 Room Air 03:16 (93) Exam Exam General: Patient is a pleasant male currently 88 in bed in no acute distress HEENT: Atraumatic, normocephalic. The pupils are equal, round and reactive. Extraocular motor are intact Neck: Supple with full range of motion. No rigidity or meningismus Chest: Nontender Lungs: Clear to auscultation bilaterally no crackles rales or wheezing Heart: Normal S1-S2, Regular rhythm and rate. No murmur, S3, or S4 Abdomen: Soft , nontender, nondistended , bowel sounds are present. No guarding no rebound tenderness , No masses or organomegaly. 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 Neurologic: Normal mental status, speech normal, cranial nerves II through XII are intact, motor and sensory are intact, Additional Comments PROCEDURE: DX TOE CLINICAL INDICATION: Right great toe pain. Lesion. Check for osteomyelitis. TECHNIQUE: 3 views. COMPARISON: Right foot x-ray 09/15/2016 FINDINGS: Normal bone mineralization. No bone loss, bony mineralization, lytic or blastic change. There is tissue loss involving the tip of the great toe which has occurred since the 2017 exam. No soft tissue gas or radiopaque foreign body. Vascular calcifications are identified in the midfoot and in the proximal toes.. IMPRESSION: 1. No evidence of bone destruction involving the great toe. 2. Tissue loss involving the distal great toe, new from 2017. 3. No soft tissue gas. RPTAT: HLRS Physician Mikel Date Time Electronically viewed and signed by Physician Mikel on 02/16/2019 01:02 RS/ CC: SHAILESH WEIR MD [id number] [employer] Feb 16, 2019 05:50
[2019-02-16] MEDS: PIPER-TAZO 3.375 GM IV (PMX) 100 ML IVPB SCH ×2 (05:54→12:56)
[2019-02-16] MEDS ORDERED: VANCOMYCIN 500 MG (PMX) 100 ML IVPB ONE (06:00)
[2019-02-16 07:57] VITALS: BP 136/65; PULSE 84; RESP 18
[2019-02-16] MEDS: BENAZEPRIL 20 MG TAB PO SCH (08:53)
[2019-02-16] MEDS ORDERED: INSULIN GLARGINE [LANTus] (100 UNITS/ML) SYG SC SCH (09:00)
[2019-02-16] MEDS ORDERED: MAGNESIUM SULFATE 2 GM/50 ML 50 ML IVPB ONE (11:00)
--- NOTE | 2019-02-16 13:12 | CONS ---
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 Jackson who also agreed -- please cont w/ pain control and further treatments/evaluations as per Dr. Jackson and podiatry Consultation Date/Type/Reason Admit Date/Time Feb 16, 2019 at 01:51 Date of Consultation: Feb 16, 2019 Reason for Consultation R 1st toe gangrene/rest pain Requesting Provider: BRENT JACKSON Date/Time of Note DATE: 02/16/19 TIME: 13:12 Hx of Present Illness 73M w/ DM, HTN and severe PAD w/ h/o R great toe gangrene and rest pain that improve s/p angiogram w/ revascularization of tibial vessels in past w/ poor pedal perfusion now admitted for chronic R great toe dry gangrene w/ new increased rest pain and swelling. He is followed by Dr. Arizmendi of podiatry and pt was recently started on abx for concern for infection. Pt was to follow up in vascular clinic today but was admitted o/n due to increasing pain. He denies F, C, n/v, CP, SOB. He does not have elevated white blood cell count but IV abx were started due to concern for infection at R great toe. He states now that pain is improved w/ medication. 14-point ROS performed and negative except for that noted at HPI Past Medical History As per HPI, neuropathy Home Meds Active Scripts Insulin Glargine* (Lantus*) 100 Unit/Ml Soln, 20 UNIT SC DAILY for 2 Days, #1 VIAL Prov:BRENT JACKSON 11/12/18 Syringe W-Needle,Disposab,3 ml (Luer-Lul Syringe-Needle) 1 Each Disp.syrin, EACH [facility] AC MEALS AND BEDTIME, #20 Prov:BRENT JACKSON. 11/12/18 Insulin Aspart* (Novolog Insulin Pen*) 100 Unit/Ml Soln, 5 UNIT SC WITH MEALS for 2 Days, #1 VIAL Prov:BRENT JACKSON. 11/12/18 Acetaminophen* (Tylophen*) 500 Mg Capsule, 1 CAP PO Q6H PRN for PAIN AND OR ELEVATED TEMP, #18 CAP Prov:EVGENY ZUNIGA MD 09/15/16 Reported Medications Sitagliptin* (Januvia*) 100 Mg Tablet, 100 MG PO DAILY, #30 TAB 10/31/18 Glipizide* (Glipizide*) 10 Mg Tablet, 10 MG PO BID, TAB 10/31/18 Benazepril Hcl* (Benazepril Hcl*) 20 Mg Tablet, 20 MG PO DAILY, #30 TAB 10/31/18 Clopidogrel Bisulfate (Clopidogrel) 75 Mg Tablet, 75 MG PO DAILY, #30 TAB 10/31/18 Atorvastatin Calcium* (Atorvastatin Calcium*) 20 Mg Tablet, 1 MG PO QHS, #30 TAB 10/31/18 Aspirin (Aspirin) 81 Mg Chew, 81 MG PO DAILY, TAB.CHEW 10/31/18 Metformin* (Glucophage*) 1,000 Mg Tablet, 1000 MG PO BID, TAB 10/31/18 Medications Current Medications Ondansetron HCl (Zofran Inj) 4 mg BRIDGE ORDER PRN IV NAUSEA/VOMITING; Start 02/16/19 at 02:00; Stop 02/17/19 at 01:59 Acetaminophen (Tylenol Tab) 650 mg ER BRIDGE PRN PO .MILD PAIN 1-3 OR TEMP; Start 02/16/19 at 02:00; Stop 02/17/19 at 01:59 Sodium Chloride 1,000 ml @ 75 mls/hr [id number] IV Last administered on 02/16/19at 03:29; Admin Dose 75 MLS/HR; Start 02/16/19 at 02:16 IV Flush (NS 3 ml) 3 ml PER PROTOCOL IV ; Start 02/16/19 at 02:30 Ondansetron HCl (Zofran Inj) 4 mg Q6H PRN IV NAUSEA/VOMITING; Start 02/16/19 at 02:30 Acetaminophen (Tylenol Tab) 650 mg Q6H PRN PO .PAIN 1-3 OR TEMP; Start 02/16/19 at 02:30 Morphine Sulfate (morphine) 2 mg Q4H PRN IV .SEVERE PAIN 7-10 Last administered on 02/16/19at 12:38; Admin Dose 2 MG; Start 02/16/19 at 02:30 Docusate Sodium (Colace) 100 mg Q12H PRN PO .CONSTIPATION; Start 02/16/19 at 02:30 Bisacodyl (Dulcolax) 5 mg DAILY PRN PO .CONSTIPATION; Start 02/16/19 at 02:30 Vancomycin HCl (Vanco Iv Per Pharmacy) VANCOMYCIN PER PHARMACY PER PROTOCOL XX ; Start 02/16/19 at 02:30 Piperacillin Sod/ Tazobactam Sod 100 ml @ 200 mls/hr Q6 IVPB Last administered on 02/16/19at 05:54; Admin Dose 200 MLS/HR; Start 02/16/19 at 06:00 Atorvastatin Calcium (Lipitor) 20 mg QHS PO ; Start 02/16/19 at 21:00 Benazepril HCl (Lotensin) 20 mg DAILY PO Last administered on 02/16/19at 08:53; Admin Dose 20 MG; Start 02/16/19 at 09:00 Insulin Aspart (Novolog Insulin Pen) 5 unit WITH MEALS SC ; Start 02/16/19 at 07:35 Insulin Glargine (Lantus) 20 units DAILY SC Last administered on 02/16/19at 10:09; Admin Dose 20 UNITS; Start 02/16/19 at 09:00 Hydralazine HCl (Apresoline) 10 mg Q4H PRN IV ELEVATED BLOOD PRESSURE; Start 02/16/19 at 02:30 Diagnostic Test (Pha) (Accu-Chek) 1 ea 02 XX ; Start 02/17/19 at 02:00 Insulin Aspart (Novolog Insulin Pen) NOVOLOG *MILD* ALGORI... Q4 SC Last administered on 02/16/19at 05:26; Admin Dose 1 UNIT; Start 02/16/19 at 05:00 Miscellaneous Information 1 ea NOTE XX ; Start 02/16/19 at 02:30 Glucose (Glutose) 15 gm Q15M PRN PO DECREASED GLUCOSE; Start 02/16/19 at 02:30 Glucose (Glutose) 22.5 gm Q15M PRN PO DECREASED GLUCOSE; Start 02/16/19 at 02:30 Dextrose (D50w Syringe) 25 ml Q15M PRN IV DECREASED GLUCOSE Last administered on 02/16/19at 09:17; Admin Dose 25 ML; Start 02/16/19 at 02:30 Dextrose (D50w Syringe) 50 ml Q15M PRN IV DECREASED GLUCOSE; Start 02/16/19 at 02:30 Glucagon (Glucagen) 1 mg Q15M PRN IM DECREASED GLUCOSE; Start 02/16/19 at 02:30 Glucose (Glutose) 15 gm Q15M PRN BUCCAL DECREASED GLUCOSE; Start 02/16/19 at 02:30 Vancomycin/Sodium Chloride 250 ml @ 125 mls/hr Q12H IVPB ; Start 02/16/19 at 12:00 Magnesium Sulfate 50 ml @ 25 mls/hr ONCE ONCE IVPB Last administered on 02/16/19at 11:04; Admin Dose 25 MLS/HR; Start 02/16/19 at 11:00; Stop 02/16/19 at 12:59 Allergies: Coded Allergies: No Known Allergy (Unverified , 10/30/18) Past Surgical History RLE angiogram R 1st toe debridement, partial toenail removal by podiatry Family History Significant Family History: no pertinent family hx Social History Alcohol Use: none Smoking Status: Never smoker Drug Use: none Exam/Review of Systems Exam Vitals Vital Signs Date Temp Pulse Resp B/P (MAP) Pulse Ox O2 O2 Flow FiO2 Time Delivery Rate 02/16/19 98.3 84 18 136/65 96 07:57 (88) 02/16/19 Room Air 03:16 Intake and Output 02/15/19 02/15/19 02/16/19 1515:00 23:00 07:00 IntakeIntake Total 250 ml BalanceBalance 250 ml Exam Gen: AAOx3, NAD Neck: supple Lungs: Clear Heart: Regular Abd: soft, NT, ND Extr: R 1st toe w/ chronic dry gangrenous wound at tip and at partial toenail removal area; +edema, +dependent rubor, +tenderness, no drainage, no purulence L foot cool but no cyanosis, no edema, no wounds, tenderness Pulses: 2+palpable bilateral femoral and popliteal pulses, non-palpable bilateral pedal pulses Results Result Diagram: 02/16/19 0510 02/16/19 0510 Results 24hrs Laboratory Tests Test 02/16/19 00:07 02/16/19 00:08 02/16/19 02:15 02/16/19 02:32 POC Venous Lactate 1.4 White Blood Count 7.9 Red Blood Count 4.40 L Hemoglobin 11.3 L Hematocrit 35.3 L Mean Corpuscular 80.2 L Volume Mean Corpuscular 25.7 L Hemoglobin Mean Corpuscular 32.0 Hemoglobin Concent Red Cell 15.1 H Distribution Width Platelet Count 196 # Mean Platelet Volume 9.1 Immature 0.500 H Granulocytes % Neutrophils % 44.4 Lymphocytes % 28.7 Monocytes % 7.7 Eosinophils % 18.3 H Basophils % 0.4 Nucleated Red Blood 0.0 Cells % Immature 0.040 H Granulocytes # Neutrophils # 3.5 Lymphocytes # 2.3 Monocytes # 0.6 Eosinophils # 1.4 H Basophils # 0.0 Nucleated Red Blood 0.0 Cells # Erythrocyte 7 Sedimentation Rate Prothrombin Time 13.5 Prothrombin Time 1.1 Ratio INR International 1.02 Normalized Ratio Activated 27.2 Partial Thromboplast Time Sodium Level 135 Potassium Level 4.1 Chloride Level 102 Carbon Dioxide Level 24 Anion Gap 9 Blood Urea Nitrogen 7 Creatinine 0.67 Est Glomerular Filtrat Rate mL/min Glucose Level 60 L Calcium Level 9.7 C-Reactive Protein 0.7 Lactic Acid Level 1.5 Bedside Glucose 85 Test 02/16/19 05:10 02/16/19 05:13 02/16/19 08:56 02/16/19 09:46 White Blood Count 6.3 # Red Blood Count 3.98 L Hemoglobin 10.4 L Hematocrit 33.1 L Mean Corpuscular 83.2 Volume Mean Corpuscular 26.1 L Hemoglobin Mean Corpuscular 31.4 L Hemoglobin Concent Red Cell 15.2 H Distribution Width Platelet Count 191 Mean Platelet Volume 10.4 Immature 0.300 Granulocytes % Neutrophils % 60.1 Lymphocytes % 18.7 Monocytes % 6.6 Eosinophils % 13.8 H Basophils % 0.5 Nucleated Red Blood 0.0 Cells % Immature 0.020 Granulocytes # Neutrophils # 3.8 Lymphocytes # 1.2 Monocytes # 0.4 Eosinophils # 0.9 H Basophils # 0.0 Nucleated Red Blood 0.0 Cells # Sodium Level 139 Potassium Level 4.3 Chloride Level 109 Carbon Dioxide Level 24 Anion Gap 6 Blood Urea Nitrogen 7 Creatinine 0.66 Est Glomerular Filtrat Rate mL/min Glucose Level 152 Hemoglobin A1c 6.5 H Lactic Acid Level 1.5 Calcium Level 8.4 Magnesium Level 1.6 L Total Bilirubin 0.3 Direct Bilirubin 0.00 Indirect Bilirubin 0.3 Aspartate Amino 22 Transf (AST/SGOT) Alanine 23 Aminotransferase (AL T/SGPT) Alkaline Phosphatase 68 Total Protein 6.1 Albumin 3.4 Globulin 2.70 Albumin/Globulin 1.25 Ratio Triglycerides Level 93 Cholesterol Level 68 L LDL Cholesterol, 23 Calculated HDL Cholesterol 26 L Cholesterol/HDL 2.6 Ratio Thyroid Stimulating 0.981 Hormone (TSH) Bedside Glucose 160 67 L 155 Test 02/16/19 10:06 02/16/19 13:07 Bedside Glucose 152 81 Medications Medication Current Medications Ondansetron HCl (Zofran Inj) 4 mg BRIDGE ORDER PRN IV NAUSEA/VOMITING; Start 02/16/19 at 02:00; Stop 02/17/19 at 01:59 Acetaminophen (Tylenol Tab) 650 mg ER BRIDGE PRN PO .MILD PAIN 1-3 OR TEMP; Start 02/16/19 at 02:00; Stop 02/17/19 at 01:59 Sodium Chloride 1,000 ml @ 75 mls/hr [id number] IV Last administered on 02/16/19at 03:29; Admin Dose 75 MLS/HR; Start 02/16/19 at 02:16 IV Flush (NS 3 ml) 3 ml PER PROTOCOL IV ; Start 02/16/19 at 02:30 Ondansetron HCl (Zofran Inj) 4 mg Q6H PRN IV NAUSEA/VOMITING; Start 02/16/19 at 02:30 Acetaminophen (Tylenol Tab) 650 mg Q6H PRN PO .PAIN 1-3 OR TEMP; Start 02/16/19 at 02:30 Morphine Sulfate (morphine) 2 mg Q4H PRN IV .SEVERE PAIN 7-10 Last administered on 02/16/19at 12:38; Admin Dose 2 MG; Start 02/16/19 at 02:30 Docusate Sodium (Colace) 100 mg Q12H PRN PO .CONSTIPATION; Start 02/16/19 at 02:30 Bisacodyl (Dulcolax) 5 mg DAILY PRN PO .CONSTIPATION; Start 02/16/19 at 02:30 Vancomycin HCl (Vanco Iv Per Pharmacy) VANCOMYCIN PER PHARMACY PER PROTOCOL XX ; Start 02/16/19 at 02:30 Piperacillin Sod/ Tazobactam Sod 100 ml @ 200 mls/hr Q6 IVPB Last administered on 02/16/19at 05:54; Admin Dose 200 MLS/HR; Start 02/16/19 at 06:00 Atorvastatin Calcium (Lipitor) 20 mg QHS PO ; Start 02/16/19 at 21:00 Benazepril HCl (Lotensin) 20 mg DAILY PO Last administered on 02/16/19at 08:53; Admin Dose 20 MG; Start 02/16/19 at 09:00 Insulin Aspart (Novolog Insulin Pen) 5 unit WITH MEALS SC ; Start 02/16/19 at 07:35 Insulin Glargine (Lantus) 20 units DAILY SC Last administered on 02/16/19at 10:09; Admin Dose 20 UNITS; Start 02/16/19 at 09:00 Hydralazine HCl (Apresoline) 10 mg Q4H PRN IV ELEVATED BLOOD PRESSURE; Start 02/16/19 at 02:30 Diagnostic Test (Pha) (Accu-Chek) 1 ea 02 XX ; Start 02/17/19 at 02:00 Insulin Aspart (Novolog Insulin Pen) NOVOLOG *MILD* ALGORI... Q4 SC Last administered on 02/16/19at 05:26; Admin Dose 1 UNIT; Start 02/16/19 at 05:00 Miscellaneous Information 1 ea NOTE XX ; Start 02/16/19 at 02:30 Glucose (Glutose) 15 gm Q15M PRN PO DECREASED GLUCOSE; Start 02/16/19 at 02:30 Glucose (Glutose) 22.5 gm Q15M PRN PO DECREASED GLUCOSE; Start 02/16/19 at 02:30 Dextrose (D50w Syringe) 25 ml Q15M PRN IV DECREASED GLUCOSE Last administered on 02/16/19at 09:17; Admin Dose 25 ML; Start 02/16/19 at 02:30 Dextrose (D50w Syringe) 50 ml Q15M PRN IV DECREASED GLUCOSE; Start 02/16/19 at 02:30 Glucagon (Glucagen) 1 mg Q15M PRN IM DECREASED GLUCOSE; Start 02/16/19 at 02:30 Glucose (Glutose) 15 gm Q15M PRN BUCCAL DECREASED GLUCOSE; Start 02/16/19 at 02:30 Vancomycin/Sodium Chloride 250 ml @ 125 mls/hr Q12H IVPB ; Start 02/16/19 at 12:00 Magnesium Sulfate 50 ml @ 25 mls/hr ONCE ONCE IVPB Last administered on 02/16/19at 11:04; Admin Dose 25 MLS/HR; Start 02/16/19 at 11:00; Stop 02/16/19 at 12:59 SAMANTA RECINOS MD Feb 16, 2019 13:12
[2019-02-16] MEDS: VANCOMYCIN 750 MG (PMX) 250 ML IVPB SCH ×2 (13:22→23:32)
[2019-02-16] MEDS: PREGABALIN 50 MG CAP PO SCH ×2 (13:32→20:09)
[2019-02-16 14:00] VITALS: BP 166/74; PULSE 84; RESP 17
[2019-02-16] MEDS: HYDROCODONE/APAP (7.5/325) TAB PO PRN (15:37)
[2019-02-16] MEDS: LEVOFLOXACIN 500MG/D5W (PMX) 100 ML IVPB SCH (16:16)
[2019-02-16] MEDS: LACTOBACILLUS RHAMNOSUS CAP PO SCH (20:09)
[2019-02-16 20:22] VITALS: BP 142/67; PULSE 84; RESP 18
[2019-02-16] MEDS: POVIDONE IODINE 10% 28.4 GM OINT TOP SCH (20:33)
--- NOTE | 2019-02-16 20:42 | CONS ---
DATE OF ADMISSION: 02/16/2019 DATE OF CONSULTATION: 02/16/2019 CHIEF COMPLAINT: Right hallux ulceration with dry gangrene. HISTORY OF PRESENT ILLNESS: This is a 73-year-old gentleman admitted for cellulitis. The patient emery d been on oral antibiotics. The patient is with known history of peripheral arterial disease. He emery d been seen by Dr. Feliz and recommended revascularization as an outpatient. The patient denies any fever, nausea, vomiting. His pain is decreased since being started on oral antibiotics. PAST MEDICAL HISTORY: Diabetes type 2, normocytic anemia, peripheral arterial disease, hypertension, hyperlipidemia. MEDICATIONS: Include: 1. Vancomycin. 2. Zosyn. ALLERGIES: NONE. SOCIAL HISTORY: Denies any tobacco. PHYSICAL EXAMINATION: VITAL SIGNS: Temperature 98.1, pulse is 84, respiratory rate 17, blood pressure 166/74, pulse oximet ry is 96% on room air. GENERAL: The patient is alert, oriented, in no acute distress. RESPIRATORY: Regular respirations. EXTREMITIES: There are 2+ popliteal pulse. Pedal pulses are nonpalpable. Skin and subcutaneous tis rod atrophy, cellulitis localized to the right hallux. There is a dry gangrene to the distal aspect of the right hallux and pain with palpation. No instability of the hallux. No signs of pressure ulc eration. No lymphangitis. Mycotic nails. No issues, no wounds on the left foot. LABORATORIES: WBC 6.3, hemoglobin 10.4, hematocrit 33.1, platelets 191. Sed rate is 7. Glucose 143 . DIAGNOSTIC DATA: Foot MRI: There is osteomyelitis within the distal half of the distal phalanx gary g on tip of the distal phalanx, mild to moderate subcutaneous edema. Arterial studies on the right A BI 0.8. ASSESSMENT: 1. Right foot osteomyelitis of hallux. 2. Peripheral arterial disease. 3. Gangrene. 4. Diabetes type 2. PLAN: Cellulitis appears to be resolving. There are plans for outpatient revascularization. The anai schwarz would benefit from this prior to surgical intervention of his foot. We will plan surgical inte rvention to include partial hallux amputation as an outpatient. Topical antiseptic recommendation wa s given. Dictated By: THEA KIRKLAND/AKI Conf#: [id number] DID#: [id number] CC: BRENT JACKSON MD; SAMANTA Alvarez;*End*
[2019-02-16] MEDS ORDERED: ATORVASTATIN 20 MG TAB PO SCH (21:00)
--- NOTE | 2019-02-16 22:36 | PN ---
Date/Time of Note Date/Time of Note DATE: 02/16/19 TIME: 13:36 Assessment/Plan VTE Prophylaxis Risk score (from Nsg)>0 risk: 3 Pharmacological prophylaxis: LMWH Lines/Catheters IV Catheter Type (from Nrsg): Peripheral IV Urinary Cath still in place: No Assessment/Plan Hospital Course S: pain in R foot is still uincontrolled on current regimen, reviewed alongside vascular surgery, see plan below O: Constitutional: alert, oriented Head: atraumatic, normocephalic Neck: non-tender, supple Respiratory: clear to auscultation Cardiovascular: regular rate and rhythm Gastrointestinal: S/ NT / ND / +BS Extremities: chronic ulcer on the top of R hallux with swelling and erythema extending from the first big toe to the superior part of the F foot, nail on the first toe partially removed, very tender to light touch L foot : no significant abnormalities assessment and plan: 1. Severe R foot pain -2/2 severe PA, chronic neuropathy, R foot cellulitis and chronic Diabetic ulcer ont the top of R big toe -adjust pain meds for symptomatic control 2. Right great toe dry gangrene/diabetic nonhealing wound: -Patient has known osteo in R big toe, but will get MRI to ensure no extension -also has known PAD see #3 3. Known PAD -had angiogram earlier this year November 11, 2018 that showed diffuse stenosis, at that time, patient did not require any intervention, but per vascular,d/t non resolution of ulcer and continued pain, he needs repeat angigram -this is to be pursued outpatient on 02/18/19 -continue asa, hold plavix ? 4. Foot cellulitis -iv abx for now, f/u MRI finings, just completed oral abx, but recently had minor surgical procedure to remove the nail bed -may need home IV abx ? 2. Hypertension: Continue home meds. Adjust as needed 3. Type 2 diabetes: basal / premeal insulin, current regimen is too tight, will adjust 4. Normocytic anemia: Likely of chronic disease. Continue to monitor. 5. Hyperlipidemia: Continue statin Continue supportive care Result Diagram: 02/16/19 0510 02/16/19 0510 Results 24hrs Laboratory Tests Test 02/16/19 00:07 02/16/19 00:08 02/16/19 02:15 02/16/19 02:32 POC Venous Lactate 1.4 White Blood Count 7.9 Red Blood Count 4.40 L Hemoglobin 11.3 L Hematocrit 35.3 L Mean Corpuscular 80.2 L Volume Mean Corpuscular 25.7 L Hemoglobin Mean Corpuscular 32.0 Hemoglobin Concent Red Cell 15.1 H Distribution Width Platelet Count 196 # Mean Platelet Volume 9.1 Immature 0.500 H Granulocytes % Neutrophils % 44.4 Lymphocytes % 28.7 Monocytes % 7.7 Eosinophils % 18.3 H Basophils % 0.4 Nucleated Red Blood 0.0 Cells % Immature 0.040 H Granulocytes # Neutrophils # 3.5 Lymphocytes # 2.3 Monocytes # 0.6 Eosinophils # 1.4 H Basophils # 0.0 Nucleated Red Blood 0.0 Cells # Erythrocyte 7 Sedimentation Rate Prothrombin Time 13.5 Prothrombin Time 1.1 Ratio INR International 1.02 Normalized Ratio Activated 27.2 Partial Thromboplast Time Sodium Level 135 Potassium Level 4.1 Chloride Level 102 Carbon Dioxide Level 24 Anion Gap 9 Blood Urea Nitrogen 7 Creatinine 0.67 Est Glomerular Filtrat Rate mL/min Glucose Level 60 L Calcium Level 9.7 C-Reactive Protein 0.7 Lactic Acid Level 1.5 Bedside Glucose 85 Test 02/16/19 05:10 02/16/19 05:13 02/16/19 08:56 02/16/19 09:46 White Blood Count 6.3 # Red Blood Count 3.98 L Hemoglobin 10.4 L Hematocrit 33.1 L Mean Corpuscular 83.2 Volume Mean Corpuscular 26.1 L Hemoglobin Mean Corpuscular 31.4 L Hemoglobin Concent Red Cell 15.2 H Distribution Width Platelet Count 191 Mean Platelet Volume 10.4 Immature 0.300 Granulocytes % Neutrophils % 60.1 Lymphocytes % 18.7 Monocytes % 6.6 Eosinophils % 13.8 H Basophils % 0.5 Nucleated Red Blood 0.0 Cells % Immature 0.020 Granulocytes # Neutrophils # 3.8 Lymphocytes # 1.2 Monocytes # 0.4 Eosinophils # 0.9 H Basophils # 0.0 Nucleated Red Blood 0.0 Cells # Sodium Level 139 Potassium Level 4.3 Chloride Level 109 Carbon Dioxide Level 24 Anion Gap 6 Blood Urea Nitrogen 7 Creatinine 0.66 Est Glomerular Filtrat Rate mL/min Glucose Level 152 Hemoglobin A1c 6.5 H Lactic Acid Level 1.5 Calcium Level 8.4 Magnesium Level 1.6 L Total Bilirubin 0.3 Direct Bilirubin 0.00 Indirect Bilirubin 0.3 Aspartate Amino 22 Transf (AST/SGOT) Alanine 23 Aminotransferase (AL T/SGPT) Alkaline Phosphatase 68 Total Protein 6.1 Albumin 3.4 Globulin 2.70 Albumin/Globulin 1.25 Ratio Triglycerides Level 93 Cholesterol Level 68 L LDL Cholesterol, 23 Calculated HDL Cholesterol 26 L Cholesterol/HDL 2.6 Ratio Thyroid Stimulating 0.981 Hormone (TSH) Bedside Glucose 160 67 L 155 Test 02/16/19 10:06 02/16/19 13:07 02/16/19 16:49 Bedside Glucose 152 81 143 Exam/Review of Systems Exam Vitals Vital Signs Date Temp Pulse Resp B/P (MAP) Pulse Ox O2 O2 Flow FiO2 Time Delivery Rate 02/16/19 98.1 84 17 166/74 96 Room Air 14:00 (104) Intake and Output 02/15/19 02/15/19 02/16/19 1515:00 23:00 07:00 IntakeIntake Total 250 ml BalanceBalance 250 ml Results Results 24hrs Laboratory Tests Test 02/16/19 00:07 02/16/19 00:08 02/16/19 02:15 02/16/19 02:32 POC Venous Lactate 1.4 White Blood Count 7.9 Red Blood Count 4.40 L Hemoglobin 11.3 L Hematocrit 35.3 L Mean Corpuscular 80.2 L Volume Mean Corpuscular 25.7 L Hemoglobin Mean Corpuscular 32.0 Hemoglobin Concent Red Cell 15.1 H Distribution Width Platelet Count 196 # Mean Platelet Volume 9.1 Immature 0.500 H Granulocytes % Neutrophils % 44.4 Lymphocytes % 28.7 Monocytes % 7.7 Eosinophils % 18.3 H Basophils % 0.4 Nucleated Red Blood 0.0 Cells % Immature 0.040 H Granulocytes # Neutrophils # 3.5 Lymphocytes # 2.3 Monocytes # 0.6 Eosinophils # 1.4 H Basophils # 0.0 Nucleated Red Blood 0.0 Cells # Erythrocyte 7 Sedimentation Rate Prothrombin Time 13.5 Prothrombin Time 1.1 Ratio INR International 1.02 Normalized Ratio Activated 27.2 Partial Thromboplast Time Sodium Level 135 Potassium Level 4.1 Chloride Level 102 Carbon Dioxide Level 24 Anion Gap 9 Blood Urea Nitrogen 7 Creatinine 0.67 Est Glomerular Filtrat Rate mL/min Glucose Level 60 L Calcium Level 9.7 C-Reactive Protein 0.7 Lactic Acid Level 1.5 Bedside Glucose 85 Test 02/16/19 05:10 02/16/19 05:13 02/16/19 08:56 02/16/19 09:46 White Blood Count 6.3 # Red Blood Count 3.98 L Hemoglobin 10.4 L Hematocrit 33.1 L Mean Corpuscular 83.2 Volume Mean Corpuscular 26.1 L Hemoglobin Mean Corpuscular 31.4 L Hemoglobin Concent Red Cell 15.2 H Distribution Width Platelet Count 191 Mean Platelet Volume 10.4 Immature 0.300 Granulocytes % Neutrophils % 60.1 Lymphocytes % 18.7 Monocytes % 6.6 Eosinophils % 13.8 H Basophils % 0.5 Nucleated Red Blood 0.0 Cells % Immature 0.020 Granulocytes # Neutrophils # 3.8 Lymphocytes # 1.2 Monocytes # 0.4 Eosinophils # 0.9 H Basophils # 0.0 Nucleated Red Blood 0.0 Cells # Sodium Level 139 Potassium Level 4.3 Chloride Level 109 Carbon Dioxide Level 24 Anion Gap 6 Blood Urea Nitrogen 7 Creatinine 0.66 Est Glomerular Filtrat Rate mL/min Glucose Level 152 Hemoglobin A1c 6.5 H Lactic Acid Level 1.5 Calcium Level 8.4 Magnesium Level 1.6 L Total Bilirubin 0.3 Direct Bilirubin 0.00 Indirect Bilirubin 0.3 Aspartate Amino 22 Transf (AST/SGOT) Alanine 23 Aminotransferase (AL T/SGPT) Alkaline Phosphatase 68 Total Protein 6.1 Albumin 3.4 Globulin 2.70 Albumin/Globulin 1.25 Ratio Triglycerides Level 93 Cholesterol Level 68 L LDL Cholesterol, 23 Calculated HDL Cholesterol 26 L Cholesterol/HDL 2.6 Ratio Thyroid Stimulating 0.981 Hormone (TSH) Bedside Glucose 160 67 L 155 Test 02/16/19 10:06 02/16/19 13:07 02/16/19 16:49 Bedside Glucose 152 81 143 Medications Medication Current Medications Sodium Chloride 1,000 ml @ 75 mls/hr [id number] IV Last administered on 02/16/19at 03:29; Admin Dose 75 MLS/HR; Start 02/16/19 at 02:16 IV Flush (NS 3 ml) 3 ml PER PROTOCOL IV ; Start 02/16/19 at 02:30 Ondansetron HCl (Zofran Inj) 4 mg Q6H PRN IV NAUSEA/VOMITING; Start 02/16/19 at 02:30 Acetaminophen (Tylenol Tab) 650 mg Q6H PRN PO .PAIN 1-3 OR TEMP; Start 02/16/19 at 02:30 Morphine Sulfate (morphine) 2 mg Q4H PRN IV .SEVERE PAIN 7-10 Last administered on 02/16/19at 12:38; Admin Dose 2 MG; Start 02/16/19 at 02:30 Docusate Sodium (Colace) 100 mg Q12H PRN PO .CONSTIPATION; Start 02/16/19 at 02:30 Bisacodyl (Dulcolax) 5 mg DAILY PRN PO .CONSTIPATION; Start 02/16/19 at 02:30 Vancomycin HCl (Vanco Iv Per Pharmacy) VANCOMYCIN PER PHARMACY PER PROTOCOL XX ; Start 02/16/19 at 02:30 Atorvastatin Calcium (Lipitor) 20 mg QHS PO ; Start 02/16/19 at 21:00 Benazepril HCl (Lotensin) 20 mg DAILY PO Last administered on 02/16/19at 08:53; Admin Dose 20 MG; Start 02/16/19 at 09:00 Hydralazine HCl (Apresoline) 10 mg Q4H PRN IV ELEVATED BLOOD PRESSURE Last administered on 02/16/19at 15:33; Admin Dose 10 MG; Start 02/16/19 at 02:30 Diagnostic Test (Pha) (Accu-Chek) 1 ea 02 XX ; Start 02/17/19 at 02:00 Insulin Aspart (Novolog Insulin Pen) NOVOLOG *MILD* ALGORI... Q4 SC Last administered on 02/16/19at 05:26; Admin Dose 1 UNIT; Start 02/16/19 at 05:00 Miscellaneous Information 1 ea NOTE XX ; Start 02/16/19 at 02:30 Glucose (Glutose) 15 gm Q15M PRN PO DECREASED GLUCOSE; Start 02/16/19 at 02:30 Glucose (Glutose) 22.5 gm Q15M PRN PO DECREASED GLUCOSE; Start 02/16/19 at 02:30 Dextrose (D50w Syringe) 25 ml Q15M PRN IV DECREASED GLUCOSE Last administered on 02/16/19at 09:17; Admin Dose 25 ML; Start 02/16/19 at 02:30 Dextrose (D50w Syringe) 50 ml Q15M PRN IV DECREASED GLUCOSE; Start 02/16/19 at 02:30 Glucagon (Glucagen) 1 mg Q15M PRN IM DECREASED GLUCOSE; Start 02/16/19 at 02:30 Glucose (Glutose) 15 gm Q15M PRN BUCCAL DECREASED GLUCOSE; Start 02/16/19 at 02:30 Vancomycin/Sodium Chloride 250 ml @ 125 mls/hr Q12H IVPB Last administered on 02/16/19at 13:22; Admin Dose 125 MLS/HR; Start 02/16/19 at 12:00 Insulin Glargine (Lantus) 14 units DAILY@0800 SC ; Start 02/17/19 at 08:00 Levofloxacin/ Dextrose 100 ml @ 100 mls/hr Q24H IVPB Last administered on 02/16/19at 16:16; Admin Dose 100 MLS/HR; Start 02/16/19 at 13:00 Docusate Sodium (Colace) 250 mg DAILY PO ; Start 02/17/19 at 09:00 Lactobacillus Acidophilus/ Rhamnosus (Culturelle) 1 cap BID PO ; Start 02/16/19 at 21:00 Acetaminophen/ Hydrocodone Bitart (Tecopa (7.5-325)) 1 tab Q6H PRN PO MODERATE PAIN LEVEL 4-6 Last administered on 02/16/19at 15:37; Admin Dose 1 TAB; Start 02/16/19 at 13:00 Pregabalin (Lyrica) 50 mg TID PO Last administered on 02/16/19at 13:32; Admin Dose 50 MG; Start 02/16/19 at 13:00 Insulin Aspart (Novolog Insulin Pen) 5 unit WITH MEALS SC ; Start 02/17/19 at 07:35 Povidone Iodine (Povidone-Iodine) 1 applic BID TOP ; Start 02/16/19 at 21:00 BRENT JACKSON Feb 16, 2019 18:46
[2019-02-17 01:36] VITALS: BP 144/67; PULSE 76; RESP 17
[2019-02-17] MEDS ORDERED: ACCU-CHEK XX SCH ×2 (02:00)
[2019-02-17] MEDS ORDERED: VANCOMYCIN 1 GM 250 ML IVPB SCH (06:00)
[2019-02-17 07:21] VITALS: BP 151/71; PULSE 81; RESP 18
[2019-02-17] MEDS: INSULIN ASPART [NOVOLOG] 3 ML PEN SC SCH ×6 (07:35→17:18)
[2019-02-17] MEDS: HYDROCODONE/APAP (7.5/325) TAB PO PRN ×2 (07:50→10:19)
[2019-02-17] MEDS: morphine 2 MG INJ IV PRN (07:53)
[2019-02-17] MEDS ORDERED: INSULIN GLARGINE [LANTus] (100 UNITS/ML) SYG SC SCH (08:00)
[2019-02-17] MEDS: PREGABALIN 50 MG CAP PO SCH ×2 (08:15→13:43)
[2019-02-17] MEDS: LACTOBACILLUS RHAMNOSUS CAP PO SCH (08:15)
[2019-02-17] MEDS: BENAZEPRIL 20 MG TAB PO SCH (08:16)
[2019-02-17] MEDS: POVIDONE IODINE 10% 28.4 GM OINT TOP SCH (08:20)
[2019-02-17] MEDS ORDERED: ENOXAPARIN 40 MG/0.4 ML SYG SC SCH (09:00)
[2019-02-17] MEDS ORDERED: DAKINS 0.0125%(1/40) 473 ML SOLUTION TP SCH (09:00)
[2019-02-17] MEDS ORDERED: DOCUSATE SODIUM 250 MG CAP PO SCH (09:00)
[2019-02-17] MEDS: VANCOMYCIN 750 MG (PMX) 250 ML IVPB SCH (11:41)
[2019-02-17] MEDS: LEVOFLOXACIN 500MG/D5W (PMX) 100 ML IVPB SCH (13:43)
[2019-02-17 14:00] VITALS: BP 138/66; PULSE 78; RESP 18
--- NOTE | 2019-02-17 14:09 | PDOCDIS ---
Discharge Instructions CONDITION [id number] Patient Condition: [id number] Stable HOME CARE INSTRUCTIONS: [id number] Special Diet: [id number] Diabetic diet ACTIVITY: [id number] Activity Restrictions: [id number] Slowly Increase Activity Rest between Activity FOLLOW UP/APPOINTMENTS Follow-up Plan Please keep your scheduled appointment to see the vascular surgeon tomorrow by 6:30 AM. Also follow-up with your primary care doctor within the next 1 to 2 weeks as well as the terminal clerk Dr. Arizmendi. You are being discharged with intravenous antibiotics, we have arranged for a home health nurse to come to your home and help you with your antibiotics as well as your wound care. You can also ask them questions about your medications if necessary. I like that Asista a krause jennifer programada para allen al cirujano vascular maana a las 6:30 a.m. Telly smooth un seguimiento con krause mdico de atencin primaria dentro de las prximas 1 a 2 semanas, as kathia con el podlogo Dr. Arizmendi. Est recibiendo el mignon con antibiticos por va intravenosa, hemos acordado que joseph enfermera de sandra en el hogar venga a krause hogar y lo ayude con marah antibiticos y el cuidado de marah heridas. Telly puede hacerles preguntas sobre marah medicamentos si es necesario. . BRENT JACKSON Feb 17, 2019 14:09
--- NOTE | 2019-02-24 00:20 | DS ---
DATE OF ADMISSION: 02/16/2019 DATE OF DISCHARGE: 02/17/2019 PRESENTING COMPLAINT: A 73-year-old man with persistent pain and ulcerations to right great toe with a history of severe peripheral arterial disease. FINAL DIAGNOSES: 1. Severe right foot pain secondary to severe peripheral arterial disease, chronic neuropathy, right foot cellulitis, chronic diabetic ulcer on the top of the right big toe, currently with improved brittany n control on current regimen. The patient on long-acting morphine as well as Lyrica and p.r.n. [place] . 2. Right great toe dry gangrene with diabetic nonhealing wound with concern for osteomyelitis on the big toe. 3. Peripheral arterial disease status post angiogram earlier this year that showed diffuse stenosis but did not require intervention at that time. However, at this time due to persistent pain. No res olution of the ulcer. The patient needs repeat angiogram that was scheduled for 02/18/2019. 3. Foot cellulitis. Continue IV antibiotics, already improved. 4. Hypertension with good control on home meds. 5. Type 2 diabetes, controlled on current basal and premeal insulin regimen. 6. Chronic normocytic anemia secondary to chronic disease, stable. 7. Dyslipidemia, on statin. CONSULTS ON THE CASE: Dr. Samanta Feliz, Dr. Thea Barrett. INHOUSE INTERVENTION: Just merely pain control and antibiotic therapy. HOSPITAL COURSE: Full details are available in the chart for review. In summary, this patient has k nown peripheral arterial disease and a chronic diabetic ulcer with overlying cellulitis and underlyin g osteomyelitis. He also has chronic neuropathy. He came to the ER because of severe pain. He was scheduled to see the vascular surgeon for repeat angiogram at some point. The vascular surgeon saw h im in house but due to logistics could not schedule the procedure while the patient was in house and so patient was discharged to get the procedure done in the office, 02/18/2019. Aside from that, he w as seen by podiatry who did not really have any new interventions or recommendation. The patient is to be planned for surgical intervention to include partial hallux amputation as outpatient. An MRI h as done well since in house to ensure there was no other location for osteomyelitis and there was not , and as such, he was discharged in stable condition on 02/17/2019. He is supposed to have outpatien t angiography on 02/18/2019. For his pain, he was started on long-acting morphine therapy in [facility] to [place] for breakthrough pain and was given antibiotics, IV vancomycin and oxacillin for celluliti s. For further clarifications and information, please review the patient's chart, patient was discha rged in stable condition. RECOMMENDATIONS: Patient should have a diabetic diet. ACTIVITY: As tolerated. FOLLOWUP: As summarized above. Time spent on discharge coordination was more than half an hour. Dictated By: BRENT JACKSON MD BA/NTS Conf#: [id number] DID#: [id number] CC: THEA BARRETT DPM; SAMANTA Alvarez;*End*
== END 2019-02-17 19:30 | disposition home health service (06) | DRG 300 ==
LOC: E/R 23:40 → MS3 02-16 01:51
PROVIDERS: ADMIT Family Medicine; ATTEND Family Medicine
DX: E11.52 Type 2 diabetes mellitus with diabetic peripheral angiopathy with gangrene (principal); E11.621 Type 2 diabetes mellitus with foot ulcer; I96 Gangrene, not elsewhere classified; M86.8X6 Other osteomyelitis, lower leg; L03.115 Cellulitis of right lower limb; I10 Essential (primary) hypertension; D63.8 Anemia in other chronic diseases classified elsewhere; E78.5 Hyperlipidemia, unspecified; L97.519 Non-pressure chronic ulcer of other part of right foot with unspecified severity; E11.69 Type 2 diabetes mellitus with other specified complication; E11.40 Type 2 diabetes mellitus with diabetic neuropathy, unspecified
CPT/HCPCS: 36415; 73660; 73718; 80048; 80053; 80061; 82962; 83036; 83605; 83735; 84100; 84443; 85025; 85610; 85651; 85730; 86140; 93922; 93970; 96374; 96375; J0360; J0692; J1650; J1815; J1956; J2270; J2405; J2543; J3370; J3475; J7030